=== PATIENT | male | born 1940 | race Caucasian/White ===

== ENCOUNTER 2021-05-10 05:11 | Emergency (ER) | payer OTHER ==
--- OUTSIDE RECORDS SUMMARY | 2021-05-10 05:14 | XMS REPORT | Continuity of Care Document ---
:1940 Author Organization [facility] t Address [address] [place] [address] Care Team Providers Name Role Phone Ervin Payne MD Primary Care Physician Johan Hernández MD Attending Clinician Johan HERNÁNDEZ Attending Clinician Unavailable ERVIN PAYNE Attending Clinician Unavailable ETTA Attending Clinician Unavailable Payers Payer Name Policy Type Policy Number Effective Date Expiration Date S ource Problems Condition Condition Condition Status Onset Resolution Last Treating Co mments Source Name Details Category Date Date Treatment Clinician Date Body mass Body mass Problem Active [facility] (BMI) of (BMI) of Memori a 26.0 to 26.0 to l 26.9 [facility] 26.9 [facility] Cardiac Cardiac Problem Active [facility] arrhythmia arrhythmia Josy kes - , , Memoria unspecifie unspecifie l d cardiac d cardiac Outp ati arrhythmia arrhythmia en t type type Clinics Overweight Overweight Problem [facility] High blood High blood Problem Active [facility] pressure pressure [facility] Elevated Elevated Problem Active [facility] BP without BP without Josy kes - diagnosis diagnosis Yuan wanda of of l hypertensi hypertensi Ou tpati on on ent Clinics Abnormal Abnormal Problem Active [facility] CBC CBC [facility] No known No known Disease Unive rs active active ity of problems problems [facility] Allergies, Adverse Reactions, Alerts Allergy Allergy Status Severity Reaction(s) Onset Inactive Treating Comm ents Source Name Type Date Date Clinician NO KNOWN Drug Active Univers ALLERGIE Class ity of S [facility] Social History Social Habit Start Date Stop Date Quantity Comments Source History SDMT University o f Alcohol Comment [place] [facility] History SDMT University o f Alcohol Std [place] [facility] History SDMT University o f Alcohol Binge [place] [facility] Exposure to Not sure University of SARS-CoV-2 [facility] (event) Branch Alcohol intake 2021-03-25 2021-03-25 Lifetime University of 00:00:00 00:00:00 non-drinker [facility] (finding) Branch Tobacco use and 2020-08-10 2020-08-10 Never used Universit y of exposure 00:00:00 00:00:00 [place] [facility] History SDOH 2020-08-10 2020-08-10 1 University o f Alcohol Frequency 00:00:00 00:00:00 [facility] edical Central Sex Assigned At [birth year] Universit y of 00:00:00 00:00:00 [facility] Smoking Status Start Date Stop Date Source Never smoker [facility] Medications Ordered Filled Start Stop Current Ordering Indication Dosage Frequency Signature Comments Components Source Medication Medication Date Date Medication? Clinician (SIG) Name Name methylPREDN 2020-06 Yes Take by Un neo ISolone 0-14 mouth ity of (MEDROL, 00:00: SEE-INSTRU Sathish as KIMI,) 4 mg 00 CTIONS. Medica l tablets follow Branch package directions methylPREDN 2020-06 Yes Take by Un neo ISolone 0-14 mouth ity of (MEDROL, 00:00: SEE-INSTRU Sathish as KIMI,) 4 mg 00 CTIONS. Medica l tablets follow Branch package directions methylPREDN 2020-06 Yes Take by Un neo ISolone 0-14 mouth ity of (MEDROL, 00:00: SEE-INSTRU Sathish as KIMI,) 4 mg 00 CTIONS. Medica l tablets follow Branch package directions meloxicam Yes [id number] 7.5mg Take 1 U nivers 7.5 mg 3-30 tablet by ity of tablet 00:00: mouth [place] 00 daily. Medical Branch meloxicam Yes [id number] 7.5mg Take 1 U nivers 7.5 mg 3-30 tablet by ity of tablet 00:00: mouth 00 daily. Medical Branch meloxicam Yes [id number] 7.5mg Take 1 U nivers 7.5 mg 3-30 tablet by ity of tablet 00:00: mouth [place] [id number] daily. Medical Branch Vitamin D Vitamin D Yes Marcella not [facility] Magnesium Magnesium Yes Marcella not [facility] Zinc Zinc Yes Marcella not [facility] Immunizations Ordered Filled Immunization Date Status Comments [facility] e Immunization Name Name SARS-COV-2 COVID-19 2020-08-29 Completed Unive rsity of PFIZER VACCINE 00:00:00 [facility] SARS-COV-2 COVID-19 2020-08-29 Completed Unive rsity of PFIZER VACCINE 00:00:00 [facility] SARS-COV-2 COVID-19 2020-08-29 Completed Unive rsity of PFIZER VACCINE 00:00:00 [facility] SARS-COV-2 COVID-19 2020-08-08 Completed Unive rsity of PFIZER VACCINE 00:00:00 [facility] SARS-COV-2 COVID-19 2020-08-08 Completed Unive rsity of PFIZER VACCINE 00:00:00 [facility] SARS-COV-2 COVID-19 2020-08-08 Completed Unive rsity of PFIZER VACCINE 00:00:00 [facility] Vital Signs Vital Name Observation Time Observation Value Comments Source Systolic blood 2021-03-25 13:28:00 165 mm[Hg] Univer sity of [facility] Diastolic blood 2021-03-25 13:28:00 95 mm[Hg] Unive rsity of [facility] Heart rate 2021-03-25 13:28:00 59 /min [facility] Body height 2021-03-25 13:28:00 172.7 cm [facility] Body weight 2021-03-25 13:28:00 78.019 kg [facility] BMI 2021-03-25 13:28:00 26.15 kg/m2 [facility] Procedures This patient has no known procedures. Encounters Start End Encounter Admission Attending Care Care Encounter Source Date/Time Date/Time Type Type Clinicians Facility Department ID 2021-03-25 2021-03-25 [facility] [id number] Univers 08:25:00 23:59:00 Encounter [place] [id number] ity of [place] [id number] Sathish as Akbar?Blea [id number] [place] h[place] sanchez [facility] [address] 2021-03-25 2021-03-25 [facility] [id number] Univers 08:22:43 08:47:38 Visit [place] [id number] it y of [place] [id number] Sathish as Akbar?Blea [id number] [place] dicclaudio sanchez 198 [facility] Office [facility] [address] 2021-03-25 2021-03-25 [facility] [id number] Univers 08:30:00 08:30:00 VENTURA [id number] [facility] 2021-03-25 2021-03-25 [facility] [id number] Univers 08:30:00 08:30:00 VENTURA [facility] 2021-03-24 2021-03-24 [facility] [id number] Univers 14:45:00 14:45:00 VENTURA [id number] [facility] 2021-03-24 2021-03-24 [facility] [id number] Univers 14:45:00 14:45:00 VENTURA [facility] 2021-03-22 2021-03-22 Outpatient Tahira DAYLALITOISAIAH [facility] [id number] Univers 10:30:00 10:30:00 TIMA [id number] [facility] 2021-03-22 2021-03-22 [facility] [id number] Univers 10:30:00 10:30:00 TIMA [facility] 2021-02-08 2021-02-08 [facility] [id number] Univers 08:15:00 08:15:00 TIMA [id number] [facility] 2021-02-08 2021-02-08 Outpatient Tahira PAYNE [facility] [id number] Univers 08:15:00 08:15:00 TIMA [facility] 2020-09-08 2020-09-08 Outpatient Tahira PAYNE [facility] [id number] Univers 10:30:00 10:30:00 [facility] [id number] [facility] 2020-09-08 Outpatient Tahira PAYNE [facility] [id number] Univers 10:30:00 10:30:00 TIMA [facility] 2020-08-29 2020-08-29 Outpatient [facility] [id number] Univers 08:40:00 [facility]:40:[facility] 2020-08-10 2020-08-10 Outpatient Tahira PAYNE [facility] [id number] Univers 09:30:00 09:30:00 TIMA [id number] ity [facility] 2020-08-10 2020-08-10 Outpatient Tahira PAYNE [facility] [id number] Univers 09:30:00 09:30:00 TIMA [facility] 2020-08-08 2020-08-08 Outpatient [facility] [id number] Univers 08:35:00 [facility]:35:[facility] 2020-06-17 2020-06-17 Outpatient Tahira ETTA [facility] [id number] Univers 17:40:00 17:40:00 FARSHAD [facility] 2020-01-21 2020-01-21 [facility] [id number] 13:00:00 13:00:00 [facility] 2019-09-05 2019-09-05 [facility] [id number] 08:08:00 08:08:00 [facility] 2019-07-25 2019-07-25 [facility] [id number] 13:45:00 13:45:00 [facility] Results This patient has no known results.
[2021-05-10 05:43] LABS: Basophils % 0.7 % (0-1.3); Hematocrit 37.7 % (39.6-49.0); MPV 7.5 fL (7.6-11.3); RBC Red Blood Cell Count 3.76 M/uL (4.33-5.43)
[2021-05-10 05:47] LABS: Protime INR 0.97
[2021-05-10 05:56] LABS: Urine Blood Trace-intact (Negative); Urine Glucose Negative (Negative); Urine Protein Negative (Negative); Urine Specific Gravity 1.025 (1.005-1.030)
[2021-05-10 05:56] LABS: BUN Blood Urea Nitrogen 17 mg/dL (7-18); Bicarbonate 27 mmol/L (21-32); Glucose Level 100 mg/dL (74-106); Sodium Level 143 mmol/L (136-145); Troponin (Emerg Dept Use Only) < 0.02 ng/mL (0.0-0.045)
--- NOTE | 2021-05-10 07:20 | RAD REPORT ---
EXAM DESCRIPTION: CT - Head angio - 05/10/2021 6:29 am CLINICAL HISTORY: WEAKNESS, stroke-like symptoms TECHNIQUE: During dynamic enhancement using nonionic IV contrast, axial 1 millimeter thick images of the head were obtained. Sagittal and axial reconstruction images were generated using MIP technique and reviewed. All CT scans are performed using dose optimization technique as appropriate and may include automated exposure control or mA/KV adjustment according to patient size. COMPARISON: CT head same date FINDINGS: No aneurysm or vascular malformation identified. Major venous sinuses are patent. Anterior communicating artery is present. The anterior cerebral and middle cerebral artery distributi on show no stenosis, vasculitis or named branch occlusion. The internal carotid arteries show atheros clerotic calcification but no significant luminal narrowing. Basilar artery and distal vertebral art zechariah also without significant finding. Left posterior cerebral artery distribution is unremarkable. There is an acute truncation of the right posterior cerebral artery at the P1 segment origin. No post erior communicating artery or alternative supply to the right BLOCK OPERATOR distribution is seen. CT head exam of the same day does not clearly show evidence for right BLOCK OPERATOR infarction. 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 N o posterior communicating artery or other anatomic variants supply to the right BLOCK OPERATOR distribution. Correlation is needed with any visual field defects or other stroke-like symptoms referable to the me dial right occipital lobe or medial right temporal lobe.
--- NOTE | 2021-05-10 07:24 | RAD REPORT ---
EXAM DESCRIPTION: CT - Neck Angio - 05/10/2021 6:29 am CLINICAL HISTORY: weakness, left-sided facial droop, stroke-like symptoms TECHNIQUE: During dynamic enhancement using nonionic IV contrast, axial 2 mm thick images of the nec k were obtained. Sagittal and axial reconstruction images were generated using MIP technique and revi ewed. All CT scans are performed using dose optimization technique as appropriate and may include automated exposure control or mA/KV adjustment according to patient size. COMPARISON: CT head same date, CT head same date FINDINGS: No aneurysm or vascular malformation identified. No carotid or vertebral dissection. Aortic arch is somewhat limited in evaluation due to bone artifact and dense contrast in the left sub clavian and brachiocephalic veins. Aortic arch is bovine configuration with no origins stenosis. No v ertebral artery origin abnormality identified. Left common carotid artery is tortuous proximally. Min imal atherosclerotic calcifications near the right carotid bulb present without luminal narrowing. No vertebral artery or carotid stenosis, vasculitis or significant finding. Patient has cervical spine degenerative change without acute or pathologic process. Multilevel forami nal stenosis present due to uncovertebral joint hypertrophy and facet joint hypertrophy. IMPRESSION: Negative CT angio neck examination for acute or significant finding.
[2021-05-10] MEDS ORDERED: ALTEPLASE 100 ML IV ONE (07:33)
[2021-05-10] MEDS ORDERED: NA CHLORIDE 0.9% 100 ML ONE (08:20)
--- NOTE | 2021-05-10 08:27 | ER ---
Nurse's Notes [facility] Name: Shahbaz Harper Age: 81 yrs Sex: Male : 1940 Arrival Date: 05/10/2021 Time: 05:15 Bed 3 Private MD: Diagnosis: Cerebral infarction, unspecified Presentation: 05/10 05:10 Chief complaint: EMS states: Called for patient with sudden onset of left-sided lp1 weakness, left facial droop after walking out of bathroom, denies fall; EMS reports tone time at 0420 from patient's . 05:10 Coronavirus screen: At this time, the client does not indicate any symptoms associated lp1 with coronavirus-19. Ebola Screen: No symptoms or risks identified at this time. An acute neurological deficit is present. The patients blood glucose was checked before arriving to the hospital and was found to be normal. Initial Sepsis Screen: Does the patient meet any 2 criteria? No. Patient's initial sepsis screen is negative. Does the patient have a suspected source of infection? No. Patient's initial sepsis screen is negative. Risk Assessment: Do you want to hurt yourself or someone else? Patient reports no desire to harm self or others. Onset of symptoms was May 10, 2021 at 04:20. 05:10 Method Of Arrival: EMS: [facility] lp1 05:10 Acuity: OLE 1 lp1 05:15 Care prior to arrival: IV initiated. 18 GA, in the left antecubital area, Glucose lp1 check: 118. Triage Assessment: 06:02 The onset of the patients symptoms was May 10, 2021 at 04:00. General: Appears in tw5 no apparent distress. Behavior is calm, cooperative. Neuro: Speech is slurred, Facial droop on left. 07:30 Neuro: Reports weakness in left arm and left leg. jd3 Stroke Activation: Symptom onset < 3 hours Physician: Stroke Attending; Name: Erin; Notified At: 05:09; Arrived At: 05:09 Physician: Chief Stroke Resident; Name: ; Notified At: 05:09; Arrived At: Physician: Stroke Resident; Name: ; Notified At: 05:09; Arrived At: Physician: ED Attending; Name: Erin; Notified At: 05:09; Arrived At: 05:09 Physician: ED Resident; Name: ; Notified At: 05:09; Arrived At: Historical: - Allergies: 05:38 No Known Allergies; lp1 - Home Meds: 05:38 None [Active]; lp1 - PMHx: 05:38 None; lp1 - PSHx: 05:38 Tumor removal; lp1 - Immunization history:: Adult Immunizations up to date. - Social history:: Smoking status: Patient denies any tobacco usage or history of. Screenin:20 Fall Risk Fall in past 12 months (25 points). Secondary diagnosis (15 points) IV access tw5 (20 points). Ambulatory Aid- None/Bed Rest/Nurse Assist (0 pts). Gait- Impaired (20 pts.). Mental Status- Overestimates/Forgets Limitations (15 pts.). 05:38 Abuse screen: Denies threats or abuse. Denies injuries from another. Nutritional lp1 screening: No deficits noted. Tuberculosis screening: No symptoms or risk factors identified. Assessment: 05:10 General: Patient arrival; Transported to CT on EMS stretcher. lp1 05:20 VAN Scoring: Arm Drift: Severe drift Patient has been NPO before screening. The patient tw5 is alert, and able to follow commands. The patient exhibits slurred or garbled speech. Provider notified of the indication for Speech Therapy consult. The patient is exhibiting difficulty speaking. The patient is exhibiting difficulty understanding words. The patient is able to swallow own secretions with no drooling or need for suction. The patient failed the bedside swallow screening. The patient will be kept NPO until cleared by Speech Therapy or Physician. Provider notified of bedside swallow screening results: Clement Khan MD. Nursing staff did not feel comfortable giving patient water at this time. Nursing staff did not feel comfortable giving patient water at this time. Mild accumulation of saliva noted. T-PA (Activase) Screening: Indications: Definite evidence of stroke, ischemic, embolic, or hypertensive: Yes. Treatment will start within 4.5 hours onset of symptoms: Yes. Consent for thrombolytic therapy: Yes. Pain: Denies pain. Neuro: Level of Consciousness is awake, alert, obeys commands, Resume Specialist are weak on left Nursing staff advocated for immediate TPA infusion. Doctor stated he wanted to wait until the blood work from the lab had returned. . 06:05 General: Nursing staff still awaiting on further orders from provider. tw5 06:07 General: Patient being transported back to [place] for the second time. . tw5 06:11 General: Spoke to provider about the patient's inability to be able to sign anything. tw5 Patient will hold pen in right hand and state that he is going to sign, but will quickly forget about the pen and simply hold it in the air. . 06:54 General: arrived at the bedside. She stated " I woke around 330 and must have tw5 woken him up. He got to the bathroom and on his way back he fell on his side of the bed. I went over to him and he couldn't get up. I noticed that his face was dropping so I had him lift his arms up and he was having trouble with his left. I would have just drove him to the hospital myself, but I couldn't get him up off the floor. He is a perfectly healthy individual otherwise. I am hoping we can get him back to tip top shape". 07:35 General: Appears comfortable, Behavior is calm, cooperative. Pain: Denies pain. Neuro: jd3 Level of Consciousness is awake, alert, obeys commands, Oriented to person, place, time, situation, Resume Specialist are weak on left. Cardiovascular: Capillary refill < 3 seconds Patient's skin is warm and dry. Rhythm is regular. Respiratory: Airway is patent Respiratory effort is even, unlabored, Respiratory pattern is regular, symmetrical. GI: No signs and/or symptoms were reported involving the gastrointestinal system. : No signs and/or symptoms were reported regarding the genitourinary system. EENT: No signs and/or symptoms were reported regarding the EENT system. Derm: Skin is intact, Skin is dry, Skin is normal, Skin temperature is warm. Musculoskeletal: Circulation, motion, and sensation intact. Range of motion: limited in left arm and left leg, pt reporting weakness. 07:40 Reassessment: provider notified of increase in NIH score. pt prepped for TPA. conformed jd3 consent signed. 07:54 Reassessment: 1 on 1 care started with TPA administration started. jd3 08:30 Reassessment: Patient and/or family updated on plan of care and expected duration. Pain jd3 level reassessed. Patient is alert, oriented x 3, equal unlabored respirations, skin warm/dry/pink. nurse at bedside administering TPA. with 1 on 1 care. Patient states symptoms have improved. 09:14 Reassessment: No changes from previously documented assessment. Patient and/or family jd3 updated on plan of care and expected duration. Pain level reassessed. Patient is alert, oriented x 3, equal unlabored respirations, skin warm/dry/pink. pt resting in bed with at bedside. call beltran in reach. transfer form signed. awaiting life flight for transfer. Patient states symptoms have improved. 09:21 Reassessment: Patient and/or family updated on plan of care and expected duration. Pain jd3 level reassessed. Patient is alert, oriented x 3, equal unlabored respirations, skin warm/dry/pink. report given to life flight. Patient states symptoms have improved. Vital Signs: 05:10 BP 155 / 73; Pulse 67; Resp 18; Temp 97.5(O); Pulse Ox 100% on R/A; Weight 77.11 kg lp1 (R); Height 5 ft. 8 in. (172.72 cm); Pain 0/10; 07:50 BP 170 / 85; Pulse 68; Resp 17 S; Pulse Ox 100% on R/A; jd3 08:30 BP 162 / 101; Pulse 61; Resp 18 S; Pulse Ox 100% on R/A; jd3 09:14 BP 166 / 99; Pulse 63; Resp 18 S; Pulse Ox 99% on R/A; jd3 05:10 Body Mass Index 25.85 (77.11 kg, 172.72 cm) lp1 NIH Stroke Scale Scores: 05:20 NIHSS Score: 7 tw5 05:41 NIHSS Score: 7 mh7 07:35 NIHSS Score: 11 jd3 09:00 NIHSS Score: 2 jd3 ED Course: 05:15 Patient arrived in ED. tw5 05:[address] tw5 05:16 Cindy Bradley is Primary Nurse. tw5 05:20 Patient has correct armband on for positive identification. Placed in gown. Bed in low tw5 position. Call light in reach. Side rails up X2. overhead cleaner on. Pulse ox on. NIBP on. Door closed. Noise minimized. Lights dimmed. Moved to private room. Warm blanket given. Verbal reassurance given. 05:20 Initial lab(s) drawn, by ED staff, sent to lab. Ralph cath inserted, using sterile tw5 technique, 18 Fr., by ED staff, balloon inflated, to gravity drainage, urine specimen collected. Maintain EMS IV. Dressing intact. Good blood return noted. Site clean \\T\\ dry. Gauge \\T\\ site: 18 LAC. 05:21 Ct Stroke Brain Wo Cont In Process Unspecified. EDMS 05:25 EKG completed in triage. Results shown to MD. tw5 05:27 Clement Khan MD is Attending Physician. mh7 05:38 Triage completed. lp1 05:38 Arm band placed on. lp1 05:56 Stroke CXR 1 View In Process Unspecified. EDMS 06:05 COVID-19 SARS RT PCR (Document "Date of Onset" if Symptomatic) Sent. tw5 06:29 CT Head Angio In Process Unspecified. EDMS 06:29 CT Neck Angio In Process Unspecified. EDMS 06:54 TPA consent was signed by at the bedside. tw5 07:54 Inserted saline lock: 22 gauge in right antecubital area, using aseptic technique. jd3 08:16 Attending Physician role handed off by Clement Khan MD juan 08:16 Theo Rubio MD is Attending Physician. juan 09:21 Assist provider with bone marrow aspiration. Patient transferred, IV remains in place. jd3 Administered Medications: 07:54 Drug: Alteplase (Bolus for Stroke) - Activase 0.09 mg/kg {Co-Signature: ss (Estefanía Bush RN).} Route: IV Thrombolytics; Infused Over: 1 mins; 08:54 Follow up: Response: No adverse reaction jd3 09:23 Not Given (pt transferedd): foLIC Acid 1 mg IVPB once jd3 09:23 Not Given (pt transferedd): NS 0.9% 1000 ml IV at 1 bolus Per protocol; 1000 mL bolus jd3 Point of Care Testing: Blood Glucose: 06:02 Blood Glucose: 118 mg/dL; tw5 Ranges: Output: 09:21 Urine: 1200ml (Ralph); Total: 1200ml. jd3 Outcome: 08:26 ER care complete, transfer ordered by MD. martinez 09:22 Transferred by helicopter to [facility] [place], Transfer form completed. jd3 X-rays sent w/ patient. 09:22 Condition: stable 09:22 Instructed on the need for transfer, Demonstrated understanding of instructions. 09:29 Patient left the ED. jd3 NIH Stroke Scale - NIH Stroke Score Date: 05/10/2021 Time: 05:20 Total Score = 7 1a. Level of Consciousness (LOC) - 0(Alert) 1b. Level of Consciousness (LOC) (Month \\T\\ Age) - 0(Both) 1c. LOC Commands (Open \\T\\ Closes Eyes/Electrician Yard) - 0(Both) 2. Best Gaze (Lateral Gaze Paresis) - 0(Normal) 3. Visual Field Loss - 0(No visual loss) 4. Facial Palsy - 2(Partial paralysis) 5a. Left Arm: Motor (10-second hold) - 0(No drift) 5b. Right Arm: Motor (10-second hold) - 2(Drift, some effort against gravity) 6a. Left Leg: Motor (5-second hold - always test supine) - 0(No drift) 6b. Right Leg: Motor (5-second hold - always test supine) - 0(No drift) 7. Limb Ataxia (finger/nose \\T\\ heel/vivas - test with eyes open) - 1(Present in one limb) 8. Sensory Loss (pinprick arms/legs/face) - 0(Normal) 9. Best Language: Aphasia (description/naming/reading) - 1(Mild to moderate aphasia) 10. Dysarthria (speech clarity - read or repeat words) - 1(Mild to Moderate) 11. Extinction and Inattention (visual/tactile/auditory/spatial/personal) - 0(No abnormality) Initials: tw5 NIH Stroke Scale - NIH Stroke Score Date: 05/10/2021 Time: 05:41 Total Score = 7 1a. Level of Consciousness (LOC) - 0(Alert) 1b. Level of Consciousness (LOC) (Month \\T\\ Age) - 0(Both) 1c. LOC Commands (Open \\T\\ Closes Eyes/Electrician Yard) - 0(Both) 2. Best Gaze (Lateral Gaze Paresis) - 0(Normal) 3. Visual Field Loss - 0(No visual loss) 4. Facial Palsy - 2(Partial paralysis) 5a. Left Arm: Motor (10-second hold) - 2(Drift, some effort against gravity) 5b. Right Arm: Motor (10-second hold) - 0(No drift) 6a. Left Leg: Motor (5-second hold - always test supine) - 0(No drift) 6b. Right Leg: Motor (5-second hold - always test supine) - 0(No drift) 7. Limb Ataxia (finger/nose \\T\\ heel/vivas - test with eyes open) - 1(Present in one limb) 8. Sensory Loss (pinprick arms/legs/face) - 0(Normal) 9. Best Language: Aphasia (description/naming/reading) - 1(Mild to moderate aphasia) 10. Dysarthria (speech clarity - read or repeat words) - 1(Mild to Moderate) 11. Extinction and Inattention (visual/tactile/auditory/spatial/personal) - 0(No abnormality) Initials: [facility] NIH Stroke Scale - NIH Stroke Score Date: 05/10/2021 Time: 07:35 Total Score = 11 1a. Level of Consciousness (LOC) - 0(Alert) 1b. Level of Consciousness (LOC) (Month \\T\\ Age) - 0(Both) 1c. LOC Commands (Open \\T\\ Closes Eyes/Electrician Yard) - 0(Both) 2. Best Gaze (Lateral Gaze Paresis) - 1(Partial gaze palsy) 3. Visual Field Loss - 1(Partial hemianopia) 4. Facial Palsy - 2(Partial paralysis) 5a. Left Arm: Motor (10-second hold) - 1(Drift) 5b. Right Arm: Motor (10-second hold) - 0(No drift) 6a. Left Leg: Motor (5-second hold - always test supine) - 1(Drift) 6b. Right Leg: Motor (5-second hold - always test supine) - 0(No drift) 7. Limb Ataxia (finger/nose \\T\\ heel/vivas - test with eyes open) - 2(Present in two limbs) 8. Sensory Loss (pinprick arms/legs/face) - 0(Normal) 9. Best Language: Aphasia (description/naming/reading) - 1(Mild to moderate aphasia) 10. Dysarthria (speech clarity - read or repeat words) - 1(Mild to Moderate) 11. Extinction and Inattention (visual/tactile/auditory/spatial/personal) - 1(Present) Initials: rashad NIH Stroke Scale - NIH Stroke Score Date: 05/10/2021 Time: 09:00 Total Score = 2 1a. Level of Consciousness (LOC) - 0(Alert) 1b. Level of Consciousness (LOC) (Month \\T\\ Age) - 0(Both) 1c. LOC Commands (Open \\T\\ Closes Eyes/Electrician Yard) - 0(Both) 2. Best Gaze (Lateral Gaze Paresis) - 0(Normal) 3. Visual Field Loss - 0(No visual loss) 4. Facial Palsy - 1(Minor Paralysis) 5a. Left Arm: Motor (10-second hold) - 0(No drift) 5b. Right Arm: Motor (10-second hold) - 0(No drift) 6a. Left Leg: Motor (5-second hold - always test supine) - 0(No drift) 6b. Right Leg: Motor (5-second hold - always test supine) - 0(No drift) 7. Limb Ataxia (finger/nose \\T\\ heel/vivas - test with eyes open) - 0(Absent) 8. Sensory Loss (pinprick arms/legs/face) - 0(Normal) 9. Best Language: Aphasia (description/naming/reading) - 1(Mild to moderate aphasia) 10. Dysarthria (speech clarity - read or repeat words) - 0(Normal) 11. Extinction and Inattention (visual/tactile/auditory/spatial/personal) - 0(No abnormality) Initials: [email or web address] Signatures: Dispatcher [employer] Theo Wesley MD MD cha Pena, Laura, RN RN 1 Elvin Smith RN RN jd3 Holmes, Maurice, MD MD 7 Cindy Bradley 5 Estefanía Bush RN Corrections: (The following items were deleted from the chart) 06:31 05:10 BP 155 / 73; Pulse 67bpm; Resp 18bpm; Pulse Ox 100% RA; 77.11 kg lp1 Reported; Height 5 ft. 8 in.; BMI: 25.8; Pain 0/10; lp1 19:32 07:40 Reassessment: provider notified of increase in NIH score. pt prepped for jd3 TPA jd3 19:32 08:30 Reassessment: Patient and/or family updated on plan of care and expected jd3 duration. Pain level reassessed. Patient is alert, oriented x 3, equal unlabored respirations, skin warm/dry/pink. Patient states symptoms have improved. jd3 :32 09:14 Reassessment: No changes from previously documented assessment. Patient jd3 and/or family updated on plan of care and expected duration. Pain level reassessed. Patient is alert, oriented x 3, equal unlabored respirations, skin warm/dry/pink. jd3 :32 09:21 Reassessment: Patient and/or family updated on plan of care and expected jd3 duration. Pain level reassessed. Patient is alert, oriented x 3, equal unlabored respirations, skin warm/dry/pink. report given to life flight. Patient states symptoms have improved. jd3
--- NOTE | 2021-05-10 08:27 | EDPHYS ---
Physician Documentation [facility] Name: Shahbaz Harper Age: 81 yrs Sex: Male : 1940 Arrival Date: 05/10/2021 Time: 05:15 Bed 3 Private MD: ED Physician Theo Rubio HPI: 05/10 05:27 This 81 yrs old Male presents to ER via Unassigned with complaints of S/S of Possible mh7 Stroke. 05:27 The patient's problem is reported as a facial droop, on left, weakness, in the left mh7 upper extremity, in the left side of face. Onset: The symptoms/episode began/occurred today, at 04:00. 05:27 Duration: The episode is continuous. Context: the episode(s) was witnessed, by no one, mh7 symptoms became apparent on May 10, 2021, occurred at home, occurred while the patient was walking, Possible contributing factors include: none. The symptoms are alleviated by nothing. The symptoms are aggravated by nothing. 05:27 Associated signs and symptoms: Pertinent positives: dizziness, gait abnormality, mh7 lightheadedness, weakness, Pertinent negatives: abdominal pain, agitation, blurred vision, chest pain, combativeness, confusion, diaphoresis, diarrhea. Severity of symptoms: At their worst the symptoms were severe today, in the emergency department the symptoms are unchanged. Patient's baseline: Neuro: alert and fully oriented, Motor: no deficits, Ambulation: walks without assistance, Speech: normal. 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 - Social history:: Smoking status: Patient denies any tobacco usage or history of. ROS: 05:27 Constitutional: Negative for fever, chills, and weight loss, Eyes: Negative for injury, mh7 pain, redness, and discharge, ENT: Negative for injury, pain, and discharge, Neck: Negative for injury, pain, and swelling, Cardiovascular: Negative for chest pain, palpitations, and edema, Respiratory: Negative for shortness of breath, cough, wheezing, and pleuritic chest pain, Abdomen/GI: Negative for abdominal pain, nausea, vomiting, diarrhea, and constipation, Back: Negative for injury and pain, : Negative for injury, bleeding, discharge, and swelling, Skin: Negative for injury, rash, and discoloration, Psych: Negative for depression, anxiety, suicide ideation, homicidal ideation, and hallucinations, Allergy/Immunology: Negative for hives, rash, and allergies, Endocrine: Negative for neck swelling, polydipsia, polyuria, polyphagia, and marked weight changes, Hematologic/Lymphatic: Negative for swollen nodes, abnormal bleeding, and unusual bruising. Exam: 05:27 Constitutional: This is a well developed, well nourished patient who is awake, alert, mh7 and in no acute distress. 05:27 Head/Face: Normocephalic, atraumatic. Eyes: Pupils equal round and reactive to light, extra-ocular motions intact. Lids and lashes normal. Conjunctiva and sclera are non-icteric and not injected. Cornea within normal limits. Periorbital areas with no swelling, redness, or edema. Neck: Trachea midline, no thyromegaly or masses palpated, and no cervical lymphadenopathy. Supple, full range of motion without nuchal rigidity, or vertebral point tenderness. No Meningismus. Chest/axilla: Normal chest wall appearance and motion. Nontender with no deformity. No lesions are appreciated. Cardiovascular: Regular rate and rhythm with a normal S1 and S2. No gallops, murmurs, or rubs. Normal PMI, no JVD. No pulse deficits. Respiratory: Lungs have equal breath sounds bilaterally, clear to auscultation and percussion. No rales, rhonchi or wheezes noted. No increased work of breathing, no retractions or nasal flaring. Abdomen/GI: Soft, non-tender, with normal bowel sounds. No distension or tympany. No guarding or rebound. No evidence of tenderness throughout. Back: No spinal tenderness. No costovertebral tenderness. Full range of motion. Skin: Warm, dry with normal turgor. Normal color with no rashes, no lesions, and no evidence of cellulitis. Psych: Awake, alert, with orientation to person, place and time. Behavior, mood, and affect are within normal limits. 05:27 Head/face: 05:27 Musculoskeletal/extremity: Extremities: noted in the left arm: Weakness. mh7 05:27 Neuro: Orientation: is normal, Mentation: is normal, Memory: is normal, Cranial nerves: facial droop noted on left, with forehead involved. Ptosis of left eyebrow, Cerebellar function: dysmetria is noted on the left, Motor: strength is 5/5 in the right arm, Strength is 2/5 in the left arm, Sensation: no obvious gross deficits, Gait: not tested. seizure activity, is not displayed by the patient, Abnormal movements: there are no abnormal movements. 05:43 Radiologist reports: Low density area right frontal lobe of indeterminate age. No mh7 intracranial hemorrhage. 08:27 ECG was reviewed by the Attending Physician. [facility] Vital Signs: 05:10 BP 155 / 73; Pulse 67; Resp 18; Temp 97.5(O); Pulse Ox 100% on R/A; Weight 77.11 kg lp1 (R); Height 5 ft. 8 in. (172.72 cm); Pain 0/10; 07:50 BP 170 / 85; Pulse 68; Resp 17 S; Pulse Ox 100% on R/A; jd3 08:30 BP 162 / 101; Pulse 61; Resp 18 S; Pulse Ox 100% on R/A; jd3 09:14 BP 166 / 99; Pulse 63; Resp 18 S; Pulse Ox 99% on R/A; jd3 05:10 Body Mass Index 25.85 (77.11 kg, 172.72 cm) lp1 NIH Stroke Scale Scores: 05:20 NIHSS Score: 7 tw5 05:41 NIHSS Score: 7 mh7 07:35 NIHSS Score: 11 jd3 09:00 NIHSS Score: 2 jd3 MDM: 05:46 Physician consultation: Canelo Tsang MD was contacted at 05:46, regarding patient's mh7 condition, Discussed with Dr. Tsang who recommended CT angio head neck prior to considering TPA due to CT reading as discussed with radiologist read low-density area right frontal lobe of indeterminate age which will need further clarification as it may pose risk of bleeding to area if given TPA.. 08:10 ED course: Upon receipt of CT angio brain and neck discussed with Dr. Tsang and his 7 recommendation was TPA given here in transfer patient to [facility] for four-vessel angiogram and possible intra-arterial intervention.. 08:14 Transition of care: After a detail discussion of the patient's case, care is 7 transferred to Theo Rubio MD. 08:16 Patient medically screened. [facility] 08:23 Data reviewed: vital signs, nurses notes, EMS record, lab test result(s), EKG, juan radiologic studies, CT scan, plain films. 08:28 Differential diagnosis: CVA, TIA, paralysis. Data interpreted: teletypesetter monitor: rate is juan 67 beats/min, rhythm is regular, Pulse oximetry: on room air is 100 %. Test interpretation: by ED physician or midlevel provider: ECG, plain radiologic studies. Counseling: I had a detailed discussion with the patient and/or guardian regarding: the historical points, exam findings, and any diagnostic results supporting the discharge/admit diagnosis, lab results, radiology results, the need to transfer to another facility, for higher level of care, [facility] does not immediately have the required specialist. 05/10 05:35 Order name: Basic Metabolic Panel; Complete Time: 06:01 [facility] 05/10 05:35 Order name: CBC with Diff; Complete Time: 06:01 [facility] 05/10 05:35 Order name: Protime (+inr); Complete Time: 06:01 [facility] 05/10 05:35 Order name: Ptt, Activated; Complete Time: 06:01 [facility] 05/10 05:35 Order name: Troponin (emerg Dept Use Only); Complete Time: 06:01 [facility] 05/10 05:46 Order name: COVID-19 SARS RT PCR (Document "Date of Onset" if Symptomatic); Complete lp1 Time: 06:59 05/10 05:18 Order name: Ct Stroke Brain Wo Cont [facility] 05/10 05:35 Order name: Stroke CXR 1 View [facility] 05/10 05:52 Order name: CT Head Angio; Complete Time: 07:22 [facility] 05/10 05:52 Order name: CT Neck Angio; Complete Time: 07:24 [facility] 05/10 05:56 Order name: Urine Dipstick-Ancillary; Complete Time: 06:01 [facility] 05/10 05:35 Order name: EKG; Complete Time: 05:35 [facility] 05/10 05:35 Order name: Cardiac monitoring; Complete Time: 05:38 [facility] 05/10 05:35 Order name: EKG - Nurse/Tech; Complete Time: 05:38 [facility] 11/29 05:35 Order name: IV Saline Lock; Complete Time: 05:05/10 05:35 Order name: Labs collected and sent; Complete Time: :05/10 05:35 Order name: NPO; Complete Time: 06:04 05/10 05:35 Order name: O2 Per Protocol; Complete Time: :05/10 05:35 Order name: O2 Sat Monitoring; Complete Time: :05/10 05:35 Order name: Stroke Swallow Screen; Complete Time: 06:05 EC:27 Rate is 60 beats/min. QRS Conner is Normal. [place] interval is normal. QRS interval is juan normal. QT interval is normal. No Q waves. T waves are Normal. No ST changes noted. Clinical impression: NSR w/ Non-specific ST/T Changes and No evidence of ischemia. Interpreted by me. Reviewed by me. Administered Medications: 07:54 Drug: Alteplase (Bolus for Stroke) - Activase 0.09 mg/kg {Co-Signature: ss (Estefanía Bush RN).} Route: IV Thrombolytics; Infused Over: 1 mins; 08:54 Follow up: Response: No adverse reaction jd3 09:23 Not Given (pt transferedd): foLIC Acid 1 mg IVPB once jd3 09:23 Not Given (pt transferedd): NS 0.9% 1000 ml IV at 1 bolus Per protocol; 1000 mL bolus jd3 Point of Care Testing: Blood Glucose: 06:02 Blood Glucose: 118 mg/dL; tw5 Ranges: Critical Glucose Levels:Adult <50 mg/dl or >400 mg/dl <40 mg/dl or >180 mg/dl Disposition Summary: 05/10/21 08:26 Transfer Ordered Transfer Location: [facility] juan Reason: Higher level of care juan Condition: Serious juan Problem: new juan Symptoms: have improved juan Accepting Physician: to dr thurston(05/10/21 09:29) jd3 Diagnosis - Cerebral infarction, unspecified juan Forms: - Medication Reconciliation Form juan - SBAR form juan NIH Stroke Scale - NIH Stroke Score Date: 05/10/2021 Time: 05:20 Total Score = 7 1a. Level of Consciousness (LOC) - 0(Alert) 1b. Level of Consciousness (LOC) (Month \\T\\ Age) - 0(Both) 1c. LOC Commands (Open \\T\\ Closes Eyes/Sailmaker) - 0(Both) 2. Best Gaze (Lateral Gaze Paresis) - 0(Normal) 3. Visual Field Loss - 0(No visual loss) 4. Facial Palsy - 2(Partial paralysis) 5a. Left Arm: Motor (10-second hold) - 0(No drift) 5b. Right Arm: Motor (10-second hold) - 2(Drift, some effort against gravity) 6a. Left Leg: Motor (5-second hold - always test supine) - 0(No drift) 6b. Right Leg: Motor (5-second hold - always test supine) - 0(No drift) 7. Limb Ataxia (finger/nose \\T\\ heel/vivas - test with eyes open) - 1(Present in one limb) 8. Sensory Loss (pinprick arms/legs/face) - 0(Normal) 9. Best Language: Aphasia (description/naming/reading) - 1(Mild to moderate aphasia) 10. Dysarthria (speech clarity - read or repeat words) - 1(Mild to Moderate) 11. Extinction and Inattention (visual/tactile/auditory/spatial/personal) - 0(No abnormality) Initials: tw5 NIH Stroke Scale - NIH Stroke Score Date: 05/10/2021 Time: 05:41 Total Score = 7 1a. Level of Consciousness (LOC) - 0(Alert) 1b. Level of Consciousness (LOC) (Month \\T\\ Age) - 0(Both) 1c. LOC Commands (Open \\T\\ Closes Eyes/Sailmaker) - 0(Both) 2. Best Gaze (Lateral Gaze Paresis) - 0(Normal) 3. Visual Field Loss - 0(No visual loss) 4. Facial Palsy - 2(Partial paralysis) 5a. Left Arm: Motor (10-second hold) - 2(Drift, some effort against gravity) 5b. Right Arm: Motor (10-second hold) - 0(No drift) 6a. Left Leg: Motor (5-second hold - always test supine) - 0(No drift) 6b. Right Leg: Motor (5-second hold - always test supine) - 0(No drift) 7. Limb Ataxia (finger/nose \\T\\ heel/vivas - test with eyes open) - 1(Present in one limb) 8. Sensory Loss (pinprick arms/legs/face) - 0(Normal) 9. Best Language: Aphasia (description/naming/reading) - 1(Mild to moderate aphasia) 10. Dysarthria (speech clarity - read or repeat words) - 1(Mild to Moderate) 11. Extinction and Inattention (visual/tactile/auditory/spatial/personal) - 0(No abnormality) Initials: mh7 NIH Stroke Scale - NIH Stroke Score Date: 05/10/2021 Time: 07:35 Total Score = 11 1a. Level of Consciousness (LOC) - 0(Alert) 1b. Level of Consciousness (LOC) (Month \\T\\ Age) - 0(Both) 1c. LOC Commands (Open \\T\\ Closes Eyes/Sailmaker) - 0(Both) 2. Best Gaze (Lateral Gaze Paresis) - 1(Partial gaze palsy) 3. Visual Field Loss - 1(Partial hemianopia) 4. Facial Palsy - 2(Partial paralysis) 5a. Left Arm: Motor (10-second hold) - 1(Drift) 5b. Right Arm: Motor (10-second hold) - 0(No drift) 6a. Left Leg: Motor (5-second hold - always test supine) - 1(Drift) 6b. Right Leg: Motor (5-second hold - always test supine) - 0(No drift) 7. Limb Ataxia (finger/nose \\T\\ heel/vivas - test with eyes open) - 2(Present in two limbs) 8. Sensory Loss (pinprick arms/legs/face) - 0(Normal) 9. Best Language: Aphasia (description/naming/reading) - 1(Mild to moderate aphasia) 10. Dysarthria (speech clarity - read or repeat words) - 1(Mild to Moderate) 11. Extinction and Inattention (visual/tactile/auditory/spatial/personal) - 1(Present) Initials: jd3 NIH Stroke Scale - NIH Stroke Score Date: 05/10/2021 Time: 09:00 Total Score = 2 1a. Level of Consciousness (LOC) - 0(Alert) 1b. Level of Consciousness (LOC) (Month \\T\\ Age) - 0(Both) 1c. LOC Commands (Open \\T\\ Closes Eyes/Sailmaker) - 0(Both) 2. Best Gaze (Lateral Gaze Paresis) - 0(Normal) 3. Visual Field Loss - 0(No visual loss) 4. Facial Palsy - 1(Minor Paralysis) 5a. Left Arm: Motor (10-second hold) - 0(No drift) 5b. Right Arm: Motor (10-second hold) - 0(No drift) 6a. Left Leg: Motor (5-second hold - always test supine) - 0(No drift) 6b. Right Leg: Motor (5-second hold - always test supine) - 0(No drift) 7. Limb Ataxia (finger/nose \\T\\ heel/vivas - test with eyes open) - 0(Absent) 8. Sensory Loss (pinprick arms/legs/face) - 0(Normal) 9. Best Language: Aphasia (description/naming/reading) - 1(Mild to moderate aphasia) 10. Dysarthria (speech clarity - read or repeat words) - 0(Normal) 11. Extinction and Inattention (visual/tactile/auditory/spatial/personal) - 0(No abnormality) Initials: jd3 Signatures: Dispatcher [employer] EDTheo Montiel MD MD cha Pena, Laura RN RN lp1 Elvin Smith RN RN jd3 Clement Khan MD MD mh7 Estefanía Bush RN ss Corrections: (The following items were deleted from the chart) 09:29 08:[address] karena solorzano
[2021-05-10 09:39] VITALS: BP 166/99; O2SAT 99
--- NOTE | 2021-05-10 10:14 | RAD REPORT ---
EXAM DESCRIPTION: RAD - Chest Single View - 05/10/2021 5:56 am CLINICAL HISTORY: PALPITATIONS COMPARISON: None TECHNIQUE: AP portable chest image was obtained 05/10/2021 5:56 am . FINDINGS: Lungs are clear. Heart and vasculature are normal. No measurable pleural effusion and no p neumothorax. No acute bony abnormality seen. No acute aortic findings suspected. IMPRESSION: No acute cardiopulmonary process.
--- NOTE | 2021-05-10 14:46 | RAD REPORT ---
EXAM DESCRIPTION: CT - Ct Stroke Brain Wo Cont - 05/10/2021 6:42 am CLINICAL HISTORY: 81 years Male LEFT SIDED FACIAL DROOP/WEAKNESS TECHNIQUE: Multiple axial CT images of the brain were performed followed by sagittal and coronal rec onstructed images. The CT study is performed according to ALARA (as low as reasonably achievable) or ALARA/IMAGE GENTLY, with automatic adjustment of mA and/or kV according to patient size. Performed on: 05/10/2021 at 5:18 AM COMPARISON: None. FINDINGS: Brain: There is no evidence of mass, acute mass effect or midline shift. There are no acut e extra-axial fluid collections. There is no evidence of acute intracranial hemorrhage. The cerebra l sulci and ventricles are prominent consistent with mild cerebral volume loss. There are scattered a reas of decreased attenuation within the subcortical and periventricular white matter most likely due to mild chronic microangiopathy. There is a subtle area of decreased attenuation within the right fr ontal lobe consistent with age indeterminant ischemic changes. There is no evidence of a hyperdense M CA. Paranasal Sinuses and Mastoids: There is trace mucosal thickening of the paranasal sinuses. The masto id air cells are clear. Orbits: The orbital contents are grossly unremarkable. There are punctate densities along the periphe ral left globe which may be related to postsurgical changes. Bones: No acute osseous abnormalities are identified. Soft Tissues: No focal soft tissue abnormalities are identified. IMPRESSION: 1. There is no evidence of acute intracranial pathology. 2. 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 3. Subtle area of decreased attenuation within the right frontal lobe most consistent with age indete rminate ischemic changes. These critical findings were discussed with Dr. Khan on 05/10/2021 at 5:38 AM central time. Electronically signed by: Izabela Miner DO 05/10/2021 5:41 AM CERTIFIED SURGICAL TECHNICIAN Due to temporary technical issues with the PACS/Fluency reporting system, reports are being signed by the in house radiologist without review as a courtesy to ensure prompt reporting. The interpreting r adiologist is fully responsible for the content of the report.
== END 2021-05-10 09:29 | disposition short-term general hospital (02) ==
LOC: ER 05:11
DX: I63.9 Cerebral infarction, unspecified (principal); R29.711 NIHSS score 11; Z20.822 Contact with and (suspected) exposure to COVID-19
CPT/HCPCS: 92977; 93005; 85025; 80048; 36415; 85610; 85730; 81003; 84484; 70496; 70498; 70450; 71045; 51702; 99291; 99292; 96365; U0003; Q9967; J2997

== ENCOUNTER 2021-10-15 15:16 | Emergency (ER) | payer OTHER ==
--- OUTSIDE RECORDS SUMMARY | 2021-10-15 15:20 | XMS REPORT | Continuity of Care Document ---
:1940 Author Organization [facility] t Address [address] [place] [address] [address] [place] [address] Care Team Providers Name Role Phone ABRIL WILLS Primary Care Physician Unavailable [id number] Attending Clinician Unavailable Andre Attending Clinician Unavailable Doctor Unassigned, Marilyn Attending Clinician Unavailable ABRIL WILLS Attending Clinician Unavailable Andria Suggs MD Attending Clinician ANDRIA SUGGS Attending Clinician Unavailable ANDRIA SUGGS Attending Clinician Unavailable BARBRA Attending Clinician Unavailable Leandro Julien Attending Clinician Unavailable CHILO Attending Clinician Unavailable Driss AVENDANO Attending Clinician Unavailable [id number] Admitting Clinician Unavailable Candace Julien Admitting Clinician Unavailable SUSANNAH CEJA Admitting Clinician Unavailable Payers Payer Name Policy Type Policy Number Effective Date Expiration Date S samir [facility] [id number] [employer] [id number] 2020 00:00:00 Problems Condition Condition Condition Status Onset Resolution Last Treating Co mments Source Name Details Category Date Date Treatment Clinician Date No known No known Disease NPI:1 83 active active [id number] problems problems Body mass Body mass Problem Active NPI :174 index index [id number] (BMI) of (BMI) of 26.0 to 26.0 to 26.9 in 26.9 in adult adult Cardiac Cardiac Problem Active NPI:174 arrhythmia arrhythmia , , unspecifie unspecifie d cardiac d cardiac arrhythmia arrhythmia type type Overweight Overweight Problem Active N PI:831 [id number] High blood High blood Problem Active N PI:174 pressure pressure [id number] 9 Elevated Elevated Problem Active NPI:1 74 [place] without [address] diagnosis diagnosis of of hypertensi hypertensi on on Abnormal Abnormal Problem Active NPI:1 74 CBC CBC [id number] Allergies, Adverse Reactions, Alerts Allergy Allergy Status Severity Reaction(s) Onset Inactive Treating Comm ents Source Name Type Date Date Clinician NO KNOWN Drug Active NPI:183 ALLERGIE Class [id number] S NO KNOWN Allergy Active NPI:118 ALLERGIE [id number] S Social History Social Habit Start Date Stop Date Quantity Comments Source History SDOH NPI:[id number] Alcohol Comment History SDOH NPI:[id number] Alcohol Std Drinks History SDOH NPI:[id number] 81 Alcohol Binge Exposure to 2021-08-23 2021-09-22 Not sure NPI:[id number] 1 SARS-CoV-2 (event) 00:00:00 14:29:00 Alcohol intake 2021-09-22 2021-09-22 Lifetime NPI:[id number] 00:00:00 00:00:00 non-drinker (finding) Tobacco use and 2020-08-10 2020-08-10 Never used NPI:[id number] 52388 exposure 00:00:00 00:00:00 History SDOH 2020-08-10 2020-08-10 1 NPI:[id number] 81 Alcohol Frequency 00:00:00 00:00:00 Sex [birth year] At [birth year] NPI:[id number] 00:00:00 00:00:00 Smoking Status Start Date Stop Date Source Never smoker Medications Ordered Filled Start Stop Current Ordering Indication Dosage Frequency Signature Comments Components Source Medication Medication Date Date Medication? Clinician (SIG) Name Name amLODIPine Yes [id number] 5mg Take 1 N PI:183 5 mg tablet 4-29 tablet by [id number] 00:00: mouth 00 daily. atorvastati Yes 40mg Take 1 NPI: 183 n 40 mg 4-12 tablet by [id number] tablet 00:00: mouth at 00 bedtime. atorvastati 0 Yes 40mg Take 1 NPI: 183 n 40 mg 4-07 tablet by [id number] tablet 00:00: mouth 00 every evening. meloxicam 2021- No 7.5mg Take 7.5 [employer]IEF [employer] OFFICER I:183 7.5 mg 4-06 04-06 mg by [id number] tablet 13:35: 00:00 mouth 04 :00 daily. meloxicam 2021- No 7.5mg Take 7.5 [employer] OFFICER I:183 7.5 mg 09-15- mg by [id number] tablet 13:35: 00:00 mouth 04 :00 daily. ketotifen 2021-2021- No 1[drp] 1 Drop as NPI:183 0.025 % 09-15 needed. [id number] (0.035 %) 13:34: 00:00 ophthalmic 36 :00 solution ketotifen 2021-2021- No 1[drp] 1 Drop as NPI:183 0.025 % 09-15 needed. [id number] (0.035 %) 13:34: 00:00 ophthalmic 36 :00 solution amLODIPine 2021- No [id number] 5mg Take 1 NPI:183 5 mg tablet 09-15 tablet by [id number] 00:00: 00:00 mouth 00 :00 daily. atorvastati 2021-0 2021- No 40mg Take 1 NPI :183 n 40 mg 09-15 tablet by [id number] 1 tablet 00:00: 00:00 mouth at 00 :00 bedtime. atorvastati 2021-0 2021- No 40mg Take 1 NPI :183 n 40 mg 09-15 tablet by [id number] 1 tablet 00:00: 00:00 mouth at 00 :00 bedtime. ATORVASTATI 2021-0 2- No TAKE 1 NPI :183 N 40 mg 08-18- TABLET BY [id number] 1 tablet 00:00: 00:00 MOUTH 00 :00 EVERY DAY IN THE EVENING ATORVASTATI 2-0 2- No TAKE 1 NPI :183 N 40 mg 08-18- TABLET BY [id number] 1 tablet 00:00: 00:00 MOUTH 00 :00 EVERY DAY IN THE EVENING clopidogreL 2022-0 Yes 75mg Take 1 NPI: 183 75 mg 1-19 tablet by [id number] tablet 00:00: mouth 00 daily. clopidogreL 2022-0 Yes 75mg Take 1 NPI: 183 75 mg 1-19 tablet by [id number] tablet 00:00: mouth 00 daily. clopidogreL 2022-0 Yes 75mg Take 1 NPI: 183 75 mg 1-19 tablet by [id number] tablet 00:00: mouth 00 daily. CITALOPRAM 2021- No TAKE 1 NPI: 183 10 mg -18 -06 TABLET BY [id number] tablet 00:00: 00:00 MOUTH 00 :00 EVERY DAY CITALOPRAM 2021- No TAKE 1 NPI: 183 10 mg -18 - TABLET BY [id number] tablet 00:00: 00:00 MOUTH 00 :00 EVERY DAY aspirin 81 0 Yes 81mg Take 1 NPI:1 83 mg EC 1-12 tablet by [id number] tablet 00:00: mouth 00 daily. aspirin 81 0 Yes 81mg Take 1 NPI:1 83 mg EC 1-12 tablet by [id number] tablet 00:00: mouth 00 daily. aspirin 81 0 Yes 81mg Take 1 NPI:1 83 mg EC 1-12 tablet by [id number] tablet 00:00: mouth 00 daily. cyanocobala Yes Take by CHIEF [employer] OFFICER I:183 min, 1-03 mouth [id number] vitamin 14:47: daily. B-12, 48 (VITAMIN B-12 ORAL) cyanocobala Yes Take by CH[employer]F CONTRACT OFFICER I:183 min, 1-03 mouth [id number] vitamin 14:47: daily. B-12, 48 (VITAMIN B-12 ORAL) cyanocobala Yes Take by CHIEF CONTRACT OFFICER I:183 min, 1-03 mouth [id number] vitamin 14:47: daily. B-12, 48 (VITAMIN B-12 ORAL) amLODIPine 2020-06- No [id number] 5mg Take 1 NPI:183 5 mg tablet - tablet by 13 [id number] 00:00: 00:00 mouth 00 :00 daily. amLODIPine 2020-06- No [id number] 5mg Take 1 NPI:183 5 mg tablet - tablet by 13 [id number] 00:00: 00:00 mouth 00 :00 daily. methylpheni 2020-06- No NPI:1 83 date HCl 5 2-05 10-06 [id number] mg tablet 00:00: 00:00 00 :00 methylpheni 2020-06- No NPI:1 83 date HCl 5 2-26 04-06 [id number] mg tablet 00:00: 00:00 00 :00 pantoprazol 2020-06- No 40mg 40 mg NPI: 183 e 40 mg EC 08-05 daily. [id number] 1 tablet 00:00: 00:00 00 :00 loratadine 2020-06- No NPI:18 3 10 mg 08-05 [id number] tablet 00:00: 00:00 00 :00 pantoprazol 2020-06- No 40mg 40 mg NPI: 183 e 40 mg EC 08-05 daily. [id number] 1 tablet 00:00: 00:00 00 :00 loratadine 2020-06- No NPI:18 3 10 mg 08-05 [id number] tablet 00:00: 00:00 00 :00 Magnesium Magnesium Yes Marcella not NPI: 174 [place] defined [id number] Zinc Zinc Yes Marcella not NPI:174 [place] defined [id number] Vitamin D Vitamin D Yes Marcella not NPI: 174 [place] defined [id number] Immunizations Ordered Immunization Filled Immunization Date Status Commen ts Source Name Name SARS-COV-2 COVID-19 2020-08-29 Completed NPI:1 [id number] PFIZER VACCINE 00:00:00 SARS-COV-2 COVID-19 2020-08-29 Completed NPI:1 [id number] PFIZER VACCINE 00:00:00 SARS-COV-2 COVID-19 2020-08-29 Completed NPI:1 [id number] PFIZER VACCINE 00:00:00 SARS-COV-2 COVID-19 2020-08-08 Completed NPI:1 [id number] PFIZER VACCINE 00:00:00 SARS-COV-2 COVID-19 2020-08-08 Completed NPI:1 [id number] PFIZER VACCINE 00:00:00 SARS-COV-2 COVID-19 2020-08-08 Completed NPI:1 [id number] PFIZER VACCINE 00:00:00 Vital Signs Vital Name Observation Time Observation Value Comments Source Systolic blood pressure 2021-09-10 19:49:00 118 mm[Hg] Diastolic blood 2021-09-10 19:49:00 78 mm[Hg] NPI:1 [id number] pressure Heart rate 2021-09-10 19:49:00 76 /min NPI:1831 [id number] Body height 2021-09-10 19:49:00 172.7 cm NPI:1831 [id number] Body weight 2021-09-10 19:49:00 81.194 kg NPI:1831 [id number] BMI 2021-09-10 19:49:00 27.22 kg/m2 NPI:1830 [id number] Oxygen saturation in 2021-09-10 19:49:00 96 /min Arterial blood by Pulse oximetry HEIGHT 2021-05-12 11:51:00 172.7 cm WEIGHT 2021-05-10 10:45:00 76.975 kg HEIGHT 2021-05-12 11:51:00 172.7 cm WEIGHT 2021-05-10 10:45:00 76.975 kg Procedures This patient has no known procedures. Encounters Start End Encounter Admission Attending Care Care Encounter Source Date/Time Date/Time Type Type Clinicians Facility Department ID 2021-07-08 Outpatient [id number] [facility] REF [id number] [facility] 13:25:40 1203 2021-07-07 Outpatient Andre, [facility] NPI:174 11:36:50 Marcella [id number] 2021-07-07 Outpatient Andre, [facility] NPI:174 11:07:42 Marcella [id number] 2021-07-07 Outpatient Andre, ST[facility] NPI:174 11:07:22 Marcella [id number] 2021-10-08 2021-10-08 Patient Doctor [facility] [id number] NPI:183 00:00:00 00:00:00 Secure Msg Unassigned, BECK [id number] [place] ERICK [id number] GARRET [id number] NAL 059 [facility] 2021-09-17 2021-09-17 Outpatient [facility] [id number] [place] 00:00:00 00:00:[address] 2021-09-15 2021-09-15 Outpatient Tahria WILLS [facility] [id number] NPI:183 14:00:00 23:59:00 TIMA [id number] 1 2021-09-10 2021-09-10 Office Ifeanyi [facility] [id number] NPI:183 14:40:00 15:32:11 Visit Eliseo [facility] [id number] [place] 4.2.7.2.686 JON?BLEA [id number] [place] [id number] [facility] 2021-09-10 2021-09-10 Outpatient ELISEO KRUEGER [facility] [id number] NPI:183 14:40:00 15:32:11 ELISEO SUGGS [id number] 6436-01-21 2021-07-02 Outpatient [facility] [id number] [place] 00:00:00 00:00:[address] 2021-06-10 2021-06-10 Outpatient ELENA BELLE [facility] [id number] [place] 00:00:00 00:00:[address] 2021-05-17 2021-06-04 Inpatient 3 Marc-Sanc [facility] CVA [id number] [facility] 18:50:00 12:25:00 Chi mantilla 2021-05-10 2021-05-17 Inpatient ER CHILO [facility] Neuro ICU 20 [id number] [facility] 10:06:00 18:27:00 YENNI 2020-01-21 2020-01-21 Outpatient [facility] [id number] NPI:174 13:00:00 13:00:[address] Medicine 2019-09-05 2019-09-05 Outpatient [facility] [id number] NPI:174 08:08:00 08:08:[address] Medicine Medicine 2019-07-25 2019-07-25 Outpatient [facility] [id number] NPI:174 13:45:00 13:45:[address] Results Test Description Test Time Test Comments Results Result Comments Source SARS-COV2/RT-PCR ([facility]) 2021-05-17 10:29:20 Test Item Value Reference Range Interpretation Comme nts SARS-COV2/RT-PCR (test code = 8051272) Negative Not Detected, N egative, See external report for linked test SARS-COV-2 PERFORMING LAB (test code = [facility] 6299442) Negative result for this test determines that SARS-CoV-2 RNA was not present in the specimen above the Limit of Detection (LOD). However, Negative results do not preclude SARS-CoV-2 infection and should not be used as the sole basis for treatment or patient management decisions. Negative results mustbe combined with clinical observations, patient history, and epidemiological information. A false negative result may occur if a specimen is improperly collected, transported or handled. A false negative result should be considered if patient's recent exposures or clinical presentation indicate that COVID-19 (SARS-CoV-2) is likely and diagnostic tests for other causes of illness are negative. Re-testing should be considered in cases of suspected false negatives.The limit of detection for this assay is 800 copies/mL.This SARS CoV-2 test is a real-time RT-PCR test intended for the qualitative detection of nucleic acid from SARS-CoV-2 in a nasopharyngeal swab specimen collected from individuals suspected of COVID-19 by their healthcare provider.This test has not been Food and Drug Administration (FDA) cleared or approved. This is a modified version of an approved Emergency Use Authorization (EUA) and is in the process of review by the FDA. Once authorized by the FDA, the issued EUA will be effective until the declaration that circumstances exist justifying the authorization of the emergency use of in vitro diagnostic tests for detection and/or diagnosis of COVID-19 is terminated under Section 564(b)(2) of the Act or the EUA is revoked under Section 564(g) of the Act.Fact Sheet for Healthcare Providers:https://www.Clinverseidel.com/sites/default/files/product/documents/Fact_Shee u_IU_Dgdhbowxx_Tmzn_PBCO-KmD-1.pdfFact Sheet for Healthcare Patients:https://www.[employer]Gooroo.com/sites/default/files/product/ documents/Hvtg_Jnodu_Yafnzpqx_Idrg_GUOJ-DkW-2.pdfPerforming Laboratory:[place] [id number], [place] [address]JBDES METABOLIC PANEL 2021-05-17 05:11:42 Test Item Value Reference Range Interpretation Comments SODIUM (BEAKER) 140 meq/L 136-145 (test code = 381) POTASSIUM (BEAKER) 3.9 meq/L 3.5-5.1 (test code = 379) CHLORIDE (BEAKER) 106 meq/L 98-107 (test code = 382) CO2 (BEAKER) (test 25 meq/L 22-29 code = 355) BLOOD UREA NITROGEN 15 mg/dL 7-21 (BEAKER) (test code = 354) CREATININE (BEAKER) 0.96 mg/dL 0.57-1.25 (test code = 358) GLUCOSE RANDOM 104 mg/dL 70-105 (BEAKER) (test code = 652) CALCIUM (BEAKER) 8.4 mg/dL 8.4-10.2 (test code = 697) EGFR (BEAKER) (test 76 mL/min/1.73 ESTIMA LU GFR IS code = 1092) sq m NOT ACCURATE CREATININE CLEARANCE IN PREDICTING GLOMERULAR FILTRATION RATE . ESTIMATED GFR I S NOT APPLICABLE FOR DIALYSIS PATIEN TS. Skin Carver ID - EDDIE MPROTHROMBIN [id number] 05:11:07 Test Item Value Reference Range Interpretation Comments PROTIME (BEAKER) 13.4 seconds 11.9-14.2 (test code = 759) INR (BEAKER) (test 1.04 See_Comment [Automat ed message] code = 370) The system [employer] generated this result transmitted ref erence range: <=5.90. The reference range was not used to int erpret this result as normal/abnormal . RECOMMENDED COUMADIN/WARFARIN INR THERAPY RANGESSTANDARD DOSE: 2.0 - 3.0 Includes: PROPHYLAXIS forvenous thrombosis, systemic embolization; TREATMENT for venous thrombosis and/or pulmonary embolus.HIGH RISK: Target INR is 2.5-3.5 for patients with mechanical heart valves.CBC (HEMOGRAM ONLY)2021-05-17 04:50:52 Test Item Value Reference Range Interpretation Comments WHITE BLOOD CELL COUNT (BEAKER) 7.7 K/ L 3.5-10.5 (test code = 775) RED BLOOD CELL COUNT (BEAKER) 3.67 M/ L 4.63-6.08 L (test code = 761) HEMOGLOBIN (BEAKER) (test code = 12.5 GM/DL 13.7-17.5 L 410) HEMATOCRIT (BEAKER) (test code = 36.7 % 40.1-51.0 L 411) MEAN CORPUSCULAR VOLUME (BEAKER) 100.0 fL 79.0-92.2 H (test code = 753) MEAN CORPUSCULAR HEMOGLOBIN 34.1 pg 25.7-32.2 H (BEAKER) (test code = 751) MEAN CORPUSCULAR HEMOGLOBIN CONC 34.1 GM/DL 32.3-36.5 (BEAKER) (test code = 752) RED CELL DISTRIBUTION WIDTH 12.4 % 11.6-14.4 (BEAKER) (test code = 412) PLATELET COUNT (BEAKER) (test 280 K/CU MM 150-450 code = 756) MEAN PLATELET VOLUME (BEAKER) 9.9 fL 9.4-12.4 (test code = 754) NUCLEATED RED BLOOD CELLS 0 /100 WBC 0-0 (BEAKER) (test code = 413) POCT-GLUCOSE [id number] 18:06:34 Test Item Value Reference Range Interpretation Comments POC-GLUCOSE METER 101 mg/dL 70-110 : TESTED A T [facility] 6720 (BEAKER) (test code = [facility], 153) 487[address]: Skin Carver/Techni elizabeth ID = [id number] for Bl kiersten, Rufino POCT-GLUCOSE [id number] 12:14:02 Test Item Value Reference Range Interpretation Comments POC-GLUCOSE METER 99 mg/dL 70-110 : TESTED A T [facility] 6720 (BEAKER) (test code = [facility], 153) 04144: Skin Carver/Techni elizabeth ID = [id number] for Won brant, Rufino POCT-GLUCOSE [id number] 18:02:29 Test Item Value Reference Range Interpretation Comments POC-GLUCOSE METER 130 mg/dL 70-110 H : TESTED A T [facility] 6720 (BEAKER) (test code = [facility], 153) 89090: Skin Carver/Techni elizabeth ID = [id number] for AK DAVIDU, EMILEE POCT-GLUCOSE [id number] 12:53:38 Test Item Value Reference Range Interpretation Comments POC-GLUCOSE METER 100 mg/dL 70-110 : TESTED A T [facility] 6720 (BEAKER) (test code = [facility] Tahira [facility], 1538) 35604: Skin Carver/Techni elizabeth ID = [id number] for MARY HERNANDEZUEMILEE POCT-GLUCOSE [id number] 08:26:31 Test Item Value Reference Range Interpretation Comments POC-GLUCOSE METER 91 mg/dL 70-110 : TESTED A T [facility] 6720 (BEAKER) (test [facility], 1538) 03514: Skin Carver/Techni elizabeth ID = [id number] for EMILEE VICENTE [id number] 05:47:02 Test Item Value Reference Range Interpretation Comments MAGNESIUM (BEAKER) (test code = 1.9 mg/dL 1.6-2.6 627) Skin Carver ID - [id number] 05:47:02 Test Item Value Reference Range Interpretation Comments PHOSPHORUS (BEAKER) (test code = 3.3 mg/dL 2.3-4.7 604) Skin Carver ID - ADMINBASIC METABOLIC [id number] 05:47:01 Test Item Value Reference Range Interpretation Comments SODIUM (BEAKER) 139 meq/L 136-145 (test code = 381) POTASSIUM (BEAKER) 4.0 meq/L 3.5-5.1 (test code = 379) CHLORIDE (BEAKER) 108 meq/L 98-107 H (test code = 382) CO2 (BEAKER) (test 24 meq/L 22-29 code = 355) BLOOD UREA NITROGEN 13 mg/dL 7-21 (BEAKER) (test code = 354) CREATININE (BEAKER) 0.97 mg/dL 0.57-1.25 (test code = 358) GLUCOSE RANDOM 98 mg/dL 70-105 (BEAKER) (test code = 652) CALCIUM (BEAKER) 8.2 mg/dL 8.4-10.2 L (test code = 697) EGFR (BEAKER) (test 75 mL/min/1.73 ESTIMA LU GFR IS code = 1092) sq m NOT ACCURATE CREATININE CLEARANCE IN PREDICTING GLOMERULAR FILTRATION RATE . ESTIMATED GFR I S NOT APPLICABLE FOR DIALYSIS PATIEN TS. Skin Carver ID - ADMINCBC W/PLT COUNT & AUTO [id number] 05:34:49 Test Item Value Reference Range Interpretation Comments WHITE BLOOD CELL COUNT (BEAKER) 7.3 K/ L 3.5-10.5 (test code = 775) RED BLOOD CELL COUNT (BEAKER) 3.46 M/ L 4.63-6.08 L (test code = 761) HEMOGLOBIN (BEAKER) (test code = 11.8 GM/DL 13.7-17.5 L 410) HEMATOCRIT (BEAKER) (test code = 35.2 % 40.1-51.0 L 411) MEAN CORPUSCULAR VOLUME (BEAKER) 101.7 fL 79.0-92.2 H (test code = 753) MEAN CORPUSCULAR HEMOGLOBIN 34.1 pg 25.7-32.2 H (BEAKER) (test code = 751) MEAN CORPUSCULAR HEMOGLOBIN CONC 33.5 GM/DL 32.3-36.5 (BEAKER) (test code = 752) RED CELL DISTRIBUTION WIDTH 12.6 % 11.6-14.4 (BEAKER) (test code = 412) PLATELET COUNT (BEAKER) (test 269 K/CU MM 150-450 code = 756) MEAN PLATELET VOLUME (BEAKER) 9.9 fL 9.4-12.4 (test code = 754) NUCLEATED RED BLOOD CELLS 0 /100 WBC 0-0 (BEAKER) (test code = 413) NEUTROPHILS RELATIVE PERCENT 56 % (BEAKER) (test code = 429) LYMPHOCYTES RELATIVE PERCENT 29 % (BEAKER) (test code = 430) MONOCYTES RELATIVE PERCENT 9 % (BEAKER) (test code = 431) EOSINOPHILS RELATIVE PERCENT 6 % (BEAKER) (test code = 432) BASOPHILS RELATIVE PERCENT 1 % (BEAKER) (test code = 437) NEUTROPHILS ABSOLUTE COUNT 4.03 K/ L 1.78-5.38 (BEAKER) (test code = 670) LYMPHOCYTES ABSOLUTE COUNT 2.07 K/ L 1.32-3.57 (BEAKER) (test code = 414) MONOCYTES ABSOLUTE COUNT (BEAKER) 0.63 K/ L 0.30-0.82 (test code = 415) EOSINOPHILS ABSOLUTE COUNT 0.45 K/ L 0.04-0.54 (BEAKER) (test code = 416) BASOPHILS ABSOLUTE COUNT (BEAKER) 0.05 K/ L 0.01-0.08 (test code = 417) IMMATURE GRANULOCYTES-RELATIVE 0 % 0-1 PERCENT (BEAKER) (test code = 2801) POCT-GLUCOSE [id number] 22:58:58 Test Item Value Reference Range Interpretation Comments POC-GLUCOSE METER 102 mg/dL 70-110 : TESTED A T [facility] 6720 (JE) (test code = [place], 1538) [address]: Skin Carver/Techni elizabeth ID = [id number] for AMIRA PULIDO CTA, CHEST, ABDOMEN - PELVIS, FOR [id number] 18:05:00Unlisted Reason for Exam - Click Yes and Enter Reason Below->Yesdilated aortic root and ascendingaorta on echoUnlisted Reason for Exam->dilated aortic root and ascending aorta on echo [facility] 1940 Sex: MAddendum BeginsREPORT STATUS:A I have reviewed the CT images for this study and I concur with the nonvascular imaging findings as dictated. In addition, there is a 1 cm densely sclerotic lesion in the posterior lateral left T6 vertebral body, of uncertain clinical significance. Bone scan may be useful for further evaluation. There is also nonspecific perinephric fat stranding present, right and left. There is no definite obstruction. Multiple pelvic phleboliths are noted. No visible renal or ureteral calculi Signed: Torrie Patrick Verified Date/Time: 05/14/2021 18:05:25 Reading Location: [facility] Diagnostic [facility] Reading Room - [facility] 1.588.12Addendum EndsFINAL REPORT CTA Aorta - Chest, Abdomen, and Pelvis: 05/12/2021 2:21 AM. Comparison:None available. 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 Evaluated for further treatment options. Indication: There is clinical need to define thoracic and abdominal aortic anatomy, as well as to assess vascular access for possible peripheral cannulation. There ok clinical concern of aortic aneurysm. This study is performed in an attempt to avoid an invasive procedure. TECHNIQUE: Spiral acquisition before and during intravenous contrast administration using a ( Siemens SOMATOM Force scanner). Images were obtained before and during the dynamic passage of intravenous contrast material. Multi-planar 3-D volume- rendering reconstruction was performed using an independent workstation interactively by the interpreting physician as well as the 3-D specialist for optimal visualization of the thoracoabdominal aorta, the pelvic arteries as well as its proximal branches. Please refer to the contrast sheet scanned in the EPIC system for the amount and route of contrast given. This exam was performed according to our departmental dose-optimisation programme, which includes automated exposure control, adjustment of the mA and/or kV according to patient size and/or useof iterative reconstruction technique. Dose modulation, iterative reconstruction, and/or weight based adjustment of the mA/kV was utilized to reduce the radiation dose to as low as reasonably achievable. RESULT: Potential study limitations: None. CHEST: The visualized thyroid gland appears unremarkable. The chest wall is unremarkable. The mediastinum is unremarkable. There are small mediastinal lymph nodes, however there is no significant adenopathy noted in the axillae, mediastinum, and sandro. The pericardium appears normal. The pulmonary arteries are normal. The lung windows: Reveal bibasal at electasis and a 1.9 cm parenchymal cyst noted in the right lower lobe (image 126). The central airways are patent. There is no abnormal pulmonary parenchymal mass, infiltrate, or pleural effusion. Thecardiac chambers have normal atrioventricular and ventriculoarterial concordance, and systemic and pu lmonary venous return. The cardiac chamber sizes are normal. The coronary arteries have normal origins and courses. There are mild coronary calcifications identified, though this study was not optimized for coronary artery evaluation. VASCULAR WITH ADVANCED 3-D OFFLINE POST-PROCESSING:The aortic valveis trileaflet and is free from calcifications. The aortic root is normal in dimension. The sinotubular junction is partially effaced, measuring 3.6 cm. Mild ectasia of the midascending thoracic aortameasuring 4.3 x 4.3 cm, otherwise the remaining thoracic aorta is normal in course, caliber and contour. The arch vessel branching pattern demonstrates a common trunk of the innominate and left common carotid artery. The imaged arch branch vessels are patent proximally. Of note: there is no calcification of the anterior ascending aorta. The descending thoracic aorta: Normal in course, caliber and contour. The abdominal aorta: Normal in course, caliber and contour. The celiac artery, SMA, and ALPESH are patent. The bilateral single renal arteries are patent. The pelvic arteries are tortuous, butotherwise normal in caliber and contour. The common femoral and superficial femoral arteries are normal in course, caliber and contour. There is no acute aortic pathology, such as dissection, intramural hematoma, or contained rupture. Ice Cream Maker dimensions of the thoracic aorta are as follows:*3.6 cm at the sinuses of Valsalva (measured [id number]-[id number])*4.3 x 4.3 cm in the mid-ascending aorta*3.7 cm at the distal ascending aorta*3.2 cm at the mid-transverse arch*2.8 cm at the proximal descending thoracic aorta*2.7 cm at the diaphragmatic hiatus Ice Cream Maker dimensions of the abdominal aorta are as follows: *2.7 cm at the supra-mesenteric segment*2.5 cm at the mesenteric segment*2.0 cmat the renal segment*1.9 cm at the infrarenal segment*1.8 cm at the aortic bifurcation ABDOMEN-PELVIS:In the abdomen, the liver and spleen appears unremarkable. No abnormal enhancing structure is identified. The gallbladder and pancreas appears grossly normal. The adrenal glands are not enlarged. The kidneys are normal in size and shape. No hydronephrosis or perirenal fluid collection is identified. Bowel is not well assessed by CT angiography as enteric contrast is not given. No obvious bowel dilation is seen. There is no significant retroperitoneal adenopathy. No free fluid or free air is identified. The visualized pelvic organs appear unremarkable. BONES:Degenerative changes involving the thoracic and lumbar spine. CONCLUSIONS: 1. Mild ectasia of the midascending thoracic aorta measuring 4.3 x 4.3 cm, otherwise thoraco-abdominal aorta is normal in course, contour, and calibre. Thereis no evidence of acute aortic pathology, specifically, there is no dissection, intramural hematoma,or contained rupture. Quantitative dimension of the aorta are as described above. 2. There are tworight and two left renal arteries, that are widely patent. Patent mesenteric arteries. An addendumwill be dictated regarding the non-vascular findings by the Aluminizer Radiologist. Signed: Jerome Joneseport Verified Date/Time: 05/12/2021 18:32:07 POCT- GLUCOSE [id number] 16:50:24 Test Item Value Reference Range Interpretation Comments POC-GLUCOSE METER 106 mg/dL 70-110 : TESTED A T [facility] 6720 (BEAKER) (test code = [facility], 1538) 69051: Skin Carver/Techni elizabeth ID = [id number] for Ar mstrong, Latesa POCT-GLUCOSE [id number] 11:23:11 Test Item Value Reference Range Interpretation Comments POC-GLUCOSE METER 119 mg/dL 70-110 H : TESTED A T [facility] 6720 (BEAKER) (test code = [facility], 1538) 25956: Skin Carver/Techni elizabeth ID = [id number] for Ar mstrong, Latesa POCT-GLUCOSE [id number] 07:32:41 Test Item Value Reference Range Interpretation Comments POC-GLUCOSE METER 96 mg/dL 70-110 : TESTED A T [facility] 6720 (BEAKER) (test code = [facility], 1538) 97630: Skin Carver/Techni elizabeth ID = [id number] for Nabor shepherd, Latesa [id number] 04:07:27 Test Item Value Reference Range Interpretation Comments MAGNESIUM (BEAKER) (test code = 1.8 mg/dL 1.6-2.6 627) Skin Carver ID - QUIQUE [id number] 04:07:27 Test Item Value Reference Range Interpretation Comments PHOSPHORUS (BEAKER) (test code = 2.8 mg/dL 2.3-4.7 604) Skin Carver ID - QUIQUE GBASIC METABOLIC [id number] 04:07:26 Test Item Value Reference Range Interpretation Comments SODIUM (BEAKER) 140 meq/L 136-145 (test code = 381) POTASSIUM (BEAKER) 4.2 meq/L 3.5-5.1 (test code = 379) CHLORIDE (BEAKER) 109 meq/L 98-107 H (test code = 382) CO2 (BEAKER) (test 22 meq/L 22-29 code = 355) BLOOD UREA NITROGEN 17 mg/dL 7-21 (BEAKER) (test code = 354) CREATININE (BEAKER) 1.02 mg/dL 0.57-1.25 (test code = 358) GLUCOSE RANDOM 116 mg/dL 70-105 H (BEAKER) (test code = 652) CALCIUM (BEAKER) 8.5 mg/dL 8.4-10.2 (test code = 697) EGFR (BEAKER) (test 70 mL/min/1.73 ESTIMA LU GFR IS code = 1092) sq m NOT ACCURATE CREATININE CLEARANCE IN PREDICTING GLOMERULAR FILTRATION RATE . ESTIMATED GFR I S NOT APPLICABLE FOR DIALYSIS PATIEN TS. Skin Carver ID - QUIQUE GCBC W/PLT COUNT & AUTO [id number] 03:42:03 Test Item Value Reference Range Interpretation Comments WHITE BLOOD CELL COUNT (BEAKER) 9.0 K/ L 3.5-10.5 (test code = 775) RED BLOOD CELL COUNT (BEAKER) 3.59 M/ L 4.63-6.08 L (test code = 761) HEMOGLOBIN (BEAKER) (test code = 12.2 GM/DL 13.7-17.5 L 410) HEMATOCRIT (BEAKER) (test code = 36.5 % 40.1-51.0 L 411) MEAN CORPUSCULAR VOLUME (BEAKER) 101.7 fL 79.0-92.2 H (test code = 753) MEAN CORPUSCULAR HEMOGLOBIN 34.0 pg 25.7-32.2 H (BEAKER) (test code = 751) MEAN CORPUSCULAR HEMOGLOBIN CONC 33.4 GM/DL 32.3-36.5 (BEAKER) (test code = 752) RED CELL DISTRIBUTION WIDTH 12.5 % 11.6-14.4 (BEAKER) (test code = 412) PLATELET COUNT (BEAKER) (test 262 K/CU MM 150-450 code = 756) MEAN PLATELET VOLUME (BEAKER) 9.5 fL 9.4-12.4 (test code = 754) NUCLEATED RED BLOOD CELLS 0 /100 WBC 0-0 (BEAKER) (test code = 413) NEUTROPHILS RELATIVE PERCENT 55 % (BEAKER) (test code = 429) LYMPHOCYTES RELATIVE PERCENT 29 % (BEAKER) (test code = 430) MONOCYTES RELATIVE PERCENT 10 % (BEAKER) (test code = 431) EOSINOPHILS RELATIVE PERCENT 6 % (BEAKER) (test code = 432) BASOPHILS RELATIVE PERCENT 0 % (BEAKER) (test code = 437) NEUTROPHILS ABSOLUTE COUNT 4.95 K/ L 1.78-5.38 (BEAKER) (test code = 670) LYMPHOCYTES ABSOLUTE COUNT 2.64 K/ L 1.32-3.57 (BEAKER) (test code = 414) MONOCYTES ABSOLUTE COUNT (BEAKER) 0.86 K/ L 0.30-0.82 H (test code = 415) EOSINOPHILS ABSOLUTE COUNT 0.52 K/ L 0.04-0.54 (BEAKER) (test code = 416) BASOPHILS ABSOLUTE COUNT (BEAKER) 0.03 K/ L 0.01-0.08 (test code = 417) IMMATURE GRANULOCYTES-RELATIVE 0 % 0-1 PERCENT (BEAKER) (test code = 2801) POCT-GLUCOSE [id number] 02:54:40 Test Item Value Reference Range Interpretation Comments POC-GLUCOSE METER 77 mg/dL 70-110 : TESTED A T [facility] 6720 (BEAKER) (test code = [facility], 1538) 30492: Skin Carver/Techni elizabeth ID = [id number] for AMIRA OBRIEN POCT-GLUCOSE [id number] 11:08:38 Test Item Value Reference Range Interpretation Comments POC-GLUCOSE METER 99 mg/dL 70-110 : TESTED A T [facility] 6720 (BEAKER) (test code = [facility], 1538) 15342: Skin Carver/Techni elizabeth ID = [id number] for Shireen Tracey POCT-GLUCOSE [id number] 06:23:59 Test Item Value Reference Range Interpretation Comments POC-GLUCOSE METER 119 mg/dL 70-110 H : TESTED A T [facility] 6720 (BEAKER) (test code = [facility], 1538) 19963: Skin Carver/Techni elizabeth ID = [id number] for ANASTASIYA COLE [id number] 03:48:58 Test Item Value Reference Range Interpretation Comments MAGNESIUM (BEAKER) (test code = 2.0 mg/dL 1.6-2.6 627) Skin Carver ID - EDDIE [id number] 03:48:58 Test Item Value Reference Range Interpretation Comments PHOSPHORUS (BEAKER) (test code = 3.0 mg/dL 2.3-4.7 604) Skin Carver ID - EDDIE MBASIC METABOLIC [id number] 03:48:57 Test Item Value Reference Range Interpretation Comments SODIUM (BEAKER) 139 meq/L 136-145 (test code = 381) POTASSIUM (BEAKER) 3.8 meq/L 3.5-5.1 (test code = 379) CHLORIDE (BEAKER) 108 meq/L 98-107 H (test code = 382) CO2 (BEAKER) (test 22 meq/L 22-29 code = 355) BLOOD UREA NITROGEN 13 mg/dL 7-21 (BEAKER) (test code = 354) CREATININE (BEAKER) 0.84 mg/dL 0.57-1.25 (test code = 358) GLUCOSE RANDOM 107 mg/dL 70-105 H (BEAKER) (test code = 652) CALCIUM (BEAKER) 8.4 mg/dL 8.4-10.2 (test code = 697) EGFR (BEAKER) (test 88 mL/min/1.73 ESTIMA LU GFR IS code = 1092) sq m NOT ACCURATE CREATININE CLEARANCE IN PREDICTING GLOMERULAR FILTRATION RATE . ESTIMATED GFR I S NOT APPLICABLE FOR DIALYSIS PATIEN TS. Skin Carver ID - EDDIE MCBC W/PLT COUNT & AUTO [id number] 03:16:28 Test Item Value Reference Range Interpretation Comments WHITE BLOOD CELL COUNT (BEAKER) 7.9 K/ L 3.5-10.5 (test code = 775) RED BLOOD CELL COUNT (BEAKER) 3.71 M/ L 4.63-6.08 L (test code = 761) HEMOGLOBIN (BEAKER) (test code = 12.6 GM/DL 13.7-17.5 L 410) HEMATOCRIT (BEAKER) (test code = 36.7 % 40.1-51.0 L 411) MEAN CORPUSCULAR VOLUME (BEAKER) 98.9 fL 79.0-92.2 H (test code = 753) MEAN CORPUSCULAR HEMOGLOBIN 34.0 pg 25.7-32.2 H (BEAKER) (test code = 751) MEAN CORPUSCULAR HEMOGLOBIN CONC 34.3 GM/DL 32.3-36.5 (BEAKER) (test code = 752) RED CELL DISTRIBUTION WIDTH 12.5 % 11.6-14.4 (BEAKER) (test code = 412) PLATELET COUNT (BEAKER) (test 283 K/CU MM 150-450 code = 756) MEAN PLATELET VOLUME (BEAKER) 9.4 fL 9.4-12.4 (test code = 754) NUCLEATED RED BLOOD CELLS 0 /100 WBC 0-0 (BEAKER) (test code = 413) NEUTROPHILS RELATIVE PERCENT 53 % (BEAKER) (test code = 429) LYMPHOCYTES RELATIVE PERCENT 31 % (BEAKER) (test code = 430) MONOCYTES RELATIVE PERCENT 10 % (BEAKER) (test code = 431) EOSINOPHILS RELATIVE PERCENT 6 % (BEAKER) (test code = 432) BASOPHILS RELATIVE PERCENT 1 % (BEAKER) (test code = 437) NEUTROPHILS ABSOLUTE COUNT 4.16 K/ L 1.78-5.38 (BEAKER) (test code = 670) LYMPHOCYTES ABSOLUTE COUNT 2.43 K/ L 1.32-3.57 (BEAKER) (test code = 414) MONOCYTES ABSOLUTE COUNT (BEAKER) 0.77 K/ L 0.30-0.82 (test code = 415) EOSINOPHILS ABSOLUTE COUNT 0.48 K/ L 0.04-0.54 (BEAKER) (test code = 416) BASOPHILS ABSOLUTE COUNT (BEAKER) 0.05 K/ L 0.01-0.08 (test code = 417) IMMATURE GRANULOCYTES-RELATIVE 0 % 0-1 PERCENT (BEAKER) (test code = 2801) POCT-GLUCOSE [id number] 21:35:10 Test Item Value Reference Range Interpretation Comments POC-GLUCOSE METER 132 mg/dL 70-110 H : TESTED A T [facility] 6720 (BEAKER) (test code = [facility], 1538) 75022: Skin Carver/Techni elizabeth ID = [id number] for ANASTASIYA COLE POCT-GLUCOSE [id number] 19:11:39 Test Item Value Reference Range Interpretation Comments POC-GLUCOSE METER 82 mg/dL 70-110 : TESTED A T [facility] 6720 (BEAKER) (test code = [facility] Tahira [facility], 1538) 93231: Skin Carver/Techni elizabeth ID = [id number] for TEMO DOSS POCT-GLUCOSE [id number] 15:18:33 Test Item Value Reference Range Interpretation Comments POC-GLUCOSE METER 151 mg/dL 70-110 H : TESTED A T [facility] 6720 (BEAKER) (test code = [facility], 1538) 83648: Skin Carver/Techni elizabeth ID = [id number] for TEMO DUNBAR POCT-GLUCOSE [id number] 06:22:07 Test Item Value Reference Range Interpretation Comments POC-GLUCOSE METER 92 mg/dL 70-110 : TESTED A T [facility] 6720 (BEAKER) (test code = [facility], 1538) 95634: Skin Carver/Techni elizabeth ID = [id number] for ANASTASIYA [place]GROVE BASIC METABOLIC [id number] 03:46:38 Test Item Value Reference Range Interpretation Comments SODIUM (BEAKER) 137 meq/L 136-145 (test code = 381) POTASSIUM (BEAKER) 4.0 meq/L 3.5-5.1 (test code = 379) CHLORIDE (BEAKER) 105 meq/L 98-107 (test code = 382) CO2 (BEAKER) (test 22 meq/L 22-29 code = 355) BLOOD UREA NITROGEN 12 mg/dL 7-21 (BEAKER) (test code = 354) CREATININE (BEAKER) 0.88 mg/dL 0.57-1.25 (test code = 358) GLUCOSE RANDOM 109 mg/dL 70-105 H (BEAKER) (test code = 652) CALCIUM (BEAKER) 8.4 mg/dL 8.4-10.2 (test code = 697) EGFR (BEAKER) (test 84 mL/min/1.73 ESTIMA LU GFR IS code = 1092) sq m NOT ACCURATE CREATININE CLEARANCE IN PREDICTING GLOMERULAR FILTRATION RATE . ESTIMATED GFR I S NOT APPLICABLE FOR DIALYSIS PATIEN TS. Skin Carver ID - EDDIE [id number] 03:46:38 Test Item Value Reference Range Interpretation Comments MAGNESIUM (BEAKER) (test code = 2.1 mg/dL 1.6-2.6 627) Skin Carver ID - EDDIE [id number] 03:46:38 Test Item Value Reference Range Interpretation Comments PHOSPHORUS (BEAKER) (test code = 3.3 mg/dL 2.3-4.7 604) Skin Carver SANDIE MORGAN MCBC W/PLT COUNT & AUTO [id number] 03:24:38 Test Item Value Reference Range Interpretation Comments WHITE BLOOD CELL COUNT (BEAKER) 10.5 K/ L 3.5-10.5 (test code = 775) RED BLOOD CELL COUNT (BEAKER) 3.74 M/ L 4.63-6.08 L (test code = 761) HEMOGLOBIN (BEAKER) (test code = 12.9 GM/DL 13.7-17.5 L 410) HEMATOCRIT (BEAKER) (test code = 36.5 % 40.1-51.0 L 411) MEAN CORPUSCULAR VOLUME (BEAKER) 97.6 fL 79.0-92.2 H (test code = 753) MEAN CORPUSCULAR HEMOGLOBIN 34.5 pg 25.7-32.2 H (BEAKER) (test code = 751) MEAN CORPUSCULAR HEMOGLOBIN CONC 35.3 GM/DL 32.3-36.5 (BEAKER) (test code = 752) RED CELL DISTRIBUTION WIDTH 12.2 % 11.6-14.4 (BEAKER) (test code = 412) PLATELET COUNT (BEAKER) (test 298 K/CU MM 150-450 code = 756) MEAN PLATELET VOLUME (BEAKER) 9.5 fL 9.4-12.4 (test code = 754) NUCLEATED RED BLOOD CELLS 0 /100 WBC 0-0 (BEAKER) (test code = 413) NEUTROPHILS RELATIVE PERCENT 66 % (BEAKER) (test code = 429) LYMPHOCYTES RELATIVE PERCENT 23 % (BEAKER) (test code = 430) MONOCYTES RELATIVE PERCENT 9 % (BEAKER) (test code = 431) EOSINOPHILS RELATIVE PERCENT 2 % (BEAKER) (test code = 432) BASOPHILS RELATIVE PERCENT 0 % (BEAKER) (test code = 437) NEUTROPHILS ABSOLUTE COUNT 6.92 K/ L 1.78-5.38 H (BEAKER) (test code = 670) LYMPHOCYTES ABSOLUTE COUNT 2.39 K/ L 1.32-3.57 (BEAKER) (test code = 414) MONOCYTES ABSOLUTE COUNT (BEAKER) 0.97 K/ L 0.30-0.82 H (test code = 415) EOSINOPHILS ABSOLUTE COUNT 0.16 K/ L 0.04-0.54 (BEAKER) (test code = 416) BASOPHILS ABSOLUTE COUNT (BEAKER) 0.02 K/ L 0.01-0.08 (test code = 417) IMMATURE GRANULOCYTES-RELATIVE 0 % 0-1 PERCENT (BEAKER) (test code = 2801) POCT-GLUCOSE [id number] 21:41:20 Test Item Value Reference Range Interpretation Comments POC-GLUCOSE METER 111 mg/dL 70-110 H : TESTED A T [facility] 6720 (BEAKER) (test code = [facility], 1538) 30463: Skin Carver/Techni elizabeth ID = [id number] for ANASTASIYA COLE [id number] 19:21:39 Test Item Value Reference Range Interpretation Comments MAGNESIUM (BEAKER) (test code = 2.4 mg/dL 1.6-2.6 627) Skin Carver ID - BSPOCT-GLUCOSE [id number] 16:56:41 Test Item Value Reference Range Interpretation Comments POC-GLUCOSE METER 89 mg/dL 70-110 : TESTED A T [facility] 6720 (BEAKER) (test code = [facility], 1538) 52313: Skin Carver/Techni elizabeth ID = [id number] for GALI HAINES MR, BRAIN, WITHOUT [id number] 14:43:00Reason for exam:->StrokeWhat is the patient's sedation requirement?->No Sedation [facility] : 1940 Sex: MFINAL REPORT MR, BRAIN, WITHOUT CONTRAST INDICATION: Stroke, follow upStroke TECHNIQUE: Multiplanar, multisequence MR imaging of the brain without intravenous contrast. COMPARISON: CT 05/11/2021 and 05/10/2021 FINDINGS: Intracranial: Multifocal restricted diffusion and FLAIR hyperintensity within the right thalamus and midbrain and right mesial occipital lobe, consistent with acute infarcts. No acute intracranial hemorrhage. No mass effect. No hydrocephalus. Visualized intracranial flow voids are of normal course and caliber. Mild generalized cerebral volume loss for age. Scattered foci of T2 prolongation within the periventricular and subcortical white matter are a nons pecific finding commonly attributed to chronic small vessel ischemic disease. Sinuses: No evidence of sinusitis. Mastoids are clear. Orbits: Globes are intact. Calvarium \T\ scalp: Unremarkable. 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 Signed: Bridgette Pierson Verified Date/Time: 05/11/2021 14:43:04 POCT-GLUCOSE [id number] 12:46:52 Test Item Value Reference Range Interpretation Comments POC-GLUCOSE METER 100 mg/dL 70-110 : TESTED A T [facility] 6720 ([employer]) (test code = SHEILA Hoffmann [facility], 1538) 50416: Skin Carver/Techni elizabeth ID = [id number] for GALI POWELL [id number] 11:38:33 Test Item Value Reference Range Interpretation Comments RPR SCREEN ([employer]) (test code = Nonreactive Nonreactive 420) POCT-GLUCOSE [id number] 09:50:10 Test Item Value Reference Range Interpretation Comments POC-GLUCOSE METER 134 mg/dL 70-110 H : TESTED A T [facility]20 ([employer]) (test code CRAIG [facility], = 1538) 41822: Skin Carver/Techni elizabeth ID = [id number] for Татьяна Jameson POCT-GLUCOSE [id number] 06:37:43 Test Item Value Reference Range Interpretation Comments POC-GLUCOSE METER 99 mg/dL 70-110 : TESTED A T [facility] 6720 ([employer]) (test code = SHEILA Hoffmann [facility], 1538) 22602: Skin Carver/Techni elizabeth ID = [id number] for Samantha Perrin [id number] 06:30:32 Test Item Value Reference Range Interpretation Comments PARTIAL THROMBOPLASTIN TIME 28.6 seconds 22.5-36.0 (BEAKER) (test code = 760) [id number] 06:30:11 Test Item Value Reference Range Interpretation Comments FIBRINOGEN LEVEL (BEAKER) (test 272 mg/dl 225-434 code = 658) PROTHROMBIN TIME/[id number] 06:29:34 Test Item Value Reference Range Interpretation Comments PROTIME (BEAKER) 13.7 seconds 11.9-14.2 (test code = 759) INR (BEAKER) (test 1.07 See_Comment [Automat ed message] code = 370) The system [employer] generated this result transmitted ref erence range: <=5.90. The reference range was not used to int erpret this result as normal/abnormal . RECOMMENDED COUMADIN/WARFARIN INR THERAPY RANGESSTANDARD DOSE: 2.0 - 3.0 Includes: PROPHYLAXIS forvenous thrombosis, systemic embolization; TREATMENT for venous thrombosis and/or pulmonary embolus.HIGH RISK: Target INR is 2.5-3.5 for patients with mechanical heart valves.CT, BRAIN, WITHOUT [id number] 05:56:00Unlisted Reason for Exam - Click Yes and Enter Reason Below- >YesUnlisted Reason for Exam->New left side drift \T\ decreased sensation [facility] : 1940 Sex: MFINAL REPORT CT, BRAIN, WITHOUT CONTRAST CLINICAL INDICATION: Stroke, follow upNew left side drift \T\ decreased sensation COMPARISON: None TECHNIQUE: Noncontrast axial CT imaging of the brain and skull. Coronal and sagittal reformats obtained. DOSE REDUCTION: Dose modulation, iterative reconstruction, and/or weight-based adjustment of the mA/kV was utilized to reduce theradiation dose to as low as reasonably achievable. FINDINGS:Motion limited examination.Cerebral parenchyma: Right occipital lobe small region of hypodensity noted. Patchy white matter hypoattenuation redemonstrated. No hyperdense MCA sign. There is brain parenchymal volume loss. No mass, acute intracranial hemorrhage.Cerebellum and brainstem: No acute findings.Ventricles: No acute hydrocephalus.Extra-axial spaces: Unremarkable. Calvarium and skull base: Intact.Paranasal sinuses and mastoid air cells: Imaged chambers are without acute abnormality.Orbital contents: Included portions unremarkable. IMPR ESSION:Right occipital lobe cortical hyperdensity compatible with age indeterminate ischemia. MRI brain recommended for further characterization. Additional chronic microvascular ischemic changes are present. Signed: Jack Hyatt MDReport Verified Date/Time: 05/11/2021 05:56:14 [id number] 05:18:45 Test Item Value Reference Range Interpretation Comments PHOSPHORUS (BEAKER) 3.2 mg/dL 2.3-4.7 Specimen slightly (test code = 604) hemolyzed Skin Carver ID - JUDY WBASIC METABOLIC [id number] 05:18:45 Test Item Value Reference Range Interpretation Comments SODIUM (BEAKER) 140 meq/L 136-145 (test code = 381) POTASSIUM (BEAKER) 3.7 meq/L 3.5-5.1 Specimen slightly (test code = 379) hemolyzed CHLORIDE (BEAKER) 106 meq/L 98-107 (test code = 382) CO2 (BEAKER) (test 24 meq/L 22-29 code = 355) BLOOD UREA NITROGEN 16 mg/dL 7-21 (BEAKER) (test code = 354) CREATININE (BEAKER) 0.91 mg/dL 0.57-1.25 Specimen slightly (test code = 358) hemolyzed GLUCOSE RANDOM 103 mg/dL 70-105 (BEAKER) (test code = 652) CALCIUM (BEAKER) 8.2 mg/dL 8.4-10.2 L (test code = 697) EGFR (BEAKER) (test 80 mL/min/1.73 ESTIMA LU GFR IS code = 1092) sq m NOT ACCURATE CREATININE CLEARANCE IN PREDICTING GLOMERULAR FILTRATION RATE . ESTIMATED GFR I S NOT APPLICABLE FOR DIALYSIS PATIEN TSRigoberto Skin Carver ID Mic KIM [id number] 05:18:44 Test Item Value Reference Range Interpretation Comments MAGNESIUM (BEAKER) 1.7 mg/dL 1.6-2.6 Specimen slightly (test code = 627) hemolyzed Skin Carver ID - JUDY WCBC W/PLT COUNT & AUTO [id number] 05:02:34 Test Item Value Reference Range Interpretation Comments WHITE BLOOD CELL COUNT (BEAKER) 9.5 K/ L 3.5-10.5 (test code = 775) RED BLOOD CELL COUNT (BEAKER) 3.60 M/ L 4.63-6.08 L (test code = 761) HEMOGLOBIN (BEAKER) (test code = 12.4 GM/DL 13.7-17.5 L 410) HEMATOCRIT (BEAKER) (test code = 35.8 % 40.1-51.0 L 411) MEAN CORPUSCULAR VOLUME (BEAKER) 99.4 fL 79.0-92.2 H (test code = 753) MEAN CORPUSCULAR HEMOGLOBIN 34.4 pg 25.7-32.2 H (BEAKER) (test code = 751) MEAN CORPUSCULAR HEMOGLOBIN CONC 34.6 GM/DL 32.3-36.5 (BEAKER) (test code = 752) RED CELL DISTRIBUTION WIDTH 12.4 % 11.6-14.4 (BEAKER) (test code = 412) PLATELET COUNT (BEAKER) (test 263 K/CU MM 150-450 code = 756) MEAN PLATELET VOLUME (BEAKER) 9.7 fL 9.4-12.4 (test code = 754) NUCLEATED RED BLOOD CELLS 0 /100 WBC 0-0 (BEAKER) (test code = 413) NEUTROPHILS RELATIVE PERCENT 66 % (BEAKER) (test code = 429) LYMPHOCYTES RELATIVE PERCENT 21 % (BEAKER) (test code = 430) MONOCYTES RELATIVE PERCENT 10 % (BEAKER) (test code = 431) EOSINOPHILS RELATIVE PERCENT 2 % (BEAKER) (test code = 432) BASOPHILS RELATIVE PERCENT 0 % (BEAKER) (test code = 437) NEUTROPHILS ABSOLUTE COUNT 6.29 K/ L 1.78-5.38 H (BEAKER) (test code = 670) LYMPHOCYTES ABSOLUTE COUNT 1.97 K/ L 1.32-3.57 (BEAKER) (test code = 414) MONOCYTES ABSOLUTE COUNT (BEAKER) 0.92 K/ L 0.30-0.82 H (test code = 415) EOSINOPHILS ABSOLUTE COUNT 0.23 K/ L 0.04-0.54 (BEAKER) (test code = 416) BASOPHILS ABSOLUTE COUNT (BEAKER) 0.04 K/ L 0.01-0.08 (test code = 417) IMMATURE GRANULOCYTES-RELATIVE 0 % 0-1 PERCENT (BEAKER) (test code = 2801) POCT-GLUCOSE [id number] 21:31:30 Test Item Value Reference Range Interpretation Comments POC-GLUCOSE METER 107 mg/dL 70-110 : TESTED A T [facility] (BEAKER) (test code = [facility], 153) 69059: Skin Carver/Techni elizabeth ID = [id number] for Yokasta Chao POCT-GLUCOSE [id number] 18:45:17 Test Item Value Reference Range Interpretation Comments POC-GLUCOSE METER 148 mg/dL 70-110 H : TESTED A T [facility]20 (BEAKER) (test code = [facility], 153) [id number]: Skin Carver/Techni elizabeth ID = [id number] for Babs De La Torre RAPID DRUG SCREEN, [id number] 16:48:13 Test Item Value Reference Range Interpretation Comments BARBITURATE URINE (BEAKER) (test Negative Negative code = 725) BENZODIAZEPINE SCREEN URINE (BEAKER) Negative Negative (test code = 726) COCAINE (METAB.) SCREEN (BEAKER) Negative Negative (test code = 1164) METHADONE SCREEN (BEAKER) (test code Negative Negative = 1436) OPIATE SCREEN URINE (BEAKER) (test Negative Negative code = 734) CANNABINOID SCREEN URINE (BEAKER) Negative Negative (test code = 727) AMPH/METHAMPH SCREEN (BEAKER) (test Negative Negative code = 1438) PHENCYCLIDINE SCREEN URINE (BEAKER) Negative Negative (test code = 608) PH UA (BEAKER) (test code = 467) 6.0 5.0-8.0 DRUG CUTOFF CONC.Cocaine 300 ng/mL Cannabinoid 50 ng/mLBenzodiazepine 200 ng/mLBarbiturate 200 ng/mLPhencyclidine 25 ng/mLOpiate 300 ng/mLMethadone 300 ng/mLAmphetamine/ 1000 ng/mL MethamphetamineThis assay provides an unconfirmed qualitative test result for the clinical management of patients in emergency situations. Chain of custody not maintained. Some [id number] medications, as well as adulterants, may cause inaccurate results. Clinical correlation should be applied. A more comprehensivedrug screen or confirmation of a detected drug may be performed upon request.Skin Carver ID - DBURINALYSIS WITH MICROSCOPIC IF [id number] 15:10:45 Test Item Value Reference Range Interpretation Comments COLOR (BEAKER) (test code = 470) Light Yellow CLARITY (BEAKER) (test code = Clear 469) SPECIFIC GRAVITY UA (BEAKER) > 1.001-1.035 H (test code = 468) PH UA (BEAKER) (test code = 467) 7.0 5.0-8.0 PROTEIN UA (BEAKER) (test code = Negative Negative 464) GLUCOSE UA (BEAKER) (test code = Negative Negative 365) KETONES UA (BEAKER) (test code = Negative Negative 371) BILIRUBIN UA (BEAKER) (test code Negative Negative = 462) BLOOD UA (BEAKER) (test code = Moderate Negative A 461) NITRITE UA (BEAKER) (test code = Negative Negative 465) LEUKOCYTE ESTERASE UA (BEAKER) Large Negative A (test code = 466) UROBILINOGEN UA (BEAKER) (test 0.2 mg/dL 0.2-1.0 code = 463) SOURCE(BEAKER) (test code = 2795) Skin Carver ID - [auto]Skin Carver ID - techURINALYSIS [id number] 15:10:39 Test Item Value Reference Range Interpretation Comments RBC UA (BEAKER) (test code = 519) 49 /HPF WBC UA (BEAKER) (test code = 520) 14 /HPF BACTERIA (BEAKER) (test code = 517) Rare CRYSTALS, URINE (BEAKER) (test code None Seen = 1521) Skin Carver ID - techHEMOGLOBIN [id number] 14:58:17 Test Item Value Reference Range Interpretation Comments HEMOGLOBIN A1C (BEAKER) (test code = 5.4 % 4.3-6.1 368) VITAMIN B12 AND [id number] 14:29:23 Test Item Value Reference Range Interpretation Comments VITAMIN B12 235 pg/mL 213-816 (BEAKER) (test code = 774) FOLATE (BEAKER) 16.00 ng/mL See_Comment [Automated message] (test code = 362) The system which generated this result transmitted ref erence range: >=7.00. The reference range was not used to interpr et this result as normal/abnormal . Skin Carver ID - RMTSH/FREE T4 IF [id number] 13:12:41 Test Item Value Reference Range Interpretation Comments THYROID STIMULATING HORMONE 1.649 uIU/mL 0.350-4.940 (BEAKER) (test code = 772) Skin Carver ID - DBHIGH SENSITIVITY TROPONIN [id number] 12:58:22 Test Item Value Reference Range Interpretation Comments HIGH SENSITIVITY 6 pg/ml See_Comment [Automated message] TROPONIN I (test code = The system which [id number]) generated this result transmitted ref erence range: <=35. Th e reference range was not used to interpr et this result as normal/abnormal . Skin Carver ID - DBThe NEEDLE POLISHER STAT High Sensitivity Troponin-I results should be used in conjunctionwith other diagnostic information such as ECG, clinical observations and information, and patient symptoms to aid in the diagnosis of [facility].HEPATIC FUNCTION [id number] 12:52:44 Test Item Value Reference Range Interpretation Comments TOTAL PROTEIN (BEAKER) 7.4 gm/dL 6.0-8.3 Speci men moderately (test code = 770) hemolyzed ALBUMIN (BEAKER) (test 4.0 g/dL 3.5-5.0 Speci men moderately code = 1145) hemolyzed BILIRUBIN TOTAL 1.0 mg/dL 0.2-1.2 Specimen mod erately (BEAKER) (test code = hemoly zed 377) BILIRUBIN DIRECT 0.3 mg/dL 0.1-0.5 Specimen mo derately (BEAKER) (test code = hemoly zed 706) ALKALINE PHOSPHATASE 50 U/L 40-150 (BEAKER) (test code = 346) AST (SGOT) (BEAKER) 26 U/L 5-34 Specimen moderately (test code = 353) hemolyzed ALT (SGPT) (BEAKER) 8 U/L 6-55 Specimen moderately (test code = 347) hemolyzed Skin Carver ID - DBLIPID [id number] 12:52:43 Test Item Value Reference Range Interpretation Comments TRIGLYCERIDES (BEAKER) 122 mg/dL Speci men moderately (test code = 540) hemolyzed CHOLESTEROL (BEAKER) 176 mg/dL Specime n moderately (test code = 631) hemolyzed HDL CHOLESTEROL (BEAKER) 50 mg/dL (test code = 976) LDL CHOLESTEROL 102 mg/dL CALCULATED (BEAKER) (test code = 633) Triglyceride Reference Range: Low Risk <150 Borderline 150-199 High Risk 200-499 Very High Risk >=500Cholesterol Reference Range: Low Risk <200 Borderline 200-239 High Risk >240HDL Cholesterol Reference Range: Low Risk >=60 High Risk <40LDL Cholesterol Reference Range: Optimal <100 Near Optimal 100-129 Borderline 130-159 High 160-189 Very High >=190 Skin Carver ID - [id number] 12:52:42 Test Item Value Reference Range Interpretation Comments PHOSPHORUS (BEAKER) 3.2 mg/dL 2.3-4.7 Specimen moderately (test code = 604) hemolyzed Skin Carver ID - DBBASIC METABOLIC [id number] 12:52:42 Test Item Value Reference Range Interpretation Comments SODIUM (BEAKER) 137 meq/L 136-145 (test code = 381) POTASSIUM (BEAKER) 4.6 meq/L 3.5-5.1 Specimen moderately (test code = 379) hemolyzed CHLORIDE (BEAKER) 103 meq/L 98-107 (test code = 382) CO2 (BEAKER) (test 26 meq/L 22-29 code = 355) BLOOD UREA NITROGEN 15 mg/dL 7-21 (BEAKER) (test code = 354) CREATININE (BEAKER) 0.95 mg/dL 0.57-1.25 Specimen moderately (test code = 358) hemolyzed GLUCOSE RANDOM 98 mg/dL 70-105 (BEAKER) (test code = 652) CALCIUM (BEAKER) 8.7 mg/dL 8.4-10.2 (test code = 697) EGFR (BEAKER) (test 76 mL/min/1.73 ESTIMA LU GFR IS code = 1092) sq m NOT ACCURATE CREATININE CLEARANCE IN PREDICTING GLOMERULAR FILTRATION RATE . ESTIMATED GFR I S NOT APPLICABLE FOR DIALYSIS PATIEN TS. Skin Carver ID - [id number] 12:52:41 Test Item Value Reference Range Interpretation Comments MAGNESIUM (BEAKER) 2.0 mg/dL 1.6-2.6 Specimen moderately (test code = 627) hemolyzed Skin Carver ID - [id number] 12:42:38 Test Item Value Reference Range Interpretation Comments PARTIAL THROMBOPLASTIN TIME 29.1 seconds 22.5-36.0 (BEAKER) (test code = 760) PROTHROMBIN TIME/[id number] 12:41:56 Test Item Value Reference Range Interpretation Comments PROTIME (BEAKER) 13.8 seconds 11.9-14.2 (test code = 759) INR (BEAKER) (test 1.08 See_Comment [Automat ed message] code = 370) The system [employer] generated this result transmitted ref erence range: <=5.90. The reference range was not used to int erpret this result as normal/abnormal . RECOMMENDED COUMADIN/WARFARIN INR THERAPY RANGESSTANDARD DOSE: 2.0 - 3.0 Includes: PROPHYLAXIS forvenous thrombosis, systemic embolization; TREATMENT for venous thrombosis and/or pulmonary embolus.HIGH RISK: Target INR is 2.5-3.5 for patients with mechanical heart valves.CBC W/PLT COUNT & AUTO DIFFERENTIAL 2021-05-10 12:35:19 Test Item Value Reference Range Interpretation Comments WHITE BLOOD CELL COUNT (BEAKER) 11.6 K/ L 3.5-10.5 H (test code = 775) RED BLOOD CELL COUNT (BEAKER) 3.87 M/ L 4.63-6.08 L (test code = 761) HEMOGLOBIN (BEAKER) (test code = 13.3 GM/DL 13.7-17.5 L 410) HEMATOCRIT (BEAKER) (test code = 38.4 % 40.1-51.0 L 411) MEAN CORPUSCULAR VOLUME (BEAKER) 99.2 fL 79.0-92.2 H (test code = 753) MEAN CORPUSCULAR HEMOGLOBIN 34.4 pg 25.7-32.2 H (BEAKER) (test code = 751) MEAN CORPUSCULAR HEMOGLOBIN CONC 34.6 GM/DL 32.3-36.5 (BEAKER) (test code = 752) RED CELL DISTRIBUTION WIDTH 12.6 % 11.6-14.4 (BEAKER) (test code = 412) PLATELET COUNT (BEAKER) (test 295 K/CU MM 150-450 code = 756) MEAN PLATELET VOLUME (BEAKER) 9.6 fL 9.4-12.4 (test code = 754) NUCLEATED RED BLOOD CELLS 0 /100 WBC 0-0 (BEAKER) (test code = 413) NEUTROPHILS RELATIVE PERCENT 75 % (BEAKER) (test code = 429) LYMPHOCYTES RELATIVE PERCENT 15 % (BEAKER) (test code = 430) MONOCYTES RELATIVE PERCENT 8 % (BEAKER) (test code = 431) EOSINOPHILS RELATIVE PERCENT 1 % (BEAKER) (test code = 432) BASOPHILS RELATIVE PERCENT 0 % (BEAKER) (test code = 437) NEUTROPHILS ABSOLUTE COUNT 8.76 K/ L 1.78-5.38 H (BEAKER) (test code = 670) LYMPHOCYTES ABSOLUTE COUNT 1.74 K/ L 1.32-3.57 (BEAKER) (test code = 414) MONOCYTES ABSOLUTE COUNT (BEAKER) 0.91 K/ L 0.30-0.82 H (test code = 415) EOSINOPHILS ABSOLUTE COUNT 0.14 K/ L 0.04-0.54 (BEAKER) (test code = 416) BASOPHILS ABSOLUTE COUNT (BEAKER) 0.04 K/ L 0.01-0.08 (test code = 417) IMMATURE GRANULOCYTES-RELATIVE 0 % 0-1 PERCENT (BEAKER) (test code = 2801) CT, CTANGIO [id number] 11:08:00Reason for exam:->Symptoms onset less than 6 hours and NIHSS 6 or greater [facility] 1940 Sex: MFINAL REPORT CT, CAROTID, ANGIO, CT, CEREBRAL PERFUSION ANALYSIS, CT, CTANGIO BRAINBRAIN CT WITHOUT CONTRAST INDICATION: Neuro deficit, acute, stroke suspectedSymptoms onsetless than 6 hours and NIHSS 6 or greater COMPARISON: None TECHNIQUE:Rapid acquisition spiral images were obtained between the aortic arch and the cranial vertex during intravenous contrast infusion to reconstruct axial images and angiographic 3D maximum intensity projections (MIP). 3-D volumetric reformatted images were created at a dedicated workstation. Precontrast images of the brain were also obtained. Stenosis evaluation reported in compliance with NASCET criteria. DOSE REDUCTION: Dose modulation, iterative reconstruction, and/or weight-based adjustment of the mA/kV was utilized to reduce theradiation dose to as low as reasonably achievable. FINDINGS:CT BRAIN:NECT BRAIN:Small ossified meningioma along the left anterior temporal pole within the middle cranial fossa. No significant mass effect on the subjacent parenchyma. No intracranial hemorrhage, midline shift or mass effect. Midline structures are normally developed. Mild chronic microvascular ischemic changes of the periventricular and subcortical white matter are present. No hydrocephalus. Orbits are within normal limits. No obstructive paranasal sinus disease. CTA BRAIN:Internal carotid arteries: Petrous, cavernous and supraclinoid portions patent. Middle cerebral arteries: Bilateral MCA M1-M2 branches demonstrate normal contrastenhancement.Anterior cerebral arteries: Bilateral TED A1-A2 branches demonstrate normal contrast enhancement.Basilar system: Normal contrast opacification of the vertebrobasilar system.Posterior cerebral arteries: Occlusion of the right INDUSTRIAL AUTOMATION ENGINEER, presumably chronic as there is no corresponding perfusion deficit. Contralateral left posterior cerebral artery demonstrates normal contrast opacification. Venous opacification: Major dural sinuses unremarkable for bolus timing.Additional findings: None. CT PERFU NEAL:Technique:Arterial input function: ACAVenous outflow function: TorcularSite of normal perfusion: right anterior territoryParametric Maps: Region of mismatch within the left temporal lobe with mismatch volume of 8 cc.No proximal branch occlusion. CTA NECK:Common carotid arteries: There is normal contrast opacification of the bilateral common carotid arteries.Cervical internal carotid arteries: Normal contrast opacification of the bilateral cervical internal carotid arteries without significant stenosis by NASCET criteria.Vertebral arteries: Normal contrast opacification of the bilateral cervical vertebral arteries.Arch anatomy: Conventional. Nonvascular findings:No acute findings within the neck soft tissues. IMPRESSION: Small ossified meningioma along the left anterior temporal pole within the middle cranial fossa. No significant mass effect on the subjacent parenchyma. No acute intracranial hemorrhage. Region of mismatch within the left temporal lobe with mismatch volume of 8 cc.No proximal branch occlusion. Occlusion of the right INDUST[employer] AUTOMATION ENGINEER, presumably chronic as there is no corresponding perfusion deficit. Unremarkable CTA of the neck. Signed: Doreen Pitts MDReport Verified Date/Time: 05/10/2021 11:08:14 Reading Location: [address] Neuro Reading Room CT, CAROTID, [id number] 11:08:00Reason for exam:- >Symptoms onset less than 6 hours and NIHSS 6 or greater [facility] 1940 Sex: MFINAL REPORT CT, CAROTID, ANGIO, CT, CEREBRAL PERFUSION ANALYSIS, CT, CTANGIO BRAINBRAIN CT WITHOUT CONTRAST INDICATION: Neuro deficit, acute, stroke suspectedSymptoms onsetless than 6 hours and NIHSS 6 or greater COMPARISON: None TECHNIQUE:Rapid acquisition spiral images were obtained between the aortic arch and the cranial vertex during intravenous contrast infusion to reconstruct axial images and angiographic 3D maximum intensity projections (MIP). 3-D volumetric reformatted images were created at a dedicated workstation. Precontrast images of the brain were also obtained. Stenosis evaluation reported in compliance with NASCET criteria. DOSE REDUCTION: Dose modulation, iterative reconstruction, and/or weight-based adjustment of the mA/kV was utilized to reduce theradiation dose to as low as reasonably achievable. FINDINGS:CT BRAIN:NECT BRAIN:Small ossified meningioma along the left anterior temporal pole within the middle cranial fossa. No significant mass effect on the subjacent parenchyma. No intracranial hemorrhage, midline shift or mass effect. Midline structures are normally developed. Mild chronic microvascular ischemic changes of the periventricular and subcortical white matter are present. No hydrocephalus. Orbits are within normal limits. No obstructive paranasal sinus disease. CTA BRAIN:Internal carotid arteries: Petrous, cavernous and supraclinoid portions patent. Middle cerebral arteries: Bilateral MCA M1-M2 branches demonstrate normal contrastenhancement.Anterior cerebral arteries: Bilateral TED A1-A2 branches demonstrate normal contrast enhancement.Basilar system: Normal contrast opacification of the vertebrobasilar system.Posterior cerebral arteries: Occlusion of the right INDUST[employer] AUTOMATION ENGINEER, presumably chronic as there is no corresponding perfusion deficit. Contralateral left posterior cerebral artery demonstrates normal contrast opacification. Venous opacification: Major dural sinuses unremarkable for bolus timing.Additional findings: None. CT PERFU NEAL:Technique:Arterial input function: ACAVenous outflow function: TorcularSite of normal perfusion: right anterior territoryParametric Maps: Region of mismatch within the left temporal lobe with mismatch volume of 8 cc.No proximal branch occlusion. CTA NECK:Common carotid arteries: There is normal contrast opacification of the bilateral common carotid arteries.Cervical internal carotid arteries: Normal contrast opacification of the bilateral cervical internal carotid arteries without significant stenosis by NASCET criteria.Vertebral arteries: Normal contrast opacification of the bilateral cervical vertebral arteries.Arch anatomy: Conventional. Nonvascular findings:No acute findings within the neck soft tissues. IMPRESSION: Small ossified meningioma along the left anterior temporal pole within the middle cranial fossa. No significant mass effect on the subjacent parenchyma. No acute intracranial hemorrhage. Region of mismatch within the left temporal lobe with mismatch volume of 8 cc.No proximal branch occlusion. Occlusion of the right IND[employer] AUT[employer] ENG[employer]ER, presumably chronic as there is no corresponding perfusion deficit. Unremarkable CTA of the neck. Signed: Doreen Pitts MDRjazminort Verified Date/Time: 05/10/2021 11:08:14 Reading Location: [address] Neuro Reading Room CT, CEREBRAL PERFUSION [id number] 11:08:00Reason for exam:->Symptom onset less than 6 hours and NIHSS 6 or greater [facility] : 1940 Sex: MFINAL REPORT CT, CAROTID, ANGIO, CT, CEREBRAL PERFUSION ANALYSIS, CT, CTANGIO BRAINBRAIN CT WITHOUT CONTRAST INDICATION: Neuro deficit, acute, stroke suspectedSymptoms onsetless than 6 hours and NIHSS 6 or greater COMPARISON: None TECHNIQUE:Rapid acquisition spiral images were obtained between the aortic arch and the cranial vertex during intravenous contrast infusion to reconstruct axial images and angiographic 3D maximum intensity projections (MIP). 3-D volumetric reformatted images were created at a dedicated workstation. Precontrast images of the brain were also obtained. Stenosis evaluation reported in compliance with NASCET criteria. DOSE REDUCTION: Dose modulation, iterative reconstruction, and/or weight-based adjustment of the mA/kV was utilized to reduce theradiation dose to as low as reasonably achievable. FINDINGS:CT BRAIN:NECT BRAIN:Small ossified meningioma along the left anterior temporal pole within the middle cranial fossa. No significant mass effect on the subjacent parenchyma. No intracranial hemorrhage, midline shift or mass effect. Midline structures are normally developed. Mild chronic microvascular ischemic changes of the periventricular and subcortical white matter are present. No hydrocephalus. Orbits are within normal limits. No obstructive paranasal sinus disease. CTA BRAIN:Internal carotid arteries: Petrous, cavernous and supraclinoid portions patent. Middle cerebral arteries: Bilateral MCA M1-M2 branches demonstrate normal contrastenhancement.Anterior cerebral arteries: Bilateral TED A1-A2 branches demonstrate normal contrast enhancement.Basilar system: Normal contrast opacification of the vertebrobasilar system.Posterior cerebral arteries: Occlusion of the right IND[employer] AUTOMATION ENGINEER, presumably chronic as there is no corresponding perfusion deficit. Contralateral left posterior cerebral artery demonstrates normal contrast opacification. Venous opacification: Major dural sinuses unremarkable for bolus timing.Additional findings: None. CT PERFU NEAL:Technique:Arterial input function: ACAVenous outflow function: TorcularSite of normal perfusion: right anterior territoryParametric Maps: Region of mismatch within the left temporal lobe with mismatch volume of 8 cc.No proximal branch occlusion. CTA NECK:Common carotid arteries: There is normal contrast opacification of the bilateral common carotid arteries.Cervical internal carotid arteries: Normal contrast opacification of the bilateral cervical internal carotid arteries without significant stenosis by NASCET criteria.Vertebral arteries: Normal contrast opacification of the bilateral cervical vertebral arteries.Arch anatomy: Conventional. Nonvascular findings:No acute findings within the neck soft tissues. IMPRESSION: Small ossified meningioma along the left anterior temporal pole within the middle cranial fossa. No significant mass effect on the subjacent parenchyma. No acute intracranial hemorrhage. Region of mismatch within the left temporal lobe with mismatch volume of 8 cc.No proximal branch occlusion. Occlusion of the right [employer] AUTOMATION ENGINEER, presumably chronic as there is no corresponding perfusion deficit. Unremarkable CTA of the neck. Signed: Doreen Pitts MDReport Verified Date/Time: 05/10/2021 11:08:14 Reading Location: [facility] Neuro Reading Room
[2021-10-15] MEDS ORDERED: TETANUS & DIPHTHERIA TOX,ADULT 0.5 ML VIAL ONE (16:23)
[2021-10-15] MEDS ORDERED: LIDOCAINE 1% MPF 5 ML VIAL ONE (16:23)
--- NOTE | 2021-10-15 16:57 | RAD REPORT ---
EXAM DESCRIPTION: CT - Head Brain Wo Cont - 10/15/2021 4:46 pm CLINICAL HISTORY: Head injury status post fall COMPARISON: 2020 TECHNIQUE: Computed axial tomography of the head was obtained. IV contrast was not requested. All CT scans are performed using dose optimization technique as appropriate and may include automated exposure control or mA/KV adjustment according to patient size. FINDINGS: An intracranial bleed is not seen . The ventricles are normal in caliber. No extra-axial fluid collection is noted. Mild low-density areas within periventricular, deep and subcortical white matter likely represent isc hemic changes secondary to small vessel disease. Fluid within the sinuses/ mastoids is not seen. IMPRESSION: No acute intracranial abnormality is seen. If patient's symptoms persist MRI of the bra in would be recommended.
--- NOTE | 2021-10-15 17:38 | EDPHYS ---
Physician Documentation [facility] Name: Shahbaz Harper Age: 81 yrs Sex: Male : 1940 Arrival Date: 10/15/2021 Time: 15:18 Bed 13 Private MD: ED Physician Osvaldo Cerrato HPI: 10/15 15:52 This 81 yrs old Male presents to ER via Ambulatory with complaints of Fall Injury. pm1 15:52 Details of fall: The patient fell from an upright position, while walking, and struck pm1 asphalt. Onset: The symptoms/episode began/occurred just prior to arrival. Associated injuries: The patient sustained upper lip, laceration, upper left central incisor and upper left lateral incisor, chipped teeth, philtrum, abrasion. Severity of symptoms:. Severity of symptoms: in the emergency department the symptoms are unchanged. The patient has not experienced similar symptoms in the past. The patient has not recently seen a physician. Historical: - Allergies: 15:42 No Known Allergies; iw - Immunization history:: Adult Immunizations up to date, Last tetanus immunization: unknown. - Immunization history: Last tetanus immunization: unknown. - Social history:: Smoking status: Patient denies any tobacco usage or history of. ROS: 15:52 Constitutional: Negative for fever, chills, and weight loss, Cardiovascular: Negative pm1 for chest pain, palpitations, and edema, Respiratory: Negative for shortness of breath, cough, wheezing, and pleuritic chest pain. 15:52 Skin: Negative for injury, rash, and discoloration, Neuro: Negative for headache, weakness, numbness, tingling, and seizure. 15:52 ENT: Positive for injury or acute deformity, Abrasion to upper outer lip. Laceration to upper lip without breaking vermilion border. 15:52 MS/extremity: Positive for abrasion, of the heel of right hand, Negative for decreased range of motion, deformity. 15:52 All other systems are negative. Exam: 15:52 Constitutional: This is a well developed, well nourished patient who is awake, alert, pm1 and in no acute distress. Head/Face: Normocephalic, atraumatic. 15:52 Back: No spinal tenderness. No costovertebral tenderness. Full range of motion. 15:52 Skin: Warm, dry with normal turgor. Normal color with no rashes, no lesions, and no evidence of cellulitis. 15:52 Eyes: Exam is negative for acute changes, Periorbital structures: Pupils: no acute changes, Extraocular movements: no acute changes. 15:52 ENT: Mouth: 2 cm laceration to upper lip not crossing the vermilion border, midline. No injury to upper frenulum, Dental exam: Chipped teeth #9 and #10. 15:52 Neck: Exam negative for acute changes, External neck: is normal, C-spine: no acute changes, vertebral tenderness, is not appreciated. 15:52 Cardiovascular: Exam negative for acute changes, Rate: normal, Rhythm: regular, Pulses: no pulse deficits are appreciated. 15:52 Respiratory: Exam negative for acute changes, respiratory distress, shortness of breath. 15:52 Musculoskeletal/extremity: Extremities: grossly normal except: noted in the heel of right hand: abrasion, There is no evidence of decreased ROM, deformity, ROM: full active range of motion, in the right arm and left arm, full passive range of motion, in the right arm and left arm. 15:52 Neuro: Exam negative for acute changes, Orientation: is normal, Mentation: is normal, Motor: is normal, moves all fours. Vital Signs: 15:41 BP 137 / 81; Pulse 84; Resp 16; Temp 98.7; Pulse Ox 97% on R/A; Weight 77.11 kg; Height iw 5 ft. 8 in. (172.72 cm); 15:41 Body Mass Index 25.85 (77.11 kg, 172.72 cm) iw Katia Coma Score: 16:00 Eye Response: spontaneous(4). Verbal Response: oriented(5). Motor Response: obeys ojeda commands(6). Total: 15. Trauma Score (Adult): 16:00 Eye Response: spontaneous(1); Verbal Response: oriented(1); Motor Response: obeys ojeda commands(2); Systolic BP: > 89 mm Hg(4); Respiratory Rate: 10 to 29 per min(4); Katia Score: 15; Trauma Score: 12 Laceration: 17:35 Wound Repair of 2cm ( 0.8in ) subcutaneous laceration to upper lip. Irregularly pm1 shaped.. Distal neuro/vascular/tendon intact. Anesthesia: Local anesthetic administered with 3 mls of 1% lidocaine. Wound prep: Extensive cleansing by me, Wound irrigation with saline by me, Wound explored extensively, Copious irrigation. Skin closed with 7 5-0 Vicryl using simple sutures and sterile technique. Patient tolerated well. MDM: 15:49 Patient medically screened. pm1 17:36 Data reviewed: vital signs. Data interpreted: Pulse oximetry: on room air is 97 %. pm1 Interpretation: normal. Counseling: I had a detailed discussion with the patient and/or guardian regarding: the historical points, exam findings, and any diagnostic results supporting the discharge/admit diagnosis, the need for outpatient follow up, to return to the emergency department if symptoms worsen or persist or if there are any questions or concerns that arise at home. 10/15 15:52 Order name: CT Head Brain wo Cont pm1 10/15 15:56 Order name: Head Brain Wo Cont; Complete Time: 16:58 EDMS 10/15 15:52 Order name: Dressing - Wound pm1 10/15 15:52 Order name: Gloves, Sterile pm1 10/15 15:52 Order name: Setup Suture Tray pm1 10/15 15:52 Order name: Vicryl, Sutures pm1 Administered Medications: 16:27 Drug: Tetanus-Diphtheria Toxoid Adult 0.5 ml {Wire Twister: [employer]. Exp: ojeda 08/21/2023. Lot #: [id number]. } Route: IM; Site: right deltoid; 17:32 Follow up: Response: No adverse reaction ojeda 17:32 Drug: Lidocaine (1 %) 5 ml Volume: 5 ml; Route: Infiltration; ojeda 17:40 Drug: traMADol 50 mg Route: PO; ojeda 17:58 Follow up: Response: No adverse reaction Disposition Summary: 10/15/21 17:37 Discharge Ordered Location: Home pm1 Problem: new pm1 Symptoms: have improved pm1 Condition: Stable pm1 Diagnosis - Laceration without foreign body of lip pm1 - Fall on same level, unspecified pm1 Followup: pm1 - With: Emergency Department - When: As needed - Reason: Worsening of condition Followup: pm1 - With: Private Physician - When: 2 - 3 days - Reason: Recheck today's complaints, Continuance of care, Re-evaluation by your physician Discharge Instructions: - Discharge Summary Sheet pm1 - Fall Prevention in the Home, Adult pm1 - Mouth Laceration pm1 Forms: - Medication Reconciliation Form pm1 - Thank You Letter pm1 - Antibiotic Education pm1 - Prescription Opioid Use pm1 Prescriptions: - Augmentin 875-125 mg Oral Tablet - take 1 tablet by ORAL route every 12 hours for 10 days; 20 tablet; Refills: 0, pm1 Product Selection Permitted - Tramadol 50 mg Oral Tablet - take 1 tablet by ORAL route every 12 hours As needed as needed; 6 tablet; pm1 Refills: 0, Product Selection Permitted Signatures: Dispatcher [employer] Gayathri Naqvi RN RN Goyo Han, PATRICE ROOF TRUSS DETAILER pm1 Nohemi-Sweetie Collier RN RN ojeda
--- NOTE | 2021-10-15 17:38 | ER ---
Nurse's Notes [facility] Name: Shahbaz Harper Age: 81 yrs Sex: Male : 1940 Arrival Date: 10/15/2021 Time: 15:18 Bed 13 Private MD: Diagnosis: Laceration without foreign body of lip;Fall on same level, unspecified Presentation: 10/15 15:40 Chief complaint: Patient states: was walking back from mailbox and lost his balance, hx iw of a stroke , fell froward, hit face , split upper lip open and abrasion to palm of right hand, is on clopidogrel. Care prior to arrival:. 15:40 Acuity: OLE 4 iw 15:40 Method Of Arrival: Ambulatory iw 15:41 Coronavirus screen: At this time, the client does not indicate any symptoms associated iw with coronavirus-19. Ebola Screen: Patient negative for fever greater than or equal to 101.5 degrees Fahrenheit, and additional compatible Ebola Virus Disease symptoms Patient denies exposure to infectious person. Patient denies travel to an Ebola-affected area in the 21 days before illness onset. No symptoms or risks identified at this time. Initial Sepsis Screen: Does the patient meet any 2 criteria? No. Patient's initial sepsis screen is negative. Does the patient have a suspected source of infection? No. Patient's initial sepsis screen is negative. Risk Assessment: Do you want to hurt yourself or someone else? Patient reports no desire to harm self or others. Onset of symptoms was October 15, 2021. 15:45 Acuity: OLE 3 ss 16:00 Mechanism of Injury: Fall. Trauma event details: Injury occurred: October 15, 2021. Triage Assessment: 15:58 General: Appears in no apparent distress. Behavior is calm, cooperative. ojeda Trauma Activation: Alert Physician: ED Physician; Name: ; Notified At: ; Arrived At: Physician: General Surgeon; Name: ; Notified At: ; Arrived At: Physician: Radiology; Name: ; Notified At: ; Arrived At: Physician: Respiratory; Name: ; Notified At: ; Arrived At: Physician: Lab; Name: ; Notified At: ; Arrived At: Historical: - Allergies: 15:42 No Known Allergies; iw - Immunization history:: Adult Immunizations up to date, Last tetanus immunization: unknown. - Immunization history: Last tetanus immunization: unknown. - Social history:: Smoking status: Patient denies any tobacco usage or history of. Screenin:57 Abuse screen: Denies threats or abuse. Denies injuries from another. Nutritional ojeda screening: No deficits noted. Tuberculosis screening: No symptoms or risk factors identified. Fall Risk Primary Survey: 16:00 NO uncontrolled hemorrhage observed. A: The client is awake and alert. The airway is ojeda patent. The client is alert. Airway: patent. Breathing/Chest: Spontaneous respiratory effort, equal unlabored respirations, breath sounds clear bilaterally, regular pattern, symmetrical chest rise and fall. Respiratory effort: spontaneous. Circulation: No external hemorrhage present. Regular and strong central pulse, skin warm/dry/normal color. Disability Client is alert. Exposure/Environment: A warming method has been applied: A warm blanket has been provided to the patient. 16:02 Reassessment Alertness and Airway: Awake and alert. The airway is patent. Airway Patent ojeda Breathing: Circulation: No external hemorrhage noted. Regular and strong central pulse, skin warm/dry/normal color. Disability: Alert. Assessment: 15:57 Pain: Complains of pain in face and mouth. Injury Description: Head injury sustained to ojeda mouth. 16:00 General: Appears in no apparent distress. Behavior is calm, cooperative. ojeda 17:33 Injury Description: Laceration sustained to mouth is 2.6 to 7.5 cm long, bleeding ojeda moderately. Vital Signs: 15:41 BP 137 / 81; Pulse 84; Resp 16; Temp 98.7; Pulse Ox 97% on R/A; Weight 77.11 kg; Height iw 5 ft. 8 in. (172.72 cm); 15:41 Body Mass Index 25.85 (77.11 kg, 172.72 cm) iw Katia Coma Score: 16:00 Eye Response: spontaneous(4). Verbal Response: oriented(5). Motor Response: obeys ojeda commands(6). Total: 15. Trauma Score (Adult): 16:00 Eye Response: spontaneous(1); Verbal Response: oriented(1); Motor Response: obeys ojeda commands(2); Systolic BP: > 89 mm Hg(4); Respiratory Rate: 10 to 29 per min(4); Ripley Score: 15; Trauma Score: 12 ED Course: 15:18 Patient arrived in ED. ds1 15:41 Triage completed. iw 15:44 Goyo Roy NP is PHCP. pm1 15:44 Osvaldo Cerrato MD is Attending Physician. pm1 15:45 Arm band placed on. jesica 15:52 Sweetie Luque, RONA is Primary Nurse. ojeda 15:57 Patient has correct armband on for positive identification. Bed in low position. ojeda 15:57 No provider procedures requiring assistance completed. ojeda 16:02 Patient maintains SpO2 saturation greater than 95% on room air. ojeda 16:48 Head Brain Wo Cont In Process Unspecified. EDMS 17:58 Patient did not have IV access during this emergency room visit. 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 Exp: ojeda 08/21/2023. Lot #: [id number]. } Route: IM; Site: right deltoid; 17:32 Follow up: Response: No adverse reaction ojeda 17:32 Drug: Lidocaine (1 %) 5 ml Volume: 5 ml; Route: Infiltration; ojeda 17:40 Drug: traMADol 50 mg Route: PO; ojeda 17:58 Follow up: Response: No adverse reaction ojeda Intake: 16:00 PO: 0ml; Total: 0ml. ojeda Outcome: 17:37 Discharge ordered by MD. pm1 17:58 Condition: good ojeda 17:58 Discharge instructions given to patient, Prescriptions given X 2. 17:58 Discharged to home with family. ojeda 17:59 Patient left the ED. ojeda Signatures: Dispatcher [employer] [facility] Emily Andrea [facility] Gayathri Carlson RN RN Estefanía Bush RN RN Goyo Roy NP DRYING OVEN ATTENDANT pm1 Sweetie Luque RN RN ojeda
[2021-10-15] MEDS ORDERED: TRAMADOL HCL 50 MG TAB ONE (17:52)
[2021-10-15 20:26] VITALS: BP 137/81; TEMP 98.7; O2SAT 97
== END 2021-10-15 17:59 | disposition home or self-care (01) ==
LOC: ER 15:16
PROC: 0CQ0XZZ Repair Upper Lip, External Approach (ICD-10-PCS; principal; 2021-10-15)
DX: S01.511A Laceration without foreign body of lip, initial encounter (principal); W18.30XA Fall on same level, unspecified, initial encounter; Z23 Encounter for immunization
CPT/HCPCS: 70450; 90471; 90714; 99284

== ENCOUNTER 2023-01-29 13:36 | Emergency (ER) | payer OTHER ==
--- OUTSIDE RECORDS SUMMARY | 2023-01-29 14:01 | XMS REPORT | Continuity of Care Document ---
:1940 Author Organization [facility] t Address [address] [place] [address] [address] [place] [address] Care Team Providers Name Role Phone Tima Wills MD Primary Care Physician [phone] Attending Clinician Unavailable Marcella Powell Attending Clinician Unavailable APRYL RIOJAS Attending Clinician Unavailable Tima Wills MD Attending Clinician CELIA_Edwige_Manjit_ Attending Clinician Unavailable Vania Colon MD Attending Clinician [phone] Apryl Riojas MD Attending Clinician Doctor Unassigned, [place] Attending Clinician Unavailable VANIA COLON Attending Clinician Unavailable NICOLAS DANIELLE Attending Clinician Unavailable Nicolas Danielle MD Attending Clinician Lab, Ang - Db Attending Clinician Unavailable TIMA WILLS Attending Clinician Unavailable NOAM SMITH Attending Clinician Unavailable Noam Urbano Attending Clinician NADIYA LEIVA Attending Clinician Unavailable Nadiya Hensley Attending Clinician Ventura Owens MD Attending Clinician VENTURA OWENS Attending Clinician Unavailable ELENA BELLE Attending Clinician Unavailable Eliseo Truong MD Attending Clinician ELISEO TRUONG Attending Clinician Unavailable ELISEO TRUONG Attending Clinician Unavailable Leandro Julien Anavella Attending Clinician UnaYENNI Ruffin Attending Clinician Unavailable MARISELA AVENDANO I. Attending Clinician Unavailable Lab, Adc Fam Pob I Attending Clinician Unavailable Roe DISC PAD PLATE FILLER, Farshad Attending Clinician FARSHAD QUILES Attending Clinician Unavailable [id number] Admitting Clinician Unavailable CELIA_Edwige_Rebecca Admitting Clinician Unavailable VANIA COLON Admitting Clinician Unavailable NICOLAS DANIELLE Admitting Clinician Unavailable Candace Julien Anav Admitting Clinician Unavailable TAZ CEJA Admitting Clinician Unavailable Payers Payer Name Policy Type Policy Number Effective Date Expiration Date S samir DWAINE/VEE HOOPER [id number] 2021 ADV CHOICE PPO 00:00:00 [facility] [id number] (MEDICARE REPLACEMENT/ADVANTA GE - PPO) UHC MEDICARE [id number] 2020 COMPLETE CHOICE 00:00:00 [facility] [id number] ALL SAVERS [id number] 2020 00:00:00 Problems Condition Condition Condition Status Onset Resolution Last Treating Co mments Source Name Details Category Date Date Treatment Clinician Date Status Status Disease Active Univers post post 6-30 [place] implant[place] implantabl Br anch e loop e loop recorder recorder Primary Primary Disease Active Univers hypertensi hypertensi 6-30 it y of on on 00:00: [place] [facility] History of 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 00:00: [place] stroke stroke 00 [facility] Medicare Medicare Disease Active Unive rs annual annual 2-28 ity of wellness wellness 00:00: [place] visit, visit, 00 Medical subsequent subsequent Br anch Other Other Disease Active Univers problems problems 2-28 [place] 00 [facility] Need for Need for Disease Active Unive rs pneumococc pneumococc 2-28 it y of al al 00:00: [place] vaccinatio vaccinatio 00 Me dical n n Branch HTN HTN Disease Recurre 2020-[address] [facility] [address] (hypertens (hypertens nce -30 Josy kes ion) ion) 00:00: Medical 00 [place] Cerebral Cerebral Disease Active 2020[facility]06 [facility] 00 [place] Stroke Stroke Disease Recurre 2020-[address] [facility] 07[facility]10 [facility] 00:[facility]: Medical 00 [place] Body mass Body mass Problem Active Com mon index index Spirit (BMI) of (BMI) of - [facility] 26[facility] 26.9 in 26.9 in [facility] Cardiac Cardiac Problem Active Common arrhythmia arrhythmia Sp karuna , , - [facility] unspecifie unspecif[facility] d cardiac d cardiac [place] s arrhythmia arrhythmia Me dical type type Center Overweight Overweight Problem Active C [facility] High blood High blood Problem Active C [facility] pressure pressure [facility] Elevated Elevated Problem Active Commo n BP without BP without Sp karuna diagnosis diagnosis - [facility] I of of St hypertensi hypertensi Josy kes on on [facility] Abnormal Abnormal Problem Active Commo n CBC CBC [facility] No known No known Disease Unive rs active active ity of problems problems [facility] Allergies, Adverse Reactions, Alerts Allergy Allergy Status Severity Reaction(s) Onset Inactive Treating Comm ents Source Name Type Date Date Clinician NO KNOWN Allergy Active [facility] NO KNOWN Drug Active Univers ALLERGIE Class ity of S [facility] Social History Social Habit Start Date Stop Date Quantity Comments Source History SDOH University o f Alcohol Comment [place] Med ical Branch History [facility] University o f Alcohol Std Drinks [place] [facility] History [facility] University o f Alcohol Binge [place] [facility] Gender identity [facility] Sexual orientation [facility] History of Social 2022-12-09 2022-12-09 Univers ity of function 00:00:00 00:00:00 [facility] Alcohol intake 2022-12-09 2022-12-09 Lifetime University of 00:00:00 00:00:00 non-drinker [facility] (finding) Branch Exposure to 2022-08-02 2022-08-12 Not sure University of SARS-CoV-2 (event) 00:00:00 07:58:00 [facility] Tobacco use and 2022-02-08 2022-02-08 Smokeless Universit y of exposure 00:00:00 00:00:00 tobacco non-user [facility] dical Branch History SDOH 2020-08-10 2020-08-10 1 University o f Alcohol Frequency 00:00:00 00:00:00 [facility] edical Branch Sex Assigned At [address] Josy jones 00:00:00 00:00:00 Medical Center Smoking Status Start Date Stop Date Source Tobacco smoking consumption [facility] unknown Never smoked tobacco [facility] Medications Ordered Filled Start Stop Current Ordering Indication Dosage Frequency Signature Comments Components Source Medication Medication Date Date Medication? Clinician (SIG) Name Name CLOPIDOGREL 3-0 Yes [id number] TAKE 1 Univers 75 mg 7-26 TABLET BY ity of tablet 00:00: MOUTH [place] 00 EVERY DAY Medical Branch CLOPIDOGREL 2023-0 Yes [id number] TAKE 1 Univers 75 mg 4-07 TABLET BY ity of tablet 00:00: MOUTH [place] 00 EVERY DAY Medical Branch CLOPIDOGREL 2023-0 Yes [id number] TAKE 1 Univers 75 mg 4-07 TABLET BY ity of tablet 00:00: MOUTH [place] 00 EVERY DAY Medical Branch CLOPIDOGREL 2023-0 Yes [id number] TAKE 1 Univers 75 mg 4-07 TABLET BY ity of tablet 00:00: MOUTH [place] 00 EVERY DAY Medical Branch CLOPIDOGREL 2023-0 Yes [id number] TAKE 1 Univers 75 mg 4-07 TABLET BY ity of tablet 00:00: MOUTH [place] 00 EVERY DAY Medical Branch CLOPIDOGREL 2023-0 Yes [id number] TAKE 1 Univers 75 mg 4-07 TABLET BY ity of tablet 00:00: MOUTH [place] 00 EVERY DAY Medical Branch CLOPIDOGREL 2023-0 Yes [id number] TAKE 1 Univers 75 mg 4-07 TABLET BY ity of tablet 00:00: MOUTH [place] 00 EVERY DAY Medical Branch CLOPIDOGREL 2023-0 Yes [id number] TAKE 1 Univers 75 mg 4-07 TABLET BY ity of tablet 00:00: MOUTH [place] 00 EVERY DAY Medical Branch CLOPIDOGREL 2023-0 2023- No [id number] TAKE 1 Univers 75 mg 4-07 07-26 TABLET BY ity of tablet 00:00: 00:00 MOUTH [place] 00 :00 EVERY DAY Medical Branch amLODIPine 3-0 Yes [id number] 5mg Take 1 U nivers 5 mg tablet 3-31 tablet by ity of 00:00: mouth in [place] the Medical morning. Branch amLODIPine 3-0 Yes [id number] 5mg Take 1 U nivers 5 mg tablet 3-31 tablet by ity of 00:00: mouth in [place] the Medical morning. Branch amLODIPine 2023-0 Yes [id number] 5mg Take 1 U nivers 5 mg tablet 3-31 tablet by ity of 00:00: mouth in [place] the Medical morning. Branch amLODIPine 2023-0 Yes [id number] 5mg Take 1 U nivers 5 mg tablet 3-31 tablet by ity of 00:00: mouth in [place] the Medical morning. Branch amLODIPine 3-0 Yes [id number] 5mg Take 1 U nivers 5 mg tablet 3-31 tablet by ity of 00:00: mouth in [place] the Medical morning. Branch amLODIPine 3-0 Yes [id number] 5mg Take 1 U nivers 5 mg tablet 3-31 tablet by ity of 00:00: mouth in [place] the Medical morning. Branch amLODIPine 3-0 Yes [id number] 5mg Take 1 U nivers 5 mg tablet 3-31 tablet by ity of 00:00: mouth in [place] the Medical morning. Branch amLODIPine 3-0 Yes [id number] 5mg Take 1 U nivers 5 mg tablet 3-31 tablet by ity of 00:00: mouth in [place] the Medical morning. Branch amLODIPine 3-0 Yes [id number] 5mg Take 1 U nivers 5 mg tablet 3-31 tablet by ity of 00:00: mouth in [place] the Medical morning. Branch calcium 0 Yes Vitamin D Unive rs carbonate/v 2-27 ity of itamin D3 16:22: [place] (VITAMIN 52 Medical D-3 ORAL) Branch MAGNESIUM 0 Yes Magnesium Uni vers ORAL 2-27 ity of 16:22: [address] Branch ZINC ORAL 2022-0 Yes Zinc Univers 2-27 ity of 16:22: [address] Branch calcium 2022-0 Yes Vitamin D Unive rs carbonate/v 2-27 ity of itamin D3 16:22: [place] (VITAMIN 52 Medical D-3 ORAL) Branch MAGNESIUM 2022-0 Yes Magnesium Uni vers ORAL 2-27 ity of 16:22: [address] ZINC ORAL Yes Zinc Univers 2-27 ity of 16:22: [address] calcium Yes Vitamin D Unive rs carbonate/v 2-27 ity of itamin D3 16:22: [place] (VITAMIN 52 Medical D-3 ORAL) [place] MAGNESIUM Yes Magnesium Uni vers ORAL 2-27 ity of 16:22: [address] ZINC ORAL Yes Zinc Univers 2-27 ity of 16:22: [address] calcium Yes Vitamin D Unive rs carbonate/v 2-27 ity of itamin D3 16:22: [place] (VITAMIN 52 Medical D-3 ORAL) [place] MAGNESIUM Yes Magnesium Uni vers ORAL 2-27 ity of 16:22: [address] ZINC ORAL Yes Zinc Univers 2-27 ity of 16:22: [address] calcium Yes Vitamin D Unive rs carbonate/v 2-27 ity of itamin D3 16:22: [place] (VITAMIN 52 Medical D-3 ORAL) [place] MAGNESIUM Yes Magnesium Uni vers ORAL 2-27 ity of 16:22: [address] ZINC ORAL Yes Zinc Univers 2-27 ity of 16:22: [address] calcium Yes Vitamin D Unive rs carbonate/v 2-27 ity of itamin D3 16:22: [place] (VITAMIN 52 Medical D-3 ORAL) [place] MAGNESIUM Yes Magnesium Uni vers ORAL 2-27 ity of 16:22: [address] ZINC ORAL Yes Zinc Univers 2-27 ity of 16:22: [address] calcium Yes Vitamin D Unive rs carbonate/v 2-27 ity of itamin D3 16:22: [place] (VITAMIN 52 Medical D-3 ORAL) [place] MAGNESIUM Yes Magnesium Uni vers ORAL 2-27 ity of 16:22: [address] ZINC ORAL 0 Yes Zinc Univers 2-27 ity of 16:22: [address] calcium Yes Vitamin D Unive rs carbonate/v 2-27 ity of itamin D3 16:22: [place] (VITAMIN 52 Medical D-3 ORAL) [place] MAGNESIUM Yes Magnesium Uni vers ORAL 2-27 ity of 16:22: [address] ZINC ORAL Yes Zinc Univers 2-27 ity of 16:22: [address] calcium Yes Vitamin D Unive rs carbonate/v 2-27 ity of itamin D3 16:22: [place] (VITAMIN Medical D-3 ORAL) [place] MAGNESIUM Yes Magnesium Uni vers ORAL 2-27 ity of 16:22: [address] ZINC ORAL Yes Zinc Univers 2-27 ity of 16:22: [address] calcium Yes Vitamin D Unive rs carbonate/v 2-27 ity of itamin D3 16:22: [place] (VITAMIN 52 Medical D-3 ORAL) [place] MAGNESIUM Yes Magnesium Uni vers ORAL 2-27 ity of 16:22: [address] ZINC ORAL Yes Zinc Univers 2-27 ity of 16:22: [address] calcium Yes Vitamin D Unive rs carbonate/v 2-27 ity of itamin D3 16:22: [place] (VITAMIN Medical D-3 ORAL) [place] MAGNESIUM Yes Magnesium Uni vers ORAL 2-27 ity of 16:22: [address] ZINC ORAL Yes Zinc Univers 2-27 ity of 16:22: [address] calcium Yes Vitamin D Unive rs carbonate/v 2-27 ity of itamin D3 16:22: [place] (VITAMIN Medical D-3 ORAL) [place] MAGNESIUM Yes Magnesium Uni vers ORAL 2-27 ity of 16:22: [address] ZINC ORAL Yes Zinc Univers 2-27 ity of 16:22: [address] calcium Yes Vitamin D Unive rs carbonate/v 2-27 ity of itamin D3 16:22: [place] (VITAMIN 52 Medical D-3 ORAL) [place] MAGNESIUM Yes Magnesium Uni vers ORAL 2-27 ity of 16:22: [address] ZINC ORAL Yes Zinc Univers 2-27 ity of 16:22: [address] CLOPIDOGREL Yes TAKE 1 Univ ers 75 mg 1-09 TABLET BY ity of tablet 00:00: MOUTH [place] 00 EVERY DAY [facility] CLOPIDOGREL Yes TAKE 1 Univ ers 75 mg 1-09 TABLET BY ity of tablet 00:00: MOUTH [place] 00 EVERY DAY Medical Branch CLOPIDOGREL 2023-0 Yes TAKE 1 Univ ers 75 mg 1-09 TABLET BY ity of tablet 00:00: MOUTH [place] 00 EVERY DAY Medical Branch CLOPIDOGREL 2023-0 Yes TAKE 1 Univ ers 75 mg 1-09 TABLET BY ity of tablet 00:00: MOUTH [place] 00 EVERY DAY Medical Branch CLOPIDOGREL 2023-0 Yes TAKE 1 Univ ers 75 mg 1-09 TABLET BY ity of tablet 00:00: MOUTH [place] 00 EVERY DAY Medical Branch CLOPIDOGREL 2023-0 Yes TAKE 1 Univ ers 75 mg 1-09 TABLET BY ity of tablet 00:00: MOUTH [place] 00 EVERY DAY Medical Branch CLOPIDOGREL 2023-0 Yes TAKE 1 Univ ers 75 mg 1-09 TABLET BY ity of tablet 00:00: MOUTH [place] 00 EVERY DAY Medical Branch CLOPIDOGREL 2023-0 2023- No TAKE 1 Uni vers 75 mg 1-09 04-07 TABLET BY ity of tablet 00:00: 00:00 MOUTH [place] 00 :00 EVERY DAY Medical Branch CLOPIDOGREL 2022-1 Yes TAKE 1 Univ ers 75 mg 0-12 TABLET BY ity of tablet 00:00: MOUTH [place] 00 EVERY DAY Medical Branch CLOPIDOGREL 2022-1 Yes TAKE 1 Univ ers 75 mg 0-12 TABLET BY ity of tablet 00:00: MOUTH [place] 00 EVERY DAY Medical Branch CLOPIDOGREL 2022-1 Yes TAKE 1 Univ ers 75 mg 0-12 TABLET BY ity of tablet 00:00: MOUTH [place] 00 EVERY DAY Medical Branch hyaluronate 2021-0 2- No [id number] 16mg Univers (SYNVISC) [id number] [id number] ity of injection 20:15: 19:18 [place] 16 mg 00 :00 Medical Branch hyaluronate 2-0 2021- No [id number] 16mg 16 mg, Univers (SYNVISC) [id number] [id number] Intra-morteza ity of injection 20:15: 19:18 cular, [place] 16 mg 00 :00 ONCE, 1 Medical dose, On Branch Tu 02/15/22 at 1515, Routine atorvastati 2021-0 Yes 40mg Take 1 Univ ers n 40 mg 7-19 tablet by ity of tablet 00:00: mouth [place] 00 every Medical evening. Branch atorvastati 2021-0 Yes 40mg Take 1 Univ ers n 40 mg 7-19 tablet by ity of tablet 00:00: mouth [place] 00 every Medical evening. Branch atorvastati 2021-0 Yes 40mg Take 1 Univ ers n 40 mg 7-19 tablet by ity of tablet 00:00: mouth [place] 00 every Medical evening. Branch atorvastati 2021-0 Yes 40mg Take 1 Univ ers n 40 mg 7-19 tablet by ity of tablet 00:00: mouth [place] 00 every Medical evening. Branch atorvastati 2021-0 Yes 40mg Take 1 Univ ers n 40 mg 7-19 tablet by ity of tablet 00:00: mouth [place] 00 every Medical evening. Branch atorvastati 2021-0 Yes 40mg Take 1 Univ ers n 40 mg 7-19 tablet by ity of tablet 00:00: mouth [place] 00 every Medical evening. Branch atorvastati 2021-0 Yes 40mg Take 1 Univ ers n 40 mg 7-19 tablet by ity of tablet 00:00: mouth [place] 00 every Medical evening. Branch atorvastati 2021-0 3- No 40mg Take 1 Uni vers n 40 mg 7-19 -27 tablet by ity of tablet 00:00: 00:00 mouth [place] 00 :00 every Medical evening. Branch atorvastati 2021-0 3- No 40mg Take 1 Uni vers n 40 mg 7-19 -27 tablet by ity of tablet 00:00: 00:00 mouth [place] 00 :00 every Medical evening. Branch amLODIPine 2021-0 Yes [id number] 5mg Take 1 U nivers 5 mg tablet 6-01 tablet by ity of 00:00: mouth [place] 00 daily. Medical Branch amLODIPine 2-0 Yes [id number] 5mg Take 1 U nivers 5 mg tablet 6-01 tablet by ity of 00:00: mouth [place] 00 daily. Medical Branch amLODIPine 2-0 Yes [id number] 5mg Take 1 U nivers 5 mg tablet 6-01 tablet by ity of 00:00: mouth [place] 00 daily. Medical Branch amLODIPine 2-0 Yes [id number] 5mg Take 1 U nivers 5 mg tablet 6-01 tablet by ity of 00:00: mouth [place] 00 daily. Medical Branch amLODIPine 2-0 Yes [id number] 5mg Take 1 U nivers 5 mg tablet 6-01 tablet by ity of 00:00: mouth [place] 00 daily. Medical Branch amLODIPine 2-0 Yes [id number] 5mg Take 1 U nivers 5 mg tablet 6-01 tablet by ity of 00:00: mouth [place] 00 daily. Medical Branch amLODIPine 2-0 Yes [id number] 5mg Take 1 U nivers 5 mg tablet 6-01 tablet by ity of 00:00: mouth [place] 00 daily. Medical Branch amLODIPine 2-0 Yes [id number] 5mg Take 1 U nivers 5 mg tablet 6-01 tablet by ity of 00:00: mouth [place] 00 daily. Medical Branch amLODIPine 2-0 Yes [id number] 5mg Take 1 U nivers 5 mg tablet 6-01 tablet by ity of 00:00: mouth [place] 00 daily. Medical Branch amLODIPine 2021-0 Yes [id number] 5mg Take 1 U nivers 5 mg tablet 6-01 tablet by ity of 00:00: mouth [place] 00 daily. Medical Branch amLODIPine 2021-0 Yes [id number] 5mg Take 1 U nivers 5 mg tablet 6-01 tablet by ity of 00:00: mouth [place] 00 daily. Medical Branch amLODIPine 2021-0 Yes [id number] 5mg Take 1 U nivers 5 mg tablet 6-01 tablet by ity of 00:00: mouth [place] 00 daily. Medical Branch amLODIPine 2021-0 3- No [id number] 5mg Take 1 Univers 5 mg tablet 6-01 -31 tablet by it y of 00:00: 00:00 mouth [place] 00 :00 daily. Medical Branch atorvastati 2-0 Yes 40mg Take 1 Univ ers n 40 mg 4-12 tablet by ity of tablet 00:00: mouth at [place] 00 bedtime. Medical Branch atorvastati 2-0 Yes 40mg Take 1 Univ ers n 40 mg 4-12 tablet by ity of tablet 00:00: mouth at [place] 00 bedtime. Medical Branch atorvastati 2-0 Yes 40mg Take 1 Univ ers n 40 mg 4-12 tablet by ity of tablet 00:00: mouth at [place] 00 bedtime. Medical Branch atorvastati 2-0 Yes 40mg Take 1 Univ ers n 40 mg 4-12 tablet by ity of tablet 00:00: mouth at [place] 00 bedtime. Medical Branch atorvastati 2-0 Yes 40mg Take 1 Univ ers n 40 mg 4-12 tablet by ity of tablet 00:00: mouth at [place] 00 bedtime. Medical Branch atorvastati 2-0 Yes 40mg Take 1 Univ ers n 40 mg 4-12 tablet by ity of tablet 00:00: mouth at [place] 00 bedtime. Medical Branch atorvastati 2-0 Yes 40mg Take 1 Univ ers n 40 mg 4-12 tablet by ity of tablet 00:00: mouth at [place] 00 bedtime. Medical Branch atorvastati 2-0 2023- No 40mg Take 1 Uni vers n 40 mg 4-12 -27 tablet by ity of tablet 00:00: 00:00 mouth at [place] 00 :00 bedtime. Medical Branch atorvastati 2021-0 3- No 40mg Take 1 Uni vers n 40 mg 4-12 -27 tablet by ity of tablet 00:00: 00:00 mouth at [place] 00 :00 bedtime. Medical Branch clopidogreL 2022-0 Yes 75mg Take 1 Univ ers 75 mg 1-19 tablet by ity of tablet 00:00: mouth [place] 00 daily. Medical Branch clopidogreL 2022-0 Yes 75mg Take 1 Univ ers 75 mg 1-19 tablet by ity of tablet 00:00: mouth [place] 00 daily. Medical Branch clopidogreL 2022-0 2022- No 75mg Take 1 Uni vers 75 mg 1-19 10-12 tablet by ity of tablet 00:00: 00:00 mouth [place] 00 :00 daily. Medical Branch aspirin 81 2-0 Yes 81mg Take 1 Unive rs mg EC 1-12 tablet by ity of tablet 00:00: mouth [place] 00 daily. Medical Branch aspirin 81 2022-0 Yes 81mg Take 1 Unive rs mg EC 1-12 tablet by ity of tablet 00:00: mouth [place] 00 daily. Medical Branch aspirin 81 2022-0 Yes 81mg Take 1 Unive rs mg EC 1-12 tablet by ity of tablet 00:00: mouth [place] 00 daily. Medical Branch aspirin 81 2022-0 Yes 81mg Take 1 Unive rs mg EC 1-12 tablet by ity of tablet 00:00: mouth [place] 00 daily. Medical Branch aspirin 81 2022-0 Yes 81mg Take 1 Unive rs mg EC 1-12 tablet by ity of tablet 00:00: mouth [place] 00 daily. Medical Branch aspirin 81 2022-0 Yes 81mg Take 1 Unive rs mg EC 1-12 tablet by ity of tablet 00:00: mouth [place] 00 daily. Medical Branch aspirin 81 2022-0 Yes 81mg Take 1 Unive rs mg EC 1-12 tablet by ity of tablet 00:00: mouth [place] 00 daily. Medical Branch aspirin 81 2022-0 Yes 81mg Take 1 Unive rs mg EC 1-12 tablet by ity of tablet 00:00: mouth [place] 00 daily. Medical Branch aspirin 81 2022-0 Yes 81mg Take 1 Unive rs mg EC 1-12 tablet by ity of tablet 00:00: mouth [place] 00 daily. Medical Branch aspirin 81 2022-0 Yes 81mg Take 1 Unive rs mg EC 1-12 tablet by ity of tablet 00:00: mouth [place] 00 daily. Medical Branch aspirin 81 2022-0 Yes 81mg Take 1 Unive rs mg EC 1-12 tablet by ity of tablet 00:00: mouth [place] 00 daily. Medical Branch aspirin 81 2022-0 Yes 81mg Take 1 Unive rs mg EC 1-12 tablet by ity of tablet 00:00: mouth [place] 00 daily. Medical Branch aspirin 81 2022-0 Yes 81mg Take 1 Unive rs mg EC 1-12 tablet by ity of tablet 00:00: mouth [place] 00 daily. Medical Branch aspirin 81 2022-0 Yes 81mg Take 1 Unive rs mg EC 1-12 tablet by ity of tablet 00:00: mouth [place] 00 daily. Medical Branch aspirin 81 2022-0 Yes 81mg Take 1 Unive rs mg EC 1-12 tablet by ity of tablet 00:00: mouth [place] 00 daily. Medical Branch aspirin 81 2022-0 Yes 81mg Take 1 Unive rs mg EC 1-12 tablet by ity of tablet 00:00: mouth [place] 00 daily. Medical Branch aspirin 81 2022-0 Yes 81mg Take 1 Unive rs mg EC 1-12 tablet by ity of tablet 00:00: mouth [place] 00 daily. Medical Branch aspirin 81 2022-0 Yes 81mg Take 1 Unive rs mg EC 1-12 tablet by ity of tablet 00:00: mouth [place] 00 daily. Medical Branch aspirin 81 2022-0 Yes 81mg Take 1 Unive rs mg EC 1-12 tablet by ity of tablet 00:00: mouth [place] 00 daily. Medical Branch aspirin 81 2021-0 Yes 81mg Take 1 Unive rs mg EC 1-12 tablet by ity of tablet 00:00: mouth [place] 00 daily. Medical Branch aspirin 81 2021-0 Yes 81mg Take 1 Unive rs mg EC 1-12 tablet by ity of tablet 00:00: mouth [place] 00 daily. Medical Branch cyanocobala 0 Yes Take by Uni vers min, 1-03 mouth ity of vitamin 14:47: daily. [place] [id number], 48 Medical (VITAMIN Branch B-12 ORAL) cyanocobala 0 Yes Take by Uni vers min, 1-03 mouth ity of vitamin 14:47: daily. [facility]-, 48 Medical (VITAMIN Branch B-12 ORAL) cyanocobala 0 Yes Take by Uni vers min, 1-03 mouth ity of vitamin 14:47: daily. [facility], 48 Medical (VITAMIN Branch B-12 ORAL) cyanocobala 0 Yes Take by Uni vers min, 1-03 mouth ity of vitamin 14:47: daily. [facility]-, 48 Medical (VITAMIN Branch B-12 ORAL) cyanocobala 0 Yes Take by Uni vers min, 1-03 mouth ity of vitamin 14:47: daily. [facility]-, 48 Medical (VITAMIN Branch B-12 ORAL) cyanocobala 0 Yes Take by Uni vers min, 1-03 mouth ity of vitamin 14:47: daily. [facility]-, 48 Medical (VITAMIN Branch B-12 ORAL) cyanocobala 0 Yes Take by Uni vers min, 1-03 mouth ity of vitamin 14:47: daily. [facility]-, 48 Medical (VITAMIN Branch B-12 ORAL) cyanocobala 0 Yes Take by Uni vers min, 1-03 mouth ity of vitamin 14:47: daily. [facility]-, 48 Medical (VITAMIN Branch B-12 ORAL) cyanocobala 0 Yes Take by Uni vers min, 1-03 mouth ity of vitamin 14:47: daily. [facility], 48 Medical (VITAMIN Branch B-12 ORAL) cyanocobala 2021-0 Yes Take by Uni vers min, 1-03 mouth ity of vitamin 14:47: daily. [place] B-12, 48 Medical (VITAMIN Branch B-12 ORAL) cyanocobala 0 Yes Take by Uni vers min, 1-03 mouth ity of vitamin 14:47: daily. [place] B-12, 48 Medical (VITAMIN Branch B-12 ORAL) cyanocobala 0 Yes Take by Uni vers min, 1-03 mouth ity of vitamin 14:47: daily. [place] B-12, 48 Medical (VITAMIN Branch B-12 ORAL) cyanocobala 0 Yes Take by Uni vers min, 1-03 mouth ity of vitamin 14:47: daily. [place] B-12, 48 Medical (VITAMIN Branch B-12 ORAL) cyanocobala 0 Yes Take by Uni vers min, 1-03 mouth ity of vitamin 14:47: daily. [place] B-12, 48 Medical (VITAMIN Branch B-12 ORAL) cyanocobala Yes Take by Uni vers min, 1-03 mouth ity of vitamin 14:47: daily. [place] B-12, 48 Medical (VITAMIN Branch B-12 ORAL) cyanocobala 0 Yes Take by Uni vers min, 1-03 mouth ity of vitamin 14:47: daily. [place] B-12, 48 Medical (VITAMIN Branch B-12 ORAL) cyanocobala 0 Yes Take by Uni vers min, 1-03 mouth ity of vitamin 14:47: daily. [place] B-12, 48 Medical (VITAMIN Branch B-12 ORAL) cyanocobala 0 Yes Take by Uni vers min, 1-03 mouth ity of vitamin 14:47: daily. [place] B-12, 48 Medical (VITAMIN Branch B-12 ORAL) cyanocobala 0 Yes Take by Uni vers min, 1-03 mouth ity of vitamin 14:47: daily. [place] B-12, 48 Medical (VITAMIN Branch B-12 ORAL) cyanocobala 0 Yes Take by Uni vers min, 1-03 mouth ity of vitamin 14:47: daily. [place] Frost-12, 48 Medical (VITAMIN Branch B-12 ORAL) cyanocobala 0 Yes Take by Uni vers min, 1-03 mouth ity of vitamin 14:47: daily. Gutierrez B-12, 48 Medical (VITAMIN Branch B-12 ORAL) aspirin 81 2020-06 Yes 81mg QD Take 1 [facility] (81 [facility] tablet 00:00: mg total) Medica l 00 by mouth Center daily. cyanocobala 2020-06 Yes 1000ug QD Take [address] [facility], 2-07 tablet [facility] vitamin 00:00: (1,000 mcg Medi pancho B-12, 1000 00 total) by Cent er MCG tablet mouth daily. atorvastati 2020-06 Yes 80mg QD Take [address] [facility] [facility] (LIPITOR) 2-06 tablet (80 Josy kes 80 MG 00:00: mg total) Medical tablet 00 by mouth Center nightly. senna-docus 2020-06 Yes 1{tbl} QD Take [address] ate 2-06 tablet by [facility] (SENOKOT S) 00:00: mouth Medic al 8.6-50 mg 00 nightly. Center per tablet acetaminoph 2020-06 Yes 650mg Take [address] [facility] 2-06 tablets [facility] (TYLENOL) 00:00: (650 mg Medic al 325 MG 00 total) by Center tablet mouth every 6 (six) hours as needed for Pain. Magnesium Magnesium Yes Marcella not Comm on Millender defined [facility] Zinc Zinc Yes Marcella not Common Millender defined [facility] Vitamin D Vitamin D Yes Marcella not Comm on Millender defined [facility] Immunizations Ordered Filled Immunization Date Status Comments [facility] e Immunization Name Name Pneumococcal 2022-08-08 Completed Universit y of Conjugate, PCV20 00:00:00 [facility] dical (Prevnar 20) Branch Pneumococcal 20 2022-08-08 Completed Universit y of Conjugate, PCV20 00:00:00 [facility] dical (Prevnar 20) Branch Pneumococcal 20 2022-08-08 Completed Universit y of Conjugate, PCV20 00:00:00 [facility] dical (Prevnar 20) Branch Pneumococcal 20 2022-08-08 Completed Universit y of Conjugate, PCV20 00:00:00 [facility] dical (Prevnar 20) Branch Pneumococcal 20 2022-08-08 Completed Universit y of Conjugate, PCV20 00:00:00 [facility] dical (Prevnar 20) Branch Pneumococcal 20 2022-08-08 Completed Universit y of Conjugate, PCV20 00:00:00 [place] dical (Prevnar 20) Branch Pneumococcal 20 2022-08-08 Completed Universit y of Conjugate, PCV20 00:00:00 [place] dical (Prevnar 20) Branch Pneumococcal 20 2022-08-08 Completed Universit y of Conjugate, PCV20 00:00:00 [place] [facility] dical (Prevnar 20) Branch Pneumococcal 20 2022-08-08 Completed Universit y of Conjugate, PCV20 00:00:00 [place] [facility] dical (Prevnar 20) Branch Pneumococcal 20 2022-08-08 Completed Universit y of Conjugate, PCV20 00:00:00 [place] [facility]ical (Prevnar 20) Branch Pneumococcal 20 2022-08-08 Completed Universit y of Conjugate, PCV20 00:00:00 [facility] dical (Prevnar 20) Branch Pneumococcal 20 2022-08-08 Completed Universit y of Conjugate, PCV20 00:00:00 [facility] dical (Prevnar 20) Branch Pneumococcal 20 2022-08-08 Completed Universit y of Conjugate, PCV20 00:00:00 [facility] dical (Prevnar 20) Branch SARS-COV-2 COVID-19 2020-08-29 Completed Unive rsity of PFIZER VACCINE 00:00:00 [facility] SARS-COV-2 COVID-19 2020-08-29 Completed Unive rsity of PFIZER VACCINE 00:00:00 [facility] SARS-COV-2 COVID-19 2020-08-29 Completed Unive rsity of PFIZER VACCINE 00:00:00 [facility] SARS-COV-2 COVID-19 2020-08-29 Completed Unive rsity of PFIZER VACCINE 00:00:00 [facility] SARS-COV-2 COVID-19 2020-08-29 Completed Unive rsity of PFIZER VACCINE 00:00:00 [facility] Branch SARS-COV-2 COVID-19 2020-08-29 Completed Unive rsity of PFIZER VACCINE 00:00:00 [facility] SARS-COV-2 COVID-19 2020-08-29 Completed Unive rsity of PFIZER VACCINE 00:00:00 [facility] SARS-COV-2 COVID-19 2020-08-29 Completed Unive rsity of PFIZER VACCINE 00:00:00 [facility] Branch SARS-COV-2 COVID-19 2020-08-29 Completed Unive rsity of PFIZER VACCINE 00:00:00 [facility] Branch SARS-COV-2 COVID-19 2020-08-29 Completed Unive rsity of PFIZER VACCINE 00:00:00 [facility] Branch SARS-COV-2 COVID-19 2020-08-29 Completed Unive rsity of PFIZER VACCINE 00:00:00 [facility] Branch SARS-COV-2 COVID-19 2020-08-29 Completed Unive rsity of PFIZER VACCINE 00:00:00 [facility] Branch SARS-COV-2 COVID-19 2020-08-29 Completed Unive rsity of PFIZER VACCINE 00:00:00 [facility] Branch SARS-COV-2 COVID-19 2020-08-29 Completed Unive rsity of PFIZER VACCINE 00:00:00 [facility] Branch SARS-COV-2 COVID-19 2020-08-29 Completed Unive rsity of PFIZER VACCINE 00:00:00 [facility] Branch SARS-COV-2 COVID-19 2020-08-29 Completed Unive rsity of PFIZER VACCINE 00:00:00 [facility] Branch SARS-COV-2 COVID-19 2020-08-29 Completed Unive rsity of PFIZER VACCINE 00:00:00 [facility] Branch SARS-COV-2 COVID-19 2020-08-29 Completed Unive rsity of PFIZER VACCINE 00:00:00 [facility] SARS-COV-2 COVID-19 2020-08-29 Completed Unive rsity of PFIZER VACCINE 00:00:00 [facility] Branch SARS-COV-2 COVID-19 2020-08-29 Completed Unive rsity of PFIZER VACCINE 00:00:00 [facility] Branch SARS-COV-2 COVID-19 2020-08-29 Completed Unive rsity of PFIZER VACCINE 00:00:00 [facility] Branch SARS-COV-2 COVID-19 2020-08-08 Completed Unive rsity of PFIZER VACCINE 00:00:00 [facility] SARS-COV-2 COVID-19 2020-08-08 Completed Unive rsity of PFIZER VACCINE 00:00:00 [facility] SARS-COV-2 COVID-19 2020-08-08 Completed Unive rsity of PFIZER VACCINE 00:00:00 [facility] Branch SARS-COV-2 COVID-19 2020-08-08 Completed Unive rsity of PFIZER VACCINE 00:00:00 [facility] Branch SARS-COV-2 COVID-19 2020-08-08 Completed Unive rsity of PFIZER VACCINE 00:00:00 [facility] Branch SARS-COV-2 COVID-19 2020-08-08 Completed Unive rsity of PFIZER VACCINE 00:00:00 [facility] Branch SARS-COV-2 COVID-19 2020-08-08 Completed Unive rsity of PFIZER VACCINE 00:00:00 [facility] Branch SARS-COV-2 COVID-19 2020-08-08 Completed Unive rsity of PFIZER VACCINE 00:00:00 [facility] Branch SARS-COV-2 COVID-19 2020-08-08 Completed Unive rsity of PFIZER VACCINE 00:00:00 [facility] Branch SARS-COV-2 COVID-19 2020-08-08 Completed Unive rsity of PFIZER VACCINE 00:00:00 [facility] Branch SARS-COV-2 COVID-19 2020-08-08 Completed Unive rsity of PFIZER VACCINE 00:00:00 [facility] Branch SARS-COV-2 COVID-19 2020-08-08 Completed Unive rsity of PFIZER VACCINE 00:00:00 [facility] Branch SARS-COV-2 COVID-19 2020-08-08 Completed Unive rsity of PFIZER VACCINE 00:00:00 [facility] Branch SARS-COV-2 COVID-19 2020-08-08 Completed Unive rsity of PFIZER VACCINE 00:00:00 [facility] Branch SARS-COV-2 COVID-19 2020-08-08 Completed Unive rsity of PFIZER VACCINE 00:00:00 [facility] Branch SARS-COV-2 COVID-19 2020-08-08 Completed Unive rsity of PFIZER VACCINE 00:00:00 [facility] Branch SARS-COV-2 COVID-19 2020-08-08 Completed Unive rsity of PFIZER VACCINE 00:00:00 [facility] Branch SARS-COV-2 COVID-19 2020-08-08 Completed Unive rsity of PFIZER VACCINE 00:00:00 [facility] SARS-COV-2 COVID-19 2020-08-08 Completed Unive rsity of PFIZER VACCINE 00:00:00 [facility] SARS-COV-2 COVID-19 2020-08-08 Completed Unive rsity of PFIZER VACCINE 00:00:00 [facility] SARS-COV-2 COVID-19 2020-08-08 Completed Unive rsity of PFIZER VACCINE 00:00:00 [facility] TDAP 2019-07-09 Completed University of 00:00:00 [facility] TDAP 2019-07-09 Completed University of 00:00:00 [facility] TDAP 2019-07-09 Completed University of 00:00:00 [facility] TDAP 2019-07-09 Completed University of 00:00:00 [facility] TDAP 2019-07-09 Completed University of 00:00:00 [facility] TDAP 2019-07-09 Completed University of 00:00:00 [facility] TDAP 2019-07-09 Completed University of 00:00:00 [facility] TDAP 2019-07-09 Completed University of 00:00:00 [facility] TDAP 2019-07-09 Completed University of 00:00:00 [facility] TDAP 2019-07-09 Completed University of 00:00:00 [facility] TDAP 2019-07-09 Completed University of 00:00:00 [facility] TDAP 2019-07-09 Completed University of 00:00:00 [facility] TDAP 2019-07-09 Completed University of 00:00:00 [facility] TDAP 2019-07-09 Completed University of 00:00:00 [facility] Vital Signs Vital Name Observation Time Observation Value Comments Source Systolic blood 2022-12-09 15:41:00 134 mm[Hg] Univer sity of pressure [facility] Diastolic blood 2022-12-09 15:41:00 85 mm[Hg] Unive rsity of pressure [facility] Heart rate 2022-12-09 15:41:00 61 /min [facility] Respiratory rate 2022-12-09 15:41:00 18 /min Univ ersity of [facility] Body height 2022-12-09 15:41:00 172.7 cm [facility] Body weight 2022-12-09 15:41:00 80.967 kg [facility] Branch BMI 2022-12-09 15:41:00 27.14 kg/m2 [facility] Oxygen saturation in 2022-12-09 15:41:00 96 /min University of Arterial blood by [facility] Pulse oximetry Branch Systolic blood 2022-08-08 22:17:00 132 mm[Hg] Univer sity of pressure [facility] Diastolic blood 2022-08-08 22:17:00 83 mm[Hg] Unive rsity of pressure [facility] Heart rate 2022-08-08 22:17:00 62 /min [facility] Body temperature 2022-08-08 22:17:00 36.5 Jada Univ [facility] Body height 2022-08-08 22:17:00 172.7 cm [facility] Body weight 2022-08-08 22:17:00 80.74 kg [facility] BMI 2022-08-08 22:17:00 27.06 kg/m2 [facility] Oxygen saturation in 2022-08-08 22:17:00 98 /min University of Arterial blood by [facility] Pulse oximetry Branch Systolic blood 2022-02-15 19:16:00 131 mm[Hg] Univer sity of pressure [facility] Diastolic blood 2022-02-15 19:16:00 81 mm[Hg] Unive rsity of pressure [facility] Heart rate 2022-02-15 19:16:00 56 /min [facility] Respiratory rate 2022-02-15 19:16:00 17 /min Univ [facility] Body height 2022-02-15 19:16:00 172.7 cm [facility] Body weight 2022-02-15 19:16:00 79.833 kg [facility] BMI 2022-02-15 19:16:00 26.76 kg/m2 [facility] HEIGHT 2021-05-12 11:51:00 172.7 cm WEIGHT 2021-05-10 10:45:00 76.975 kg HEIGHT 2021-05-12 11:51:00 172.7 cm WEIGHT 2021-05-10 10:45:00 76.975 kg Procedures Procedure Date / Time Performing Clinician Source Performed ASSIGNMENT OF BENEFITS 2022-12-09 14:57:20 Doctor Unassigned, No [facility] Name Medical Branch PNEUMOCOCCAL 20 2022-08-08 22:50:41 Noam Smith [place] o f [place] CONJUGATE (PREVNAR 20) Medical B ranch VACCINE Plan of Care Planned Activity Planned Date Details Comments Source Future Scheduled 2023-02-10 Influenza Vaccine (#1) [facility] 00:00:00 [code = Influenza Medical Ce nter Vaccine (#1)] Future Scheduled 2023-01-16 SHINGLES VACCINES (1 Met [facility] Test 06:31:32 of 2) [code = SHINGLES VACCINES (1 of 2)] Future Scheduled 2023-01-16 65[facility] 06:31:32 VACCINE (1 - PCV) [code = 65+ PNEUMOCOCCAL VACCINE (1 - PCV)] Future Scheduled 2023-01-16 COVID-19 VACCINE (3 - [facility] 06:31:32 Pfizer series) [code = COVID-19 VACCINE (3 - Pfizer series)] Future Scheduled 2023-01-16 INFLUENZA VACCINE [facility] 06:31:32 [code = INFLUENZA VACCINE] Future Scheduled 2022-06-[address] [facility] Test 00:00:00 (12+) [code = Medical Center DEPRESSION SCREENING (12+)] Future Scheduled 2022-06-12 FALLS RISK SCREENING [facility] Test 00:00:00 [code = FALLS RISK Medical C enter SCREENING] Future Scheduled 2021-06-[address] [facility] Test 00:00:00 WELLNESS (YEAR 2 or Medical Center FIRST YEAR if no IPPE) [code = MEDICARE ANNUAL WELLNESS (YEAR 2 or FIRST YEAR if no IPPE)] Future Scheduled 2007 PNEUMOCOCCAL 65+ YRS [facility] Test 00:00:00 (1 - PCV) [code = Medical Ce nter PNEUMOCOCCAL 65+ YRS (1 - PCV)] Future Scheduled 1992-02-02 SHINGLES VACCINES ([address] [facility] Test 00:00:00 of 2) [code = SHINGLES Medic al Center VACCINES (1 of 2)] Future Scheduled 1961 DTAP/TDAP/TD VACCINES [facility] Test 00:00:00 (1 - Tdap) [code = Medical C enter DTAP/TDAP/TD VACCINES (1 - Tdap)] Future Scheduled [address] [facility] Test 00:00:00 Counseling and Medical Cente r Screening (12+) [code = Tobacco Cessation Counseling and Screening (12+)] Future Scheduled 1942 COVID-19 VACCINE (#1) [facility] Test 00:00:00 [code = COVID-[address] VACCINE (#1)] Encounters Start End Encounter Admission Attending Care Care Encounter Source Date/Time Date/Time Type Type Clinicians Facility Department ID 2021-07-08 Outpatient [id number] [facility] REF [id number] [facility] 13:25:40 [facility] [place] 2021-07-07 Outpatient Lmender, [facility] [id number] Common 11:36:50 Marcella [id number] [facility] 2021-07-07 Outpatient Millender, [facility] [id number] Common 11:07:42 Marcella 48885 [facility] 2021-07-07 Outpatient [facility], [facility] [id number] Common 11:07:22 Marcella 97114 [facility] 2023-12-07 2023-12-07 Outpatient Tahira RIOJAS [facility] [id number] Univers 10:00:00 10:00:00 APRYL lockett o f [facility] 2023-01-04 2023-01-[address] [facility] 1.2.840.114 [id number] Univers 00:00:00 00:00:00 [facility] [id number] it y of [place] [id number] Sathish as AKBAR?BLEA [phone] Ar dical [address] MEDICAL OFFICE BUILDING 2022-12-26 2022-12-26 Outpatient FOG_Stocks_ AOSM AOSM [id number] Margoth 00:00:00 00:00:00 Rebecca [id number] Orth ope dic Sports Medicin e 2022-12-16 2022-12-16 Telephone Casey [facility] 1.2.840.114 [id number] Univers 00:00:00 00:00:00 Jasonkasie BECK [id number] ity of [facility] [id number] [phone] Ar dical NAL 844 [facility] 2022-12-09 2022-12-09 [facility] [id number] Univers 10:40:00 10:54:58 HUGORADHA ity o f [facility] 2022-12-09 2022-12-09 Office [facility] 1.2.840.114 [id number] Univers 10:40:00 10:54:58 Visit Apryl SOLARES [id number] ity [facility] [id number] [id number] [facility] NAL 059 [facility] 2022-12-09 2022-12-09 Orders Doctor BROWNLEE 1.2.840.114 [id number] Univers 00:00:00 00:00:00 Only Unassigned, RICHA [id number] [facility] [id number] Sathish as [phone] [facility] 009 Branch 2022-10-28 2022-10-28 Outpatient R VANIA COLON [facility] [id number] Univers 00:00:00 23:59:00 VANIA COLON ity of [facility] 2022-10-28 2022-10-28 [facility] CHRIS Colon 1.2.840.114 [id number] Univers 00:00:00 23:59:00 Encounter Christina CHAUDHRY [id number] ity of [facility] [id number] Sathish as [phone] [facility] [address] [place] 2022-09-28 2022-09-28 Outpatient R VANIA COLON [facility] [id number] Univers 00:00:00 23:59:00 VANIA COLON ity of [facility] 2022-09-28 2022-09-28 [facility] CHRIS Colon 1.2.840.114 [id number] Univers 00:00:00 23:59:00 Encounter Christina CHAUDHRY [id number] ity of [facility] [id number] Sathish as [phone] [address] 2022-09-15 2022-09-[address] [facility] 1.2.840.114 [id number] Univers 00:00:00 00:00:00 [facility] [id number] it y of [place] [id number] Sathish as AKBAR?BLEA [id number] Ar dical [facility] [address] MEDICAL OFFICE [facility] 2022-09-09 2022-09-09 [facility] [address] [facility] [facility] 1.2.840.114 [id number] Univers 00:00:00 00:00:00 Qiaradha [place] [id number] ity [id number] E[place] [id number] Ar dical NAL 059 [facility] 2022-08-29 2022-08-29 Outpatient R SHASHI [facility] [id number] Univers 00:00:00 23:59:00 NICOLAS ity of [facility] 2022-08-29 2022-08-29 [facility] Shashi CHRIS 1.2.840.114 [id number] Univers 00:00:00 23:59:00 Encounter Nicolas CHAUDHRY [id number] ity of [facility] [id number] Sathish as [id number] [address] 2022-08-12 2022-08-12 Director Of Child Welfare Services Lab, Ang - [facility] 1.2.840.1 [id number] Univers 09:45:00 10:00:00 Visit Tima Wills [facility] 350.1.13 .10 ity of [place] [id number] Sathish as AKBAR?BLEA [phone] Ar dical KNEY 353 [facility] OFFICE [facility] 2022-08-12 2022-08-12 Outpatient R ELMA [facility] [id number] Univers 09:45:00 09:31:50 TIMA lockett [facility] 2022-08-08 2022-08-08 [facility] [id number] Univers 16:30:00 17:15:27 NOAM ity [facility] 2022-08-08 2022-08-[address] [facility] 1.2.840.114 [id number] Univers 16:30:00 17:15:27 Visit Noam MARTÍNEZ 350.1.13.10 it y of [place] [id number] Sathish as AKBAR?BLEA [id number] [address] MEDICAL OFFICE BUILDING 2022-07-28 2022-07-28 [facility] [id number] Univers 00:00:00 23:59:00 NICOLAS ity [facility] 2022-07-28 2022-07-28 [facility] CHRIS Danielle 1.2.840.114 [id number] Univers 00:00:00 23:59:00 Encounter Nicolas RICHA 350.1.13.10 ity [place] [id number] Sathish as [phone] [facility] [address] 2022-06-28 2022-06-28 [facility] [id number] Univers 00:00:00 23:59:00 NICOLAS ity [facility] 2022-06-28 2022-06-28 [facility] CHRIS Danielle 1.2.840.114 [id number] Univers 00:00:00 23:59:00 Encounter Nicolas RICHA 350.1.13.10 ity [place] [id number] Sathish as [id number] [place] 449734 [place] 2022-05-27 2022-05-27 [facility] [id number] Univers 00:00:00 23:59:00 NICOLAS ity [facility] 2022-05-27 2022-05-27 [facility] CHRIS Danielle 1.2.840.114 [id number] Univers 00:00:00 23:59:00 Encounter Nicolas RICHA 350.1.13.10 ity [place] [id number] Sathish as [id number] [address] 2022-04-27 2022-04-27 [facility] [id number] Univers 00:00:00 23:59:00 NICOLAS ity [facility] 2022-04-27 2022-04-27 [facility] CHRIS Danielle 1.2.840.114 [id number] Univers 00:00:00 23:59:00 Encounter Nicolas RICHA 350.1.13.10 ity [facility] [id number] Sathish as [id number] [address] 2022-03-28 2022-03-28 [facility] [id number] Univers 00:00:00 23:59:00 NICOLAS ity [facility] 2022-03-28 2022-03-28 [facility] CHRIS Danielle 1.2.840.114 [id number] Univers 00:00:00 23:59:00 Encounter Nicolas [place] 350.1.13.10 ity [facility] [id number] Sathish as [id number] [address] 2022-03-23 2022-03-[address] [facility] 1.2.840.114 [id number] Univers 00:00:00 00:00:00 [facility] 350.1.13.10 it y [facility] [id number] Sathish as AKBAR?BLEA [id number] Ar loyd[address] MEDICAL OFFICE BUILDING 2022-02-25 2022-02-25 Outpatient R SHASHI [facility] [id number] Univers 07:56:27 23:59:00 NICOLAS ity [facility] 2022-02-25 2022-02-25 Outpatient R SHASHI [facility] [id number] Univers 08:00:00 08:00:00 NICOLAS ity [facility] 2022-02-15 2022-02-15 Outpatient [facility] [id number] Univers 14:00:00 15:00:11 NADIYA ity [facility] 2022-02-15 2022-02-[address] [facility] 1.2.840.114 [id number] Univers 14:00:00 15:00:11 Visit [facility] HEALTH 350.1.13.10 it y of [place] [id number] Sathish as AKBAR?BLEA [id number] Ar huy ESPAÑA [address] [place] [address] 2022-02-11 2022-02-11 Outpatient R KARISSAGISELE [facility] [id number] Univers 11:20:00 23:59:00 [facility]22-[facility]-11 2022-02-11 [facility] [id number] Univers 11:20:00 11:20:00 [facility]22-[facility]-11 2022-02-[address] [facility] 1.2.840.114 [id number] Univers 00:00:00 00:00:00 [facility] [id number] it y of [place] [id number] Sathish as AKBAR?BLEA [id number] Ar huy ESPAÑA [address] [place] [address] 2022-02-10 2022-02-10 [facility] [id number] Univers 10:45:00 10:45:00 VENTURA lockett [facility] 2022-02-08 2022-02-08 Outpatient [facility] [id number] Univers 13:15:00 14:35:56 [facility] 2022-02-08 2022-02-[address] [facility] 1.2.840.114 [id number] Univers 13:15:00 14:35:56 Visit [facility] HEALTH 350.1.13.10 it y of [place] 4.2.7.2.686 Sathish as AKBAR?BLEA [id number] Ar huy ESPAÑA [address] [place] [address] 2022-01-31 2022-01-[address] [facility] 1.2.840.114 [id number] Univers 10:15:00 10:36:30 Visit [facility] HEALTH 350.1.13.10 it y of [place] 4.2.7.2.686 Sathish as AKBAR?BLEA [id number] Ar dical [address] OFFICE [facility] 2022-01-31 2022-01-31 Outpatient [facility] [id number] Univers 10:15:00 10:36:30 NADIYA ity [facility] 2022-01-31 2022-01-31 Outpatient [facility] [id number] Univers 10:15:00 10:36:30 NADIYA ity [facility] 2022-01-24 2022-01-24 Orders Doctor TORRIE 1.2.840.114 [id number] Univers 00:00:00 00:00:00 Only Unassigned, RICHA 350.1.13.10 ity of [place] [facility] 4.2.7.2.686 Sathish as [phone] [address] 2022-01-24 2022-01-24 Telephone [facility] 1.2.703.190 [id number] Univers 00:00:00 00:00:00 Nadiya S HEALTH 350.1.13.10 it y of [place] 4.2.7.2.686 Sathish as AKBAR?BLEA [phone] Ar huy [address] 2022-01-21 2022-01-21 Outpatient [facility] [id number] Univers 00:00:00 23:59:00 NICOLAS ity of [facility] 2022-01-21 2022-01-21 [facility] CHRIS Danielle 1.2.840.114 [id number] Univers 00:00:00 23:59:00 Encounter Nicolas RICHA 350.1.13.10 ity of HOSPITAL 4.2.7.2.686 Sathish as [phone] [facility] [address] 2022-01-07 2022-01-07 Orders Doctor TORRIE 1.2.840.114 [id number] Univers 00:00:00 00:00:00 Only Unassigned, RICHA 350.1.13.10 ity of [place] [facility] 4.2.7.2.686 Sathish as [phone] [facility] [address] 2022-01-07 2022-01-07 Telephone [facility] 1.2.572.326 [id number] Univers 00:00:00 00:00:00 Nadiya S HEALTH 350.1.13.10 it y of [place] 4.2.7.2.686 Sathish as AKBAR?BLEA [phone] Me dicclaudio ESPAÑA 198 [facility] OFFICE [facility] 2021-12-30 2021-12-30 Telephone Cali [facility] 1.2.837.446 [id number] Univers 00:00:00 00:00:00 Nadiya S HEALTH 350.1.13.10 it y of [place] 4.2.7.2.686 Sathish as AKBAR?BLEA [phone] Me huy ESPAÑA 198 [facility] 2021-12-28 2021-12-[address] [facility] 1.2.840.114 [id number] Univers 00:00:00 00:00:00 Tima HEALTH 350.1.13.10 it y of [place] 4.2.7.2.686 Sathish as AKBAR?BLEA [phone] Ar huy ESPAÑA 044 [facility] 2021-12-22 2021-12-22 Outpatient SHASHI [facility] [id number] Univers 00:00:00 23:59:00 NICOLAS ity of [facility] 2021-12-22 2021-12-22 Hospital HCRIS Danielle 1.2.840.114 [id number] Univers 00:00:00 23:59:00 Encounter Nicolas RICHA 350.1.13.10 ity of [facility] 4.2.7.2.686 Satihsh as [phone] [facility] [address] 2021-12-22 2021-12-22 Outpatient R [facility] [id number] Univers 00:00:00 23:59:00 ity of [facility] 2021-12-17 2021-12-[address] [facility] 1.2.840.114 [id number] Univers 00:00:00 00:00:00 [place] L HEALTH 350.1.13.10 it y of [place] 4.2.7.2.686 Sathish as AKBAR?BLEA [phone] Ar huy ESPAÑA 198 [facility] 2021-12-10 2021-12-10 [facility] [id number] Univers 08:15:00 08:34:36 VENTURA lockett [facility] 2021-12-10 2021-12-[address] [facility] 1.2.165.605 [id number] Univers 08:15:00 08:34:36 Visit [place] [facility] 350.1.13.10 it y of [place] 4.2.7.2.686 Sathish as AKBAR?BLEA [phone] Ar dical IRONEY [address] MEDICAL OFFICE [facility] 2021-12-10 2021-12-10 [facility] [id number] Univers 08:15:00 08:15:00 VENTURA lockett [facility] 2021-12-09 2021-12-09 Outpatient Tahira SHINE [facility] [id number] Univers 14:00:00 14:35:06 APRYL lockett o [facility] 2021-12-09 2021-12-[address] [facility] 1.2.840.114 [id number] Univers 14:00:00 14:35:06 Visit Apryl SOLARES 350.1.13.10 ity [facility] 4.2.7.2.[place] [phone] Ar huy MARTÍNEZ 059 [facility] 2021-12-09 2021-12-09 Outpatient Tahira SHINE [facility] [id number] Univers 14:00:00 14:35:06 HUGOGILLESEVANGELINA lockett o [facility] 2021-12-02 2021-12-02 Outpatient ELENA BELLE [facility] [id number] Polo 00:00:00 00:00:[address] 2021-11-22 2021-11-22 Outpatient SHASHI [facility] [id number] Univers 00:00:00 23:59:00 NICOLAS ity [facility] 2021-11-22 2021-11-22 Hospital CHRIS Danielle 1.2.840.114 [id number] Univers 00:00:00 23:59:00 Encounter Nicolaskaycee CHAUDHRY 350.1.13.10 ity of [facility] 4.2.7.2.686 Sathish as [phone] [facility] [address] 2021-11-22 2021-11-22 Outpatient R [facility] [id number] Univers 00:00:00 23:59:00 ity of [facility] 2021-11-09 2021-11-09 Refill Shine [facility] 1.2.840.114 [id number] Univers 00:00:00 00:00:00 Adrianevangelina KIMBALLZOIE 350.1.13.10 ity of [place].2.7.2.686 [place] [phone] Ar dical NAL 9 [facility] 2021-10-27 2021-10-27 Orders Doctor TORRIE 1.2.840.114 [id number] Univers 00:00:00 00:00:00 Only Unassigned, RICHA 350.1.13.10 ity of [place] [facility] 4.2.7.2.686 Sathish as [phone] [facility] [address] 2021-10-22 2021-10-22 Out[facility] [id number] Univers 00:00:00 23:59:00 NICOLAS ity of [facility] 2021-10-22 2021-10-22 [facility] CHRIS Danielle 1.2.840.114 [id number] Univers 00:00:00 23:59:00 Encounter Nicolas RICHA 350.1.13.10 ity of [facility] 4.2.7.2.686 Sathish as [phone] [facility] [address] 2021-10-08 2021-10-08 Patient Doctor ORELSY 1.2.840.114 [id number] Univers 00:00:00 00:00:00 Secure Msg Unassigned, [place] 350.1.13.10 ity [place].2.7.2.[place] [phone] Ar dical NAL 9 [facility] 2021-09-22 2021-09-22 Outpatient [facility] [id number] Univers 00:00:00 23:59:00 NICOLAS ity of [facility] 2021-09-22 2021-09-22 [facility] CHRIS Danielle 1.2.840.114 [id number] Univers 00:00:00 23:59:00 Encounter Nicolaskaycee CHAUDHRY 350.1.13.10 ity of [facility] 4.2.7.2.686 Sathish as [phone] [facility] [address] 2021-09-22 2021-09-22 Outpatient R ROMAN [facility] [id number] Univers 14:30:00 14:58:19 VENTURA eduard [facility] 2021-09-22 2021-09-[address] [facility] 1.2.023.761 [id number] Univers 14:30:00 14:58:19 Visit [facility] 350.1.13.10 it y of [place] 4.2.7.2.686 Sathish as AKBAR?BLEA [phone] Ar huy ESPAÑA [address] MEDICAL OFFICE [facility] 2021-09-21 2021-09-21 [facility] 1.2.840.114 [id number] Univers 00:00:00 00:00:00 [facility] 350.1.13.10 it y of [place] [facility] 4.2.7.2.686 Sathish as AKBAR?BLEA [phone] Ar huy ESPAÑA 044 [facility] OFFICE [facility] 2021-09-17 2021-09-17 Outpatient [facility] [id number] [address] [place] [address] 00:00:00 00:00:[address] 2021-09-16 2021-09-16 [facility] [facility] 1.2.840.114 [id number] Univers 00:00:00 00:00:00 [facility] 350.1.13.10 it y of [place] 4.2.7.2.686 Sathish as AKBAR?BLEA [phone] Ar huy ESPAÑA 044 [facility] OFFICE [facility] 2021-09-15 2021-09-15 Outpatient Tahira WILLS [facility] [id number] Univers 14:00:00 23:59:00 TIMA lockett [facility] 2021-09-15 2021-09-15 Outpatient Tahira WILLS [facility] [id number] Univers 14:00:00 23:59:00 TIMA lockett [facility] 2021-09-15 2021-09-15 [facility] [id number] Univers 14:00:00 23:59:00 TIMA [facility] 2021-09-15 2021-09-[address] [facility] 1.2.840.114 [id number] Univers 13:15:00 13:55:05 Visit [facility] 350.1.13.10 it y of [place] 4.2.7.2.686 Sathish as AKBAR?BLEA [phone] Ar huy ESPAÑA 044 [facility] OFFICE [facility] 2021-09-15 2021-09-15 [facility] [facility] 1.2.840.114 [id number] Univers 00:00:00 00:00:00 Qiaradha [facility] 350.1.13.10 ity of [place].2.7.2.[place] [phone] Ar huy MARTÍNEZ 059 [facility] 2021-09-14 2021-09-14 [facility] 1.2.840.114 [id number] Univers 00:00:00 00:00:00 [facility] 350.1.13.10 it y of [place] 4.2.7.2.686 Sathish as AKBAR?BLEA [phone] Ar loydmt TACO 044 [facility] 2021-09-13 2021-09-13 Outpatient Tahira WILLS [facility] [id number] Univers 14:00:00 14:00:00 TIMA [facility] 2021-09-10 2021-09-[address] [facility] 1.2.840.114 [id number] Univers 14:40:00 15:32:11 Visit [facility] 350.1.13.10 ity of [place] 4.2.7.2.686 Sathish as AKBAR?BLEA [phone] Ar dicclaudio ESPAÑA 092 [facility] OFFICE [facility] 2021-09-10 2021-09-10 Outpatient ELISEO KRUEGER [facility] [id number] Univers 14:40:00 15:32:11 ELISEO TRUONG [facility] 2021-09-10 2021-09-10 Outpatient ELISEO KRUEGER [facility] [id number] Univers 14:40:00 14:40:00 ELISEO TRUONG [facility] 2021-09-10 2021-09-10 Orders Doctor BROWNLEE 1.2.840.114 [id number] Univers 00:00:00 00:00:00 Only Unassigned, RICHA 350.1.13.10 ity of [place] [facility] 4.2.7.2.686 Sathish as [phone] [facility] [address] 2021-09-06 2021-09-06 Outpatient ELISEO KRUEGER [facility] [id number] Univers 14:20:00 14:20:00 ELISEO TRUONG eduard [facility] 2021-09-06 2021-09-06 Outpatient ELISEO KRUEGER [facility] [id number] Univers 14:20:00 14:20:00 ELISEO TRUONG eduard [facility] 2021-09-06 2021-09-06 Outpatient Tahira ELISEO TRUONG [facility] [id number] Univers 14:20:00 14:20:00 ELISEO TRUONG [facility] 2021-08-23 2021-08-23 Outpatient Tahira DANIELLE [facility] [id number] Univers 00:00:00 23:59:00 NICOLAS [facility] 2021-08-23 2021-08-23 [facility] CHRIS Danielle 1.2.840.114 [id number] Univers 00:00:00 23:59:00 Encounter Nicolas RICHA 350.1.13.10 ity of [facility] 4.2.7.2.686 Sathish as [phone] [place] 4[address] [place] 2021-07-24 2021-07-[address] [facility] 1.2.840.114 [id number] Univers 00:00:00 00:00:00 [facility] 350.1.13.10 it y of [place] 4.2.7.2.686 Sathish as AKBAR?BLEA [phone] [address] MEDICAL OFFICE BUILDING 2021-07-23 2021-07-23 Outpatient Tahira [facility] [id number] Univers 00:00:00 23:59:00 NICOLAS ity of [facility] 2021-07-02 2021-07-02 Outpatient [facility] [id number] Polo 00:00:00 00:00:[address] 2021-06-29 2021-06-29 [facility] 1.2.840.114 [id number] Univers 00:00:00 00:00:00 Tima HEALTH 350.1.13.10 it y of [place] 4.2.7.2.686 Sathish as AKBAR?BLEA [phone] [address] OFFICE [facility] 2021-06-29 2021-06-29 [facility] 1.2.840.114 [id number] Univers 00:00:00 00:00:00 Tima HEALTH 350.1.13.10 it y of [place] 4.2.7.2.686 Sathish as AKBAR?BLEA [phone] [address] 2021-06-25 2021-06-25 [facility] 1.2.840.114 [id number] Univers 00:00:00 00:00:00 [facility] HEALTH 350.1.13.10 it y of [place] 4.2.7.2.686 Sathish as AKBAR?BLEA [phone] [address] 2021-06-23 2021-06-23 Outpatient R SHASHI [facility] [id number] Univers 00:00:00 23:59:00 NICOLAS ity of [facility] 2021-06-23 2021-06-23 Hospital CHRIS Danielle 1.2.840.114 [id number] Univers 00:00:00 23:59:00 Encounter Nicolas RICHA 350.1.13.10 ity of [facility] 4.2.7.2.686 Sathish as [phone] [address] 2021-06-23 2021-06-23 [facility] 1.2.840.114 [id number] Univers 00:00:00 00:00:00 Tima HEALTH 350.1.13.10 it y of [place] 4.2.7.2.686 Sathish as AKBAR?BLEA [phone] Ar huy [address] MEDICAL OFFICE BUILDING 2021-06-15 2021-06-15 Orders Doctor TORRIE 1.2.840.114 [id number] Univers 00:00:00 00:00:00 Only Unassigned, RICHA 350.1.13.10 ity of [place] [facility] 4.2.7.2.686 Sathish as [phone] [address] 2021-06-14 2021-06-14 Outpatient [facility] [id number] Univers 14:30:00 15:02:41 [facility] 2021-06-14 2021-06-14 [facility] 1.2.840.114 [id number] Univers 14:30:00 15:00:00 Visit [facility] 350.1.13.10 it y of [place] 4.2.7.2.686 Sathish as AKBAR?BLEA [phone] [address] MEDICAL OFFICE [facility] 2021-06-14 2021-06-14 Outpatient Tahira WILLS [facility] [id number] Univers 14:30:00 14:30:00 TIMA [facility] 2021-06-14 2021-06-14 Outpatient Tahira WILLS [facility] [id number] Univers 14:30:00 14:30:00 TIMA [facility] 2021-06-14 2021-06-14 Outpatient Tahira WILLS [facility] [id number] Univers 14:30:00 14:30:00 TIMA [facility] 2021-06-10 2021-06-10 Outpatient ELENA BELLE [facility] [id number] Polo 00:00:00 00:00:[address] 2021-06-09 2021-06-09 Outpatient Tahira RIOJAS [facility] [id number] Univers 10:20:00 15:29:15 APRYL benoit [facility] 2021-06-09 2021-06-09 Outpatient Tahira RIOJAS [facility] [id number] Univers 10:20:00 15:29:15 APRYL lockett o f [facility] 2021-06-09 2021-06-[address] [facility] 1.2.840.114 [id number] Univers 10:20:00 10:40:00 Visit Apryl SOLARES 350.1.13.10 ity [facility] 4.2.7.2.[place] [phone] Ar dical NAL [address] [facility] 2021-06-09 2021-06-09 Outpatient R SHINE [facility] [id number] Univers 10:20:00 10:20:00 APRYL lockett o kaycee [facility] 2021-06-09 2021-06-09 Telephone CHRIS Riojas 1..066.534 [id number] Univers 00:00:00 00:00:00 Hugoradha VARGASY 350.1.13.10 i ty [facility] 4.2.7.2.686 Sathish as [phone] [facility] [address] 2021-06-08 2021-06-08 Outpatient R ELISEO TRUONG [facility] [id number] Univers 10:00:00 11:03:17 DIONNE ELISEO [facility] 2021-06-08 2021-06-08 Outpatient R DIONNEELISEO [facility] [id number] Univers 10:00:00 11:03:17 DIONNE ELISEO eduard [facility] 2021-06-08 2021-06-[address] [facility] 1.2.840.114 [id number] Univers 10:00:00 11:03:17 Visit [facility] 350.1.13.10 ity [facility] 4.2.7.2.686 Sathish as AKBAR?BLEA [phone] Ar dical KNEY [address] MEDICAL OFFICE BUILDING 2021-05-17 2021-06-04 Inpatient 3 [place] ENCPL CVA 5640 [employer] 18:50:00 12:25:00 hez, 1206 ss [facility] [place] 2021-06-02 2021-06-02 Telephone Dionne ORELSY 1..840.114 [id number] [id number] Univers 00:00:00 00:00:00 Eliseo SOLARES 350.1.13.10 ity of [facility] 4.2.7.2.686 [place] [phone] Ar loydclaudio TANYA 092 [facility] 2021-06-02 2021-06-02 Orders Doctor TORRIE 1.2.840.114 [id number] Univers 00:00:00 00:00:00 Only Unassigned, RICHA 350.1.13.10 ity of [place] [facility] 4.2.7.2.686 Sathish as [phone] [address] 2021-05-20 2021-05-20 Telephone Elma [facility] 1.2.840.114 [id number] Univers 00:00:00 00:00:00 [facility] 350.1.13.10 it y of [place] 4.2.7.2.686 Sathish as AKBAR?BLEA [phone] Ar huy WILDERJAQUELIN [address] MEDICAL OFFICE [facility] 2021-05-10 2021-05-17 Inpatient ER Steffanie-JODIE, [facility] Neuro ICU 20 [id number] [facility] 10:06:00 18:27:00 YENNI 2021-03-25 2021-03-25 Hospital [facility] 1.2.840.114 [id number] Univers 08:25:00 23:59:00 Encounter [place] [facility] 350.1.13.10 ity of [place] 4.2.7.2.686 Sathish as Akbar?Blea [phone] Ar huy españa [address] Medical Office [facility] 2021-03-25 2021-03-25 [facility] [id number] Univers 08:25:00 23:59:00 [facility] 2021-03-25 2021-03-25 Outpatient [facility] [id number] Univers 08:25:00 23:59:00 [facility] 2021-03-25 2021-03-25 Office [facility] 1.2.254.739 [id number] Univers 08:22:43 08:47:38 Visit [place] [facility] 350.1.13.10 it y of [place] 4.2.7.2.686 Sathish as Akbar?Blea [phone] Ar huy españa 198 [facility] Office [facility] 2021-03-25 2021-03-25 Outpatient R OWENS [facility] [id number] Univers 08:30:00 08:30:00 VENTURA lockett [facility] 2021-03-24 2021-03-24 Outpatient R ROMAN [facility] [id number] Univers 14:45:00 14:45:00 VENTURABERHANE lockett [facility] 2021-03-24 2021-03-24 Outpatient R ROMAN [facility] [id number] Univers 14:45:00 14:45:00 VENTURABERHANE lockett [facility] 2021-03-24 2021-03-24 [facility] [id number] Univers 14:45:00 14:45:00 [facility] 2021-03-22 2021-03-[address] [facility] 1.2.840.114 [id number] Univers 10:25:49 10:44:19 Visit [facility] 350.1.13.10 it y of [place] 4.2.7.2.686 Sathish as Akbar?Blea [phone] Ar huy españa 044 [facility] Office [facility] 2021-03-22 2021-03-22 Outpatient R ELMA [facility] [id number] Univers 10:30:00 10:30:00 TIMA lockett [facility] 2021-02-08 2021-02-08 Director Of Child Welfare Services Lab, Ang - [facility] 1.2.840.1 14 [id number] Univers 08:50:29 09:05:29 Visit Tima Wills [facility] 350.1.13 .10 ity of [place] 4.2.7.2.686 Sathish as Akbar?Blea [phone] Ar huy españa 353 [facility] Office [facility] 2021-02-08 2021-02-08 Outpatient R ELMA [facility] [id number] Univers 08:15:00 08:46:26 TIMA lockett [facility] 2021-02-082021-02-08 Office [facility] 1.2.840.114 [id number] Univers 08:14:27 08:44:27 Visit [facility] 350.1.13.10 it y of [place] 4.2.7.2.686 Sathish as Akbar?Blea [phone] Ar huy wilderey 044 [facility] 2021-02-08 2021-02-08 Outpatient R [facility] [id number] Univers 08:15:00 08:15:00 [facility] 2020-09-08 2020-09-08 Office [facility] 1.2.840.114 [id number] Univers 10:16:46 10:31:46 Visit [facility] 350.1.13.10 it y of [place] 4.2.7.2.686 Sathish as Professio [phone] [facility] nal [address] [place] [address] One 2020-09-08 2020-09-08 Outpatient R [facility] [id number] Univers 10:30:00 10:30:00 [facility] 2020-08-29 2020-08-29 Outpatient [facility] [id number] Univers 08:40:00 08:40:00 [facility] 2020-08-10 2020-08-10 Office [facility] 1.2.840.114 [id number] Univers 09:10:02 09:40:02 Visit [facility] 350.1.13.10 it y of [place] 4.2.7.2.686 Sathish as Professio [phone] Ar loydmt nal [address] [place] [address] One 2020-08-10 2020-08-10 Outpatient R [facility] [id number] Univers 09:30:00 09:30:00 [facility] 2020-08-10 2020-08-10 Orders Doctor TORRIE 1.2.840.114 [id number] Univers 00:00:00 00:00:00 Only Unassigned, RICHA 350.1.13.10 ity of [place] [facility] 4.2.7.2.686 Sathish as [phone] [facility] [address] 2020-08-08 2020-08-08 Outpatient [facility] [id number] Univers 08:35:00 08:35:00 ity of [facility] 2020-06-17 2020-06-17 Laboratory Lab, Adc Fam Pob I [facility] 1.2. [id number] Univers 17:44:01 18:04:01 Only RoeFarshad [facility] [id number] [facility] [id number] Sathish as Professio [phone] Ar dical [facility] [address] 2020-06-17 2020-06-17 Outpatient R ROE [facility] [id number] Univers 17:40:00 17:40:00 FARSHAD ity [facility] 2020-06-17 2020-06-17 Letter Doctor TORRIE [id number] Univers 00:00:00 00:00:00 (Out) Unassigned, [place] [id number] [facility] [id number] Sathish as [phone] [facility] [address] 2020-01-21 2020-01-21 [facility] [id number] Common 13:00:00 13:00:00 [facility] 2019-09-05 2019-09-05 [facility] [id number] Common 08:08:00 08:08:00 [facility] 2019-07-25 2019-07-25 [facility] [id number] Common 13:45:00 13:45:00 [facility] Results Test Description Test Time Test Comments Results Result Comments Source SARS-COV2/RT-PCR ([facility]) 2021-05-17 10:29:20 Test Item Value Reference Range Interpretation Comme nts SARS-COV2/RT-PCR (test code = 6886047) Negative Not Detected, N egative, See external report for linked test SARS-COV-2 PERFORMING LAB (test code = [facility] [id number]) Negative result for this test determines that SARS-CoV-2 RNA was not present in the specimen above the Limit of Detection (LOD). However, Negative results do not preclude SARS-CoV-2 infection and should not be used as the sole basis for treatment or patient management decisions. Negative results must be combined with clinical observations, patient history, and [...] 564(g) of the Act.Fact Sheet for Healthcare Pro viders:[email or web address]/sites/default/files/product/documents/Fact_Sheet_H I_Ihpsyndta_Hcou_OICQ-IwY-4.pdfFact Sheet for Healthcare Patients:[email or web address]://[email or web address].com/sites/default/files/product/docum ents/Nncf_Qusvh_Vqbhtphp_Doys_CMIV-AeJ-3.pdfPerforming Laboratory:[facility], [place] [address]EMHZC METABOLIC PANEL 2021-05-17 05:11:42 Test Item Value [...] S NOT APPLICABLE FOR DIALYSIS PATIEN TS. Local Coordinator ID - EDDIE MPROTHROMBIN TIME/[id number] 05:11:07 Test Item Value Reference Range Interpretation Comments PROTIME (BEAKER) 13.4 seconds 11.9-14.2 (test code = 759) INR (BEAKER) (test 1.04 See_Comment [Automat ed message] code = 370) The system Datameer generated this result transmitted ref erence range: <=5.90. The reference range was not used to int erpret this result as normal/abnormal . RECOMMENDED COUMADIN/WARFARIN INR THERAPY RANGESSTANDARD DOSE: 2.0 - 3.0 Includes: PROPHYLAXIS for venous thrombosis, systemic embolization; TREATMENT for venous thrombosis [...] 0-0 (BEAKER) (test code = 413) POCT-GLUCOSE [id number] 18:06:34 Test Item Value Reference Range Interpretation Comments POC-GLUCOSE METER 101 mg/dL 70-110 : TESTED A T [facility] 6720 ([facility]) (test code = [facility], [facility]) 70052: Local Coordinator/Techni elizabeth ID = [id number] for Bl kiersten Rufino POCT-GLUCOSE [id number] 12:14:02 Test Item Value Reference Range Interpretation Comments POC-GLUCOSE METER 99 mg/dL 70-110 : TESTED A T [facility] 6720 (BEAKER) (test code = [facility], [facility]) 22384: Local Coordinator/Techni elizabeth ID = [id number] for Won guo, Rufino POCT-GLUCOSE [id number] 18:02:29 Test Item Value Reference Range Interpretation Comments POC-GLUCOSE METER 130 mg/dL 70-110 H : TESTED A T [facility] 6720 (BEAKER) (test code = [facility], 1538) 88336: Local Coordinator/Techni elizabeth ID = [id number] for AK INSONU, EMILEE POCT-GLUCOSE [id number] 12:53:38 Test Item Value Reference Range Interpretation Comments POC-GLUCOSE METER 100 mg/dL 70-110 : TESTED A T [facility] 6720 (BEAKER) (test code = [facility], 1538) 80812: Local Coordinator/Techni elizabeth ID = [id number] for AK INSONU, EMILEE POCT-GLUCOSE [id number] 08:26:31 Test Item Value Reference Range Interpretation Comments POC-GLUCOSE METER 91 mg/dL 70-110 : TESTED A T [facility] 6720 (BEAKER) (test code = [place], 1538) [address]: Local Coordinator/Techni elizabeth ID = [id number] for EMILEE VICENTE [id number] 05:47:02 Test Item Value Reference Range Interpretation Comments MAGNESIUM (BEAKER) (test code = 1.9 mg/dL 1.6-2.6 627) Local Coordinator ID - [id number] 05:47:02 Test Item Value Reference Range Interpretation Comments PHOSPHORUS (BEAKER) (test code = 3.3 mg/dL 2.3-4.7 604) Local Coordinator ID - ADMINBASIC METABOLIC [id number] 05:47:01 Test Item Value Reference Range Interpretation [...] S NOT APPLICABLE FOR DIALYSIS PATIEN TS. Local Coordinator ID - ADMINCBC W/PLT COUNT & AUTO [id number] 05:34:49 Test Item Value Reference Range Interpretation [...] PERCENT (BEAKER) (test code = 2801) POCT-GLUCOSE [id number] 22:58:58 Test Item Value Reference Range Interpretation Comments POC-GLUCOSE METER 102 mg/dL 70-110 : TESTED A T [facility] 6720 (JE) (test code = [place], 1538) 613[address]: Local Coordinator/Techni elizabeth ID = [id number] for AMIRA PULIDO CTA, CHEST, ABDOMEN - PELVIS, FOR [id number] 18:05:00Unlisted Reason for Exam - Click Yes and Enter Reason Below->Yesdilated aortic root and ascendingaorta on echoUnlisted Reason for Exam->dilated aortic root and ascending aorta on echo [facility] : 1940 Sex: MAddendum Be ginsREPORT STATUS:A I have reviewed the CT images for this study and I concur with the nonvascular imaging findings as dictated. In addition, there is a 1 cm densely sclerotic lesion in the posterior lateral left T6 vertebral body, of uncertain clinical significance. Bone scan maybe useful for further evaluation. There is also nonspecific perinephric fat stranding present, rightand left. There is no definite obstruction. Multiple pelvic phleboliths are noted. No visible renal or ureteral calculi Signed: Torrie Mckeon MDReport Verified Date/Time: 05/14/2021 18:05:25 Reading Location: [facility] Diagnostic Imaging Reading Room - [facility] 1.310.12Addendum EndsFINAL REPORT CTA Aorta - Chest, Abdomen, and Pelvis: 05/12/2021 2:21 AM. Comparison: None available. 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 Evaluated for further treatment options. Indication: There is clinical need to define thoracic and abdominal aortic anatomy, as well as to assess vascular access for possible peripheral cannulation. There is a clinical concern of aortic aneurysm. This study is performed in an attempt to avoid an invasive procedure. TECHNIQUE: Spiral acquisition before and during intravenous contrast administration using a (Siemens SOMATOM Force scanner). Images were obtained before and during the dynamic passage of intravenous contrast material. Multi-planar 3-D volume- rendering reconstruction was performed using an independent workstation intera ctively by the interpreting physician as well as the 3-D specialist for optimal visualization of thethoracoabdominal aorta, the pelvic arteries as well as its proximal branches. Please refer to the contrast sheet scanned in the EPIC system for the amount and route of contrast given. This exam was performed according to our departmental dose-optimisation programme, which includes automated exposure control, adjustment of the mA and/or kV according to patient size and/or use of iterative reconstruction technique. Dose modulation, iterative reconstruction, and/or weight based adjustment of the mA/kV was utilized to reduce the radiation dose to as low as reasonably achievable. RESULT: Potential studylimitations: None. CHEST: The visualized thyroid gland appears unremarkable. The chest wall is unremarkable. The mediastinum is unremarkable. There are small mediastinal lymph nodes, however there is no significant adenopathy noted in the axillae, mediastinum, and sandro. The pericardium appears normal.The pulmonary arteries are normal. The lung windows: Reveal bibasal atelectasis and a 1.9 cm parenchymal cyst noted in the right lower lobe (image 126). The central airways are patent. There is no abnormal pulmonary parenchymal mass, infiltrate, or pleural effusion. The cardiac chambers have normal atrioventricular and ventriculoarterial concordance, and systemic and pulmonary venous return. The cardiac chamber sizes are normal. The coronary arteries have normal origins and courses. There are mild coronary calcifications identified, though this study was not optimized for coronary artery evaluation. VASCULAR WITH ADVANCED 3-D OFFLINE POST-PROCESSING:The aortic valve is trileaflet and is free from c alcifications. The aortic root is normal in dimension. The sinotubular junction is partially effaced, measuring 3.6 cm. Mild ectasia of the midascending thoracic aorta measuring 4.3 x 4.3 cm, otherwisethe remaining thoracic aorta is normal in course, [...] are patent. The pelvic arteries are tortuous, but otherwise normal in caliber and contour.The common femoral and superficial femoral arteries are normal in course, caliber and contour. Thereis no acute aortic pathology, such as dissection, intramural hematoma, or contained rupture. Spearer dimensions of the thoracic aorta are as follows:*3.6 cm at the sinuses of Valsalva (measured wmacp-zx-luiubzdgcz)*4.3 x 4.3 cm in the mid- ascending aorta*3.7 cm at the distal ascending aorta*3.2cm at the mid-transverse arch*2.8 cm at the proximal descending thoracic aorta*2.7 cm at the diaphrag matic hiatus Spearer dimensions of the abdominal aorta are as follows: *2.7 cm at the supra-mesenteric segment*2.5 cm at the mesenteric segment*2.0 cm at the renal segment*1.9 cm at the infrarenal [...] Bowel is not well assessed by CT angiographyas enteric contrast is not given. No obvious bowel dilation is seen. There is no significant retroperitoneal adenopathy. No free fluid or free air is identified. The visualized pelvic organs appear unremarkable. BONES:Degenerative changes involving the thoracic and lumbar spine. CONCLUSIONS: 1. Mild ectasia of the midascending thoracic aorta measuring 4.3 x 4.3 cm, otherwise thoraco-abdominal aorta is normal in course, contour, and calibre. There is no evidence of acute aortic pathology, specifically, there is no dissection, intramural hematoma, or contained rupture. Quantitative dimension of the aorta are as described above. 2. There are two right and two left renal arteries, that are widely patent. Patent mesenteric arteries. An addendum will be dictated regarding the non- vascular findings by the Corporate Services Manager Radiologist. Signed: Jerome Joneseport Verified Date/Time: 05/12/2021 18:32:07 POCT-GLUCOSE [id number] 16:50:24 Test Item Value Reference Range Interpretation Comments POC-GLUCOSE METER 106 mg/dL 70-110 : TESTED A T [facility] 6720 (BEAKER) (test code = [facility], 1538) 02225: Local Coordinator/Techni elizabeth ID = [id number] for Albaro keeng, Latesa POCT-GLUCOSE [id number] 11:23:11 Test Item Value Reference Range Interpretation Comments POC-GLUCOSE METER 119 mg/dL 70-110 H : TESTED A T [facility] 6720 (BEAKER) (test code = [facility], 1538) 67006: Local Coordinator/Techni elizabeth ID = [id number] for Albaro namrong, Latesa POCT-GLUCOSE [id number] 07:32:41 Test Item Value Reference Range Interpretation Comments POC-GLUCOSE METER 96 mg/dL 70-110 : TESTED A T [facility] 6720 (BEAKER) (test code = [facility], 1538) 55678: Local Coordinator/Techni elizabeth ID = [id number] for Nabor shepherd Late [id number] 04:07:27 Test Item Value Reference Range Interpretation Comments MAGNESIUM (BEAKER) (test code = 1.8 mg/dL 1.6-2.6 627) Local Coordinator ID - QUIQUE [id number] 04:07:27 Test Item Value Reference Range Interpretation Comments PHOSPHORUS (BEAKER) (test code = 2.8 mg/dL 2.3-4.7 604) Local Coordinator ID - QUIQUE GBASIC METABOLIC [id number] 04:07:26 Test Item Value Reference Range Interpretation [...] S NOT APPLICABLE FOR DIALYSIS PATIEN TS. Local Coordinator ID - QUIQUE GCBC W/PLT COUNT & AUTO [id number] 03:42:03 Test Item Value Reference Range Interpretation [...] PERCENT (BEAKER) (test code = 2801) POCT-GLUCOSE [id number] 02:54:40 Test Item Value Reference Range Interpretation Comments POC-GLUCOSE METER 77 mg/dL 70-110 : TESTED A T [facility] 6720 (BEAKER) (test code = [facility], 1538) 52475: Local Coordinator/Techni elizabeth ID = [id number] for AMIRA OBRIEN POCT-GLUCOSE [id number] 11:08:38 Test Item Value Reference Range Interpretation Comments POC-GLUCOSE METER 99 mg/dL 70-110 : TESTED A T [facility] 6720 (BEAKER) (test code = [facility], 1538) 88856: Local Coordinator/Techni elizabeth ID = [id number] for Shireen Tracey POCT-GLUCOSE [id number] 06:23:59 Test Item Value Reference Range Interpretation Comments POC-GLUCOSE METER 119 mg/dL 70-110 H : TESTED A T [facility] 6720 (BEAKER) (test code = [facility], 1538) 41036: Local Coordinator/Techni elizabeth ID = [id number] for COLLIN JOSUEBRIDGER ANASTASIYA [id number] 03:48:58 Test Item Value Reference Range Interpretation Comments MAGNESIUM (BEAKER) (test code = 2.0 mg/dL 1.6-2.6 627) Local Coordinator ID - EDDIE [id number] 03:48:58 Test Item Value Reference Range Interpretation Comments PHOSPHORUS (BEAKER) (test code = 3.0 mg/dL 2.3-4.7 604) Local Coordinator ID - EDDIE MBASIC METABOLIC [id number] 03:48:57 Test Item Value Reference Range Interpretation [...] S NOT APPLICABLE FOR DIALYSIS PATIEN TS. Local Coordinator ID - EDDIE MCBC W/PLT COUNT & AUTO [id number] 03:16:28 Test Item Value Reference Range Interpretation [...] PERCENT (BEAKER) (test code = 2801) POCT-GLUCOSE [id number] 21:35:10 Test Item Value Reference Range Interpretation Comments POC-GLUCOSE METER 132 mg/dL 70-110 H : TESTED A T [facility] 6720 (BEAKER) (test code = [facility], 153) 19010: Local Coordinator/Techni elizabeth ID = [id number] for ANASTASIYA COLE POCT-GLUCOSE [id number] 19:11:39 Test Item Value Reference Range Interpretation Comments POC-GLUCOSE METER 82 mg/dL 70-110 : TESTED A T [facility] 6720 (BEAKER) (test code = [facility], 153) 67584: Local Coordinator/Techni elizabeth ID = [id number] for TEMO DOSS POCT-GLUCOSE [id number] 15:18:33 Test Item Value Reference Range Interpretation Comments POC-GLUCOSE METER 151 mg/dL 70-110 H : TESTED A T [facility] 6720 (BEAKER) (test code = [place], 1538) 54236: Local Coordinator/Techni elizabeth ID = [id number] for TEMO DUNBAR POCT-GLUCOSE [id number] 06:22:07 Test Item Value Reference Range Interpretation Comments POC-GLUCOSE METER 92 mg/dL 70-110 : TESTED A T [facility] 6720 (BEAKER) (test code = [place], 1538) 85942: Local Coordinator/Techni elizabeth ID = [id number] for ANASTASIYA HARGROVE BASIC METABOLIC [id number] 03:46:38 Test Item Value Reference Range Interpretation [...] S NOT APPLICABLE FOR DIALYSIS PATIEN TS. Local Coordinator ID - EDDIE [id number] 03:46:38 Test Item Value Reference Range Interpretation Comments MAGNESIUM (BEAKER) (test code = 2.1 mg/dL 1.6-2.6 627) Local Coordinator ID - EDDIE [id number] 03:46:38 Test Item Value Reference Range Interpretation Comments PHOSPHORUS (BEAKER) (test code = 3.3 mg/dL 2.3-4.7 604) Local Coordinator ID - EDDIE MCBC W/PLT COUNT & AUTO [id number] 03:24:38 Test Item Value Reference Range Interpretation [...] PERCENT (BEAKER) (test code = 2801) POCT-GLUCOSE [id number] 21:41:20 Test Item Value Reference Range Interpretation Comments POC-GLUCOSE METER 111 mg/dL 70-110 H : TESTED A T [facility] 6720 (BEAKER) (test code = [facility] [place] [facility], 1538) 12962: Local Coordinator/Techni elizabeth ID = [id number] for ANASTASIYA COLE [id number] 19:21:39 Test Item Value Reference Range Interpretation Comments MAGNESIUM (BEAKER) (test code = 2.4 mg/dL 1.6-2.6 627) Local Coordinator ID - BSPOCT-GLUCOSE [id number] 16:56:41 Test Item Value Reference Range Interpretation Comments POC-GLUCOSE METER 89 mg/dL 70-110 : TESTED A T [facility] 6720 (BEAKER) (test code = [facility] Tahira [facility], 1538) 98491: Local Coordinator/Techni elizabeth ID = [id number] for GALI HAINES MR, BRAIN, WITHOUT [id number] 14:43:00Reason for exam:->StrokeWhat is the patient's sedation requirement?->No Sedation [facility] : 1940 Sex: MFINAL REPORT MR, BRAIN, [...] periventricular and subcortical white matter are a nonspecific finding commonly attributed to chronic small vessel ischemic disease. Sinuses: No evidence of sinusitis. Mastoids are clear. Orbits: Globes are intact. Calvarium \T\ scalp: Unremarkable. 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 WOOD ROOM SUPERVISOR distribution, including involvement of the right midbrain and thalamus.Signed: Jenny Pierson Verified Date/Time: 05/11/2021 14:43:04 POCT-GLUCOSE [id number] 12:46:52 Test Item Value Reference Range Interpretation Comments POC-GLUCOSE METER 100 mg/dL 70-110 : TESTED A T [facility] 6720 ([facility]) (test code = [facility], 153) 64866: Local Coordinator/Techni elizabeth ID = [id number] for GALI POWELL [id number] 11:38:33 Test Item Value Reference Range Interpretation Comments RPR SCREEN ([facility]) (test code = Nonreactive Nonreactive 420) POCT-GLUCOSE [id number] 09:50:10 Test Item Value Reference Range Interpretation Comments POC-GLUCOSE METER 134 mg/dL 70-110 H : TESTED A T [facility] 6720 ([facility]) (test code [facility], = 1538) 57177: Local Coordinator/Techni elizabeth ID = [id number] for Blade navdeep Татьяна POCT-GLUCOSE [id number] 06:37:43 Test Item Value Reference Range Interpretation Comments POC-GLUCOSE METER 99 mg/dL 70-110 : TESTED A T [facility] 6720 ([facility]) (test code = [facility], 153) 08394: Local Coordinator/Techni elizabeth ID = [id number] for Samantha Perrin [id number] 06:30:32 Test Item Value Reference Range Interpretation Comments PARTIAL THROMBOPLASTIN TIME 28.6 seconds 22.5-36.0 ([facility]) (test code = 760) [id number] 06:30:11 Test Item Value Reference Range Interpretation Comments FIBRINOGEN LEVEL (JE) (test 272 mg/dl 225-434 code = 658) PROTHROMBIN [id number] 06:29:34 Test Item Value Reference Range Interpretation Comments PROTIME (JE) 13.7 seconds 11.9-14.2 (test code = 759) INR (JE) (test 1.07 See_Comment [Automat ed message] code = 370) The system Datameer generated this result transmitted ref erence range: <=5.90. The reference range was not used to int erpret this result as normal/abnormal . RECOMMENDED COUMADIN/WARFARIN INR THERAPY RANGESSTANDARD DOSE: 2.0 - 3.0 Includes: PROPHYLAXIS for venous thrombosis, systemic embolization; TREATMENT for venous thrombosis and/or pulmonary embolus.HIGH RISK: Target INR is 2.5-3.5 for patients with mechanical heart valves.CT, BRAIN, WITHOUT [id number] 05:56:00Unlisted Reason for Exam - Click Yes and Enter Reason Below- >YesUnlisted Reason for Exam->New left side drift \T\ decreased sensation [facility] : 1940 Sex: MFINAL REPORT [...] noted. Patchy white matter hypoattenuation redemonstrated. No hy perdense MCA sign. There is brain parenchymal volume loss. No mass, acute intracranial hemorrhage.Cerebellum and brainstem: No acute findings.Ventricles: No acute hydrocephalus.Extra-axial spaces: Unremarkable. Calvarium and skull base: Intact.Paranasal sinuses and mastoid air cells: Imaged chambers are without acute abnormality.Orbital contents: Included portions unremarkable. IMPRESSION:Right occipital lobe cortical hyperdensity compatible with age indeterminate ischemia. MRI brain recommended forfurther characterization. Additional chronic microvascular ischemic changes are present. Signed: Jack Kramer MDReport Verified Date/Time: 05/11/2021 05:56:14 [id number] 05:18:45 Test Item Value Reference Range Interpretation Comments PHOSPHORUS (BEAKER) 3.2 mg/dL 2.3-4.7 Specimen slightly (test code = 604) hemolyzed Local Coordinator ID - JUDY WBASIC METABOLIC [id number] 05:18:45 Test Item Value Reference Range Interpretation [...] S NOT APPLICABLE FOR DIALYSIS PATIEN TS. Local Coordinator ID - JUDY [id number] 05:18:44 Test Item Value Reference Range Interpretation Comments MAGNESIUM (BEAKER) 1.7 mg/dL 1.6-2.6 Specimen slightly (test code = 627) hemolyzed Local Coordinator ID Mic KIM WCBC W/PLT COUNT & AUTO [id number] 05:02:34 Test Item Value Reference Range Interpretation [...] PERCENT (BEAKER) (test code = 2801) POCT-GLUCOSE [id number] 21:31:30 Test Item Value Reference Range Interpretation Comments POC-GLUCOSE METER 107 mg/dL 70-110 : TESTED A T [facility] 6720 (BEAKER) (test code = [facility], 1538) 46539: Local Coordinator/Techni elizabeth ID = [id number] for Yokasta Chao POCT-GLUCOSE [id number] 18:45:17 Test Item Value Reference Range Interpretation Comments POC-GLUCOSE METER 148 mg/dL 70-110 H : TESTED A T [facility] 6720 (BEAKER) (test code = [facility], 1538) 78631: Local Coordinator/Techni elizabeth ID = [id number] for Babs De La Torre RAPID DRUG SCREEN, [id number] 16:48:13 Test Item Value Reference Range Interpretation [...] ng/mLOpiate 300 ng/mLMethadone 300 ng/mLAmphetamine/ 1000 ng/mL MethamphetamineThisassay provides an unconfirmed qualitative test result for the clinical management of patients in emergency situations. Chain of custody not maintained. Some bqjr-wec-wbcdnyl medications, as well as adulterants, may cause inaccurate results. Clinical correlation should be applied. A more comprehensive drug screen or confirmation of a detected drug may be performed upon request.Local Coordinator ID - DBURINALYSIS WITH MICROSCOPIC IF [id number] 15:10:45 Test Item Value Reference Range Interpretation [...] = 463) SOURCE(BEAKER) (test code = 2795) Local Coordinator ID - [auto]Local Coordinator ID - techURINALYSIS [id number] 15:10:39 Test Item Value Reference Range Interpretation Comments RBC UA (BEAKER) (test code = 519) 49 /HPF WBC UA (BEAKER) (test code = 520) 14 /HPF BACTERIA (BEAKER) (test code = 517) Rare CRYSTALS, URINE (BEAKER) (test code None Seen = 1521) Local Coordinator ID - techHEMOGLOBIN [id number] 14:58:17 Test Item Value Reference Range Interpretation Comments HEMOGLOBIN A1C (BEAKER) (test code = 5.4 % 4.3-6.1 368) VITAMIN B12 AND [id number] 14:29:23 Test Item Value Reference Range Interpretation Comments VITAMIN B12 235 pg/mL 213-816 (BEAKER) (test code = 774) FOLATE (BEAKER) 16.00 ng/mL See_Comment [Automated message] (test code = 362) The system which generated this result transmitted ref erence range: >=7.00. The reference range was not used to interpr et this result as normal/abnormal . Local Coordinator ID - RMTSH/FREE T4 IF [id number] 13:12:41 Test Item Value Reference Range Interpretation Comments THYROID STIMULATING HORMONE 1.649 uIU/mL 0.350-4.940 (BEAKER) (test code = 772) Local Coordinator ID - DBHIGH SENSITIVITY TROPONIN [id number] 12:58:22 Test Item Value Reference Range Interpretation Comments HIGH SENSITIVITY 6 pg/ml See_Comment [Automated message] TROPONIN I (test code = The system which [id number]) generated this result transmitted ref erence range: <=35. Th e reference range was not used to interpr et this result as normal/abnormal . Local Coordinator ID - DBThe DIRECTOR OF OPERATIONS STAT High Sensitivity Troponin-I results should be used in conjunctionwith other diagnostic information such as ECG, clinical observations and information, and patient symptoms to aid in the diagnosis of MT.HEPATIC FUNCTION [id number] 12:52:44 Test Item Value Reference Range Interpretation [...] Specimen moderately (test code = 347) hemolyzed Local Coordinator ID - DBLIPID [id number] 12:52:43 Test Item Value Reference Range Interpretation Comments TRIGLYCERIDES (BEAKER) 122 mg/dL Speci men moderately (test code = 540) hemolyzed CHOLESTEROL (BEAKER) 176 mg/dL Specime n moderately (test code = 631) hemolyzed HDL CHOLESTEROL (BEAKER) 50 mg/dL (test code = 976) LDL CHOLESTEROL 102 mg/dL CALCULATED (BEAKER) (test code = 633) Triglyceride Reference Range: Low Risk <150 Borderline 150-199 High Risk 200- 499 Very High Risk >=500Cholesterol Reference Range: Low Risk <200 Borderline 200-239 High Risk >240HDL Cholesterol Reference Range: Low Risk >=60 High Risk <40LDL Cholesterol Reference Range: Optimal <100 Near Optimal 100-129 Borderline 130-159 High 160-189 Very High >=190 Local Coordinator ID - [id number] 12:52:42 Test Item Value Reference Range Interpretation Comments PHOSPHORUS (BEAKER) 3.2 mg/dL 2.3-4.7 Specimen moderately (test code = 604) hemolyzed Local Coordinator ID - DBBASIC METABOLIC [id number] 12:52:42 Test Item Value Reference Range Interpretation [...] S NOT APPLICABLE FOR DIALYSIS PATIEN TS. Local Coordinator ID - [id number] 12:52:41 Test Item Value Reference Range Interpretation Comments MAGNESIUM (BEAKER) 2.0 mg/dL 1.6-2.6 Specimen moderately (test code = 627) hemolyzed Local Coordinator ID - [id number] 12:42:38 Test Item Value Reference Range Interpretation Comments PARTIAL THROMBOPLASTIN TIME 29.1 seconds 22.5-36.0 (BEAKER) (test code = 760) PROTHROMBIN [id number] 12:41:56 Test Item Value Reference Range Interpretation Comments PROTIME (BEAKER) 13.8 seconds 11.9-14.2 (test code = 759) INR (BEAKER) (test 1.08 See_Comment [Automat ed message] code = 370) The system Datameer generated this result transmitted ref erence range: <=5.90. The reference range was not used to int erpret this result as normal/abnormal . RECOMMENDED COUMADIN/WARFARIN INR THERAPY RANGESSTANDARD DOSE: 2.0 - 3.0 Includes: PROPHYLAXIS for venous thrombosis, systemic embolization; TREATMENT for venous thrombosis and/or pulmonary embolus.HIGH RISK: Target INR is 2.5-3.5 for patients with mechanical heart valves.CBC W/PLT COUNT & AUTO [id number] 12:35:19 Test Item Value Reference Range Interpretation [...] 0-1 PERCENT (BEAKER) (test code = 2801) [facility], [facility] [id number] 11:08:00Reason for exam:->Symptoms onset less than 6 hours and NIHSS 6 or greater [facility] 1940 Sex: MFINAL REPORT CT, CAROTID, ANGIO, CT, CEREBRAL PERFUSION ANALYSIS, CT, CTANGIO BRAINBRAIN CT WITHOUT CONTRAST INDICATION: Neuro deficit, acute, stroke suspectedSymptoms onset less than 6 hoursand NIHSS 6 or greater COMPARISON: None TECHNIQUE:Rapid [...] fossa. No significant mass effect on the subjacentparenchyma. No intracranial hemorrhage, midline shift or mass effect. Midline structures are normally developed. Mild chronic microvascular ischemic changes of the periventricular and subcortical whitematter are present. No hydrocephalus. Orbits are within normal limits. No obstructive paranasal sinus disease. CTA BRAIN:Internal carotid arteries: Petrous, cavernous and supraclinoid portions patent. Middle cerebral arteries: Bilateral MCA M1-M2 branches demonstrate normal contrast enhancement.Anterior cerebral arteries: Bilateral TED A1-A2 branches demonstrate normal contrast enhancement.Basilar system: Normal contrast opacification of the vertebrobasilar system.Posterior cerebral arteries: Occlusi on of the right WOOD ROOM SUPERVISOR, presumably chronic as there is no corresponding perfusion deficit. Contralateral left posterior cerebral artery demonstrates normal contrast opacification. Venous opacification: Major dural sinuses unremarkable for bolus timing.Additional findings: None. CT PERFUSION:Technique:Arterial input function: ACAVenous outflow function: TorcularSite of [...] proximal branch occlusion. Occlusion of the right WOOD ROOM SUPERVISOR, presumably chronic as there is no corresponding perfusion deficit. Unremarkable CTA of the neck. Signed: Doreen Hanks MDReport Verified Date/Time: 05/10/2021 11:08:14 Reading Location: [address] Neuro Reading Room CT, CAROTID, [id number] 11:08:00Reason for exam:- >Symptoms onset less than 6 hours and NIHSS 6 or greater [facility] : 1940 Sex: MFINAL REPORT CT, CAROTID, ANGIO, CT, CEREBRAL PERFUSION ANALYSIS, CT, CTANGIO BRAINBRAIN CT WITHOUT CONTRAST INDICATION: Neuro deficit, acute, stroke suspectedSymptoms onset less than 6 hoursand NIHSS 6 or greater COMPARISON: None TECHNIQUE:Rapid [...] fossa. No significant mass effect on the subjacentparenchyma. No intracranial hemorrhage, midline shift or mass effect. Midline structures are normally developed. Mild chronic microvascular ischemic changes of the periventricular and subcortical whitematter are present. No hydrocephalus. Orbits are within normal limits. No obstructive paranasal sinus disease. CTA BRAIN:Internal carotid arteries: Petrous, cavernous and supraclinoid portions patent. Middle cerebral arteries: Bilateral MCA M1-M2 branches demonstrate normal contrast enhancement.Anterior cerebral arteries: Bilateral TED A1-A2 branches demonstrate normal contrast enhancement.Basilar system: Normal contrast opacification of the vertebrobasilar system.Posterior cerebral arteries: Occlusi on of the right WOOD ROOM SUPERVISOR, presumably chronic as there is no corresponding perfusion deficit. Contralateral left posterior cerebral artery demonstrates normal contrast opacification. Venous opacification: Major dural sinuses unremarkable for bolus timing.Additional findings: None. CT PERFUSION:Technique:Arterial input function: ACAVenous outflow function: TorcularSite of [...] proximal branch occlusion. Occlusion of the right WOOD ROOM SUPERVISOR, presumably chronic as there is no corresponding perfusion deficit. Unremarkable CTA of the neck. Signed: Doreen Hanks MDReport Verified Date/Time: 05/10/2021 11:08:14 Reading Location: [facility] C0[facility] Neuro Reading Room [facility], CEREBRAL PERFUSION [id number] 11:08:00Reason for exam:->Symptom onset less than 6 hours and NIHSS 6 or greater [facility] : 1940 Sex: MFINAL REPORT CT, CAROTID, ANGIO, CT, CEREBRAL PERFUSION ANALYSIS, CT, CTANGIO BRAINBRAIN CT WITHOUT CONTRAST INDICATION: Neuro deficit, acute, stroke suspectedSymptoms onset less than 6 hours and NIHSS 6 or greater COMPARISON: None TECHNIQUE:Rapid acquisition spiral images were obtained between the aortic arch and the cranial vertex during intravenous contrast infusion to reconstruct axialimages and angiographic 3D maximum intensity projections (MIP). 3-D volumetric reformatted images were created at a dedicated workstation. Precontrast images of the brain were also obtained. Stenosis evaluation reported in compliance with NASCET criteria. DOSE REDUCTION: Dose modulation, iterative reconstruction, and/or weight-based adjustment of the mA/kV was utilized to reduce the radiation dose toas low as reasonably achievable. FINDINGS:CT BRAIN:NECT BRAIN:Small [...] carotid arteries: Petrous, cavernous and supraclinoid portions patent.Middle cerebral arteries: Bilateral MCA M1-M2 branches demonstrate normal contrast enhancement.Anterior cerebral arteries: Bilateral TED A1-A2 branches demonstrate normal contrast enhancement.Basilar sy stem: Normal contrast opacification of the vertebrobasilar system.Posterior cerebral arteries: Occlusion of the right WOOD ROOM SUPERVISOR, presumably chronic as there is no corresponding perfusion deficit. Contralateral left posterior cerebral artery demonstrates normal contrast opacification. Venous opacification: Major dural sinuses unremarkable for bolus timing.Additional findings: None. CT PERFUSION:Technique:Arterial input function: ACAVenous outflow function: TorcularSite of normal perfusion: right anterior territoryParametric Maps: Region of mismatch within the left temporal lobe with mismatch volume of 8 cc.No proximal branch occlusion. CTA NECK:Common carotid arteries: There is normal contrast opacification of the bilateral common carotid arteries.Cervical internal carotid arteries: Normal contrast opacification of the bilateral cervical internal carotid arteries without significant stenosis by NASCET italo esparza.Vertebral arteries: Normal contrast opacification of the bilateral cervical vertebral arteries.Arch anatomy: Conventional. Nonvascular findings:No acute findings within the neck soft tissues. 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 No significant mass effect on the subjacent parenchyma. No acute intracranial hemorrhage. Region of mismatch within the left temporal lobe with mismatch volume of 8 cc.No proximal branch occlusion. Occlusion of the right WOOD ROOM SUPERVISOR, presumably chronic as there is no corresponding perfusion deficit. Unre markable CTA of the neck. Signed: Doreen Hankseport Verified Date/Time: 05/10/2021 11:08:14 Reading Location: [address] Neuro Reading Room Notes Date/Time Note Provider Source 2023-01-04 Formatting of this note is different from the or iginal. [facility] 11:27:01-00:00 Recent Visits Date Type Provider Dept 08/08/22 Office Visit Noam Smith FNP [facility] 09/15/21 Office Visit Tima Wills MD [facility] Fam Med Showing recent visits within past 540 days with a meds authorizing provider and meeting all other requirements Future Appointments No visits were found meeting these conditions. Showing future appointments within next 150 days with a meds authorizing provider and meeting all other requirements Last refill was CLOPIDOGREL 75 mg tablet 90 tablet 0 09/16/2022 No Sig: TAKE 1 TABLET BY MOUTH EVERY DAY 2022-12-28 Formatting of this note might be differe nt from the original. Ana Luke RN [facility] 10:32:11-00:00 Call made to patient and adv ised him that gave ok to change the frequency of his home monitored reports to every 3 months. Pt advised to keep monitor connected so if any arrhythmias are noted in karoline julien he can be contacted. Pt verbalized understanding and thanked me for the call back. 2022-12-16 Formatting of this note might be differe nt from the original. IM- CLINICAL CARDIAC [facility] 12:52:40-00:00 Please schedule patient to h ave checks every 3 months, instead of monthly. ELECTROPHYSIOLOGY STAFF Thank You, Brayden Colon MD 2022-12-16 [facility] 11:37:09-00:00 Received message [facility] carp[facility] maintenance, Dr. Riojas regarding the frequency of the ILR checks, due to concern of cost. Chart reviewed, pt had ILR p laced at Outside hospital after a stroke. We have been monitoring with [employer] since after request to transfer to [facility] device clinic since cardiology MD is with us. The function of the [employer] REVAi c remote monitor the patient has performs a monthly summary for MD review event if there are not any pt stored or arrhythmia events. Forwarding this question for EP Faculty to advise if we can provide alternative schedule. Awaiting MD to review and advise. ----- Message ----- From: Apryl Riojas MD Sent: 12/09/2022 10:50 AM CDT To: Ana Luke RN Pt is asking if we can check ILR less often. The cost is a concern. Thanks.
[2023-01-29] MEDS ORDERED: NA CHLORIDE 0.9% 500 ML ONE (14:15)
[2023-01-29] MEDS ORDERED: ACETAMINOPHEN 325 MG TABLET ONE (14:34)
--- NOTE | 2023-01-29 14:35 | RAD REPORT ---
EXAM DESCRIPTION: CT - Head Brain Wo Cont - 01/29/2023 2:27 pm CLINICAL HISTORY: DECLINING STATE COMPARISON: Head Brain Wo Cont dated 10/15/2021 TECHNIQUE: All CT scans are performed using dose optimization technique as appropriate and may inclu de automated exposure control or mA/KV adjustment according to patient size. FINDINGS: No intracranial hemorrhage, hydrocephalus or extra-axial fluid collection.No areas of brai n edema or evidence of midline shift. Mild chronic small vessel ischemic changes. The paranasal sinuses and mastoids are clear. The calvarium is intact. IMPRESSION: No acute intracranial abnormality.
[2023-01-29 14:36] LABS: Absolute Lymphocytes (CBC) 1.3 K/uL (0.7-4.9); Hematocrit 36.2 % (39.6-49.0); Lymphocytes % 8.4 % (15.3-44.8); MCV 100.8 fL (80-100); MPV 8.3 fL (7.6-11.3); Platelets 243 thou/uL (152-406); RBC Red Blood Cell Count 3.59 M/uL (4.33-5.43)
[2023-01-29 14:41] LABS: Protime INR 1.09
--- NOTE | 2023-01-29 14:52 | RAD REPORT ---
EXAM DESCRIPTION: RAD - Chest Single View - 01/29/2023 2:43 pm CLINICAL HISTORY: FEVER COMPARISON: Chest Single View dated 05/10/2021 FINDINGS: Lines: None. Lungs: No evidence of edema or pneumonia. Pleural: No significant pleural effusions or pneumothorax. Cardiac: The heart size is within normal limits. Mediastinum: Within normal limits. Bones: No acute fractures. Other: Loop recorder overlies the heart. IMPRESSION: No acute cardiopulmonary disease.
[2023-01-29 14:54] LABS: Albumin 3.2 g/dL (3.4-5.0); Bilirubin Direct 0.2 mg/dL (0-0.2); Bilirubin Indirect, Calculated 0.5 mg/dL (0.2-0.8); Bilirubin Total 0.7 mg/dL (0.2-1.0); Magnesium 2.1 mg/dL (1.6-2.4); Potassium 3.6 mEq/L (3.5-5.1); Protein, Total 6.8 g/dL (6.4-8.2); Troponin High Sensitivity 11.3 pg/mL (<58.9)
[2023-01-29 18:05] LABS: Specific Gravity 1.015 (1.005-1.030); Urine Bacteria None Seen /HPF (<20); Urine Bilirubin NEGATIVE (Negative); Urine Blood Trace (Negative); Urine Clarity Turbid (Clear); Urine Color Light-Yellow (Yellow); Urine Glucose NEGATIVE (Negative); Urine Mucus Slight /HPF (None Seen); Urine Protein TRACE (Negative); Urine RBC <5 /HPF (None Seen); Urine Urobilinogen Normal (Normal); Urine pH 5.5 (5.0-7.0)
--- NOTE | 2023-01-29 18:25 | EDPHYS ---
Physician Documentation [facility] Name: Shahbaz Harper Age: 82 yrs Sex: Male : 1940 Arrival Date: 01/29/2023 Time: 13:36 Bed 3 Private MD: ED Physician Osvaldo Cerrato HPI: 01/29 13:57 This 82 yrs old Male presents to ER via Wheelchair with complaints of Generalized sp3 weakness and fatigue. 13:57 82-year-old male with history of CVA in 2020 currently on aspirin and Plavix, sp3 hypertension, hyperlipidemia presents to the ED with chief complaint 1 to 2 days of generalized weakness and a few near syncope episodes with slow ground-level descents who presents to the ED currently with the above symptoms with family. He denies any focal deficits, changes in speech, numbness or tingling, or significant trauma. He also denies headache, neck pain, chest pain, shortness of breath, abdominal pain, nausea, vomiting, diarrhea, urinary symptoms including frequency and dysuria, rash, joint aches, known sick contacts, travel history, or any other signs or symptoms on ROS at this time. He does state that he feels feverish and he does endorse a cough.. Historical: - Allergies: 13:56 No Known Allergies; nj1 - PMHx: 13:56 Hypertensive disorder; Cerebrovascular accident; Hypercholesterolemia; nj1 - PSHx: 13:56 tumor removal; nj1 - Immunization history:: Client reports receiving the 2nd dose of the Covid vaccine. - Social history:: Smoking status: Patient denies any tobacco usage or history of. ROS: 13:59 Eyes: Negative for injury, pain, redness, and discharge, ENT: Negative for injury, sp3 pain, and discharge, Neck: Negative for injury, pain, and swelling, Cardiovascular: Negative for chest pain, palpitations, and edema, Abdomen/GI: Negative for abdominal pain, nausea, vomiting, diarrhea, and constipation, Back: Negative for injury and pain, MS/Extremity: Negative for injury and deformity, Skin: Negative for injury, rash, and discoloration, Psych: Negative for depression, anxiety, suicide ideation, homicidal ideation, and hallucinations, Allergy/Immunology: Negative for hives, rash, and allergies, Endocrine: Negative for neck swelling, polydipsia, polyuria, polyphagia, and marked weight changes. 13:59 All other systems are negative. Exam: 13:59 Constitutional: This is a well developed, well nourished patient who is awake, alert, sp3 and in no acute distress. Head/Face: Normocephalic, atraumatic. Eyes: Pupils equal round and reactive to light, extra-ocular motions intact. Lids and lashes normal. Conjunctiva and sclera are non-icteric and not injected. Cornea within normal limits. Periorbital areas with no swelling, redness, or edema. ENT: Nares patent. No nasal discharge, no septal abnormalities noted. External auditory canals are clear. Oropharynx with no redness, swelling, or masses, exudates, or evidence of obstruction, uvula midline. Mucous membranes moist. Neck: Trachea midline, no thyromegaly or masses palpated, and no cervical lymphadenopathy. Supple, full range of motion without nuchal rigidity, or vertebral point tenderness. No Meningismus. Chest/axilla: Normal chest wall appearance and motion. Nontender with no deformity. No lesions are appreciated. Cardiovascular: Regular rate and rhythm with a normal S1 and S2. No gallops, murmurs, or rubs. Normal PMI, no JVD. No pulse deficits. Respiratory: Lungs have equal breath sounds bilaterally, clear to auscultation and percussion. No rales, rhonchi or wheezes noted. No increased work of breathing, no retractions or nasal flaring. Abdomen/GI: Soft, non-tender, with normal bowel sounds. No distension or tympany. No guarding or rebound. No evidence of tenderness throughout. Back: No spinal tenderness. No costovertebral tenderness. Full range of motion. Skin: Warm, dry with normal turgor. Normal color with no rashes, no lesions, and no evidence of cellulitis. MS/ Extremity: Pulses equal, no cyanosis. Neurovascular intact. Full, normal range of motion. Neuro: Awake and alert, GCS 15, oriented to person, place, time, and situation. Cranial nerves II-XII grossly intact. Motor strength 5/5 in all extremities. Sensory grossly intact. Cerebellar exam normal. Normal gait. 14:45 ECG was reviewed by the Attending Physician. EKG demonstrates normal sinus rhythm at 75 sp3 bpm with normal intervals, normal QRS, mildly leftward axis and nonspecific diffuse ST/T changes without evidence of acute ischemia. Vital Signs: 13:40 BP 124 / 73; Pulse 87; Resp 18; Temp 100.2; Pulse Ox 96% on R/A; Weight 81.65 kg; nj1 Height 5 ft. 8 in. ; Pain 0/10; 19:21 BP 133 / 81; Pulse 64; Resp 17; Pulse Ox 99% on R/A; kd3 20:02 BP 126 / 75; Pulse 63; Resp 18 S; Pulse Ox 98% on R/A; jw7 13:40 Body Mass Index 27.37 (81.65 kg, 172.72 cm) nj1 13:40 Pain Scale: Adult nj1 MDM: 13:51 Patient medically screened. sp3 13:59 Data reviewed: vital signs, nurses notes, lab test result(s), radiologic studies. ED sp3 course: 82-year-old male with multiple medical problems and CVA history currently on antiplatelet agents who presents with chief complaint generalized weakness and fatigue. Patient does have a temperature of 100.2 low-grade. I am not highly suspicious for acute CVA at this time though we will still check CT scan of the head. We will also obtain laboratory values, urine analysis, chest x-ray, swabs for COVID-19 and influenza along with generalized support and antipyretics. Consider admission if patient has not improved in the meantime we will seek source of possible infection. Final disposition pending work-up and patient course.. 18:24 ED course: Patient's urinalysis demonstrates positive infection. Vitals otherwise sp3 normal and we will give Levaquin 500 mg IV and discharge patient safely home on p.o. prescription. Follow-up with PCP as needed.. 01/29 13:52 Order name: Basic Metabolic Panel; Complete Time: 15:17 sp3 01/29 13:52 Order name: CBC with Diff; Complete Time: 15:17 sp3 01/29 13:52 Order name: Hepatic Function; Complete Time: 15:17 sp3 01/29 13:52 Order name: High Sensitivity Troponin; Complete Time: 15:17 sp3 01/29 13:52 Order name: Magnesium; Complete Time: 15:17 sp3 01/29 13:52 Order name: Protime (+inr); Complete Time: 15:17 sp3 01/29 13:52 Order name: Ptt, Activated; Complete Time: 15:17 sp3 01/29 13:52 Order name: UAM; Complete Time: 18:14 sp3 01/29 13:52 Order name: SARS-COV-2 RT PCR; Complete Time: 16:10 sp3 01/29 13:52 Order name: Flu; Complete Time: 15:17 sp3 01/29 13:52 Order name: Blood Culture Adult (2) sp3 01/29 13:52 Order name: Lactate w/ 2H reflex if indic.; Complete Time: 15:17 sp3 01/29 18:10 Order name: Urine Culture EDMS 01/29 13:52 Order name: Stroke CXR 1 View; Complete Time: 15:17 sp3 01/29 13:57 Order name: CT Head Brain wo Cont; Complete Time: 14:38 sp3 01/29 13:52 Order name: EKG; Complete Time: 13:55 sp3 01/29 13:52 Order name: Cardiac monitoring; Complete Time: 14:19 sp3 01/29 13:52 Order name: EKG - Nurse/Tech; Complete Time: 14:42 01/29 13:52 Order name: IV Saline Lock; Complete Time: 14:28 sp3 01/29 13:52 Order name: Labs collected and sent; Complete Time: 14:28 sp01/29 13:52 Order name: NPO; Complete Time: 14:19 sp3 01/29 13:52 Order name: O2 Per Protocol; Complete Time: 14:19 sp3 01/29 13:52 Order name: O2 Sat Monitoring; Complete Time: 14:19 sp01/29 13:52 Order name: Stroke Swallow Screen; Complete Time: 14:19 sp Administered Medications: 14:20 Drug: NS 0.9% IV 500 ml Route: IV; Rate: bolus; Site: left antecubital; bp 20:14 Follow up: Response: No adverse reaction; IV Status: Completed infusion; IV Intake: jw7 500ml 14:20 Drug: Acetaminophen PO 650 mg Route: PO; bp 18:45 Follow up: Response: No adverse reaction bp 18:30 Drug: levofloxacin IVPB 500 mg Volume: 100 ml; Route: IVPB; Infused Over: 60 mins; bp Site: left antecubital; 20:14 Follow up: Response: No adverse reaction; IV Status: Completed infusion; IV Intake: jw7 100ml Disposition Summary: 01/29/23 18:25 Discharge Ordered Location: Home sp3 Condition: Stable sp3 Diagnosis - Urinary tract infection, fever sp3 Followup: sp3 - With: Private Physician - When: Upon discharge from the Emergency Department - Reason: Continuance of care Discharge Instructions: - Discharge Summary Sheet sp3 - Urinary Tract Infection, Adult sp3 Forms: - Medication Reconciliation Form sp3 - Thank You Letter sp3 - Antibiotic Education sp3 - Prescription Opioid Use sp3 - Patient Portal Instructions sp3 - Leadership Thank You Letter sp3 Prescriptions: - levofloxacin 500 mg Oral Tablet - take 1 tablet by ORAL route once daily for 7 days; 7 tablet; Refills: 0, sp3 Product Selection Permitted Signatures: Dispatcher [employer] Kj Damian, RN RN Osvaldo Ochoa MD MD sp3 Brandi Carballo RN RN nj1 Shanell Moore RN jw7
--- NOTE | 2023-01-29 18:25 | ER ---
Nurse's Notes [facility] Name: Shahbaz Harper Age: 82 yrs Sex: Male : 1940 Arrival Date: 01/29/2023 Time: 13:36 Bed 3 Private MD: Diagnosis: Urinary tract infection, fever Presentation: 01/29 13:40 Chief complaint: Spouse and/or significant other states: concerned he may have had a nj1 mini stroke or a stroke yesterday. States he fell yesterday and again today at around noon. Pt on antiplatelet but not on anticoagulant. LKN yesterday morning per statement. Pt denies pain. 13:40 Coronavirus screen: Vaccine status: Patient reports receiving the 2nd dose of the covid nj1 vaccine. Ebola Screen: Patient denies travel to an Ebola-affected area in the 21 days before illness onset. No acute neurological deficit is noted. Initial Sepsis Screen: Does the patient meet any 2 criteria?. Initial Sepsis Screen: Does the patient meet any 2 criteria? No. Patient's initial sepsis screen is negative. Does the patient have a suspected source of infection? No. Patient's initial sepsis screen is negative. Risk Assessment: Do you want to hurt yourself or someone else? Patient reports no desire to harm self or others. Onset of symptoms was January 28, 2023. 13:40 Method Of Arrival: Wheelchair nj1 13:40 Acuity: OLE 2 nj1 Triage Assessment: 13:45 The onset of the patients symptoms was January 28, 2023 at 12:00. bp 13:45 Neuro: Moves all extremities. in bilateral arm(s) leg(s) Speech is normal, Facial nj1 symmetry appears normal. Historical: - Allergies: 13:56 No Known Allergies; nj1 - PMHx: 13:56 Hypertensive disorder; Cerebrovascular accident; Hypercholesterolemia; nj1 - PSHx: 13:56 tumor removal; nj1 - Immunization history:: Client reports receiving the 2nd dose of the Covid vaccine. - Social history:: Smoking status: Patient denies any tobacco usage or history of. Screenin:21 [facility] ED Fall Risk Assessment (Adult) History of falling in the last 3 months, kd3 including since admission No falls in past 3 months (0 pts) Confusion or Disorientation No (0 pts) Intoxicated or Sedated No (0 pts) Impaired Gait No (0 pts) Mobility Assist Device Used No (0 pt) Altered Elimination No (0 pt) Score/Fall Risk Level 0 - 2 = Low Risk Maintained a safe environment. Abuse screen: Denies threats or abuse. Denies injuries from another. Nutritional screening: No deficits noted. Tuberculosis screening: No symptoms or risk factors identified. Assessment: 19:20 General: Appears in no apparent distress. Behavior is calm, cooperative. Pain: Denies kd3 pain. Neuro: Level of Consciousness is awake, alert, obeys commands, Oriented to person, place, time, situation. Cardiovascular: Patient's skin is warm and dry. Respiratory: Airway is patent Trachea midline Respiratory effort is even, unlabored, Respiratory pattern is regular, symmetrical. 20:00 Reassessment: Patient appears in no apparent distress at this time. Patient and/or jw7 family updated on plan of care and expected duration. Pain level reassessed. Patient is alert, oriented x 3, equal unlabored respirations, skin warm/dry/pink. Patient states feeling better. Vital Signs: 13:40 BP 124 / 73; Pulse 87; Resp 18; Temp 100.2; Pulse Ox 96% on R/A; Weight 81.65 kg; nj1 Height 5 ft. 8 in. ; Pain 0/10; 19:21 BP 133 / 81; Pulse 64; Resp 17; Pulse Ox 99% on R/A; kd3 20:02 BP 126 / 75; Pulse 63; Resp 18 S; Pulse Ox 98% on R/A; jw7 13:40 Body Mass Index 27.37 (81.65 kg, 172.72 cm) nj1 13:40 Pain Scale: Adult [facility] ED Course: 13:38 Patient arrived in ED. im 13:44 Osvaldo Cerrato MD is Attending Physician. sp3 13:44 Kj Burnett, RN is Primary Nurse. bp 13:56 Triage completed. nj1 13:56 Arm band placed on. nj1 14:28 Inserted saline lock: 20 gauge in left antecubital area, using aseptic technique. Blood ds4 collected. 14:29 CT Head Brain wo Cont In Process Unspecified. EDMS 14:39 Flu Sent. ds4 14:39 SARS-COV-2 RT PCR Sent. ds4 14:45 Stroke CXR 1 View In Process Unspecified. EDMS 20:15 No provider procedures requiring assistance completed. IV discontinued, intact, jw7 bleeding controlled, No redness/swelling at site. Pressure dressing applied. 20:16 Patient has correct armband on for positive identification. Provided Education on: jw7 discharge instructions and medications. Administered Medications: 14:20 Drug: NS 0.9% IV 500 ml Route: IV; Rate: bolus; Site: left antecubital; bp 20:14 Follow up: Response: No adverse reaction; IV Status: Completed infusion; IV Intake: jw7 500ml 14:20 Drug: Acetaminophen PO 650 mg Route: PO; bp 18:45 Follow up: Response: No adverse reaction bp 18:30 Drug: levofloxacin IVPB 500 mg Volume: 100 ml; Route: IVPB; Infused Over: 60 mins; bp Site: left antecubital; 20:14 Follow up: Response: No adverse reaction; IV Status: Completed infusion; IV Intake: jw7 100ml Medication: 19:20 VIS not applicable for this client. kd3 Intake: 20:14 IV: 100ml; Total: 100ml. jw7 20:14 IV: 500ml; Total: 600ml. jw7 Outcome: 18:25 Discharge ordered by . sp3 20:15 Discharged to home via wheelchair, with family. jw7 20:15 Condition: stable 20:15 Discharge instructions given to patient, family, Instructed on discharge instructions, follow up and referral plans. medication usage, Demonstrated understanding of instructions, follow-up care, medications, Prescriptions given X 1. 20:16 Patient left the ED. jw7 Signatures: Dispatcher [employer] EDWA Bipin Anthony ds4 Kj Burnett, RN RN bp Osvaldo Cerrato MD MD sp3 Laure Gottlieb RN RN kd3 Shanell Moore RN RN jw7 Brandi Carballo RN RN nj1 Reyna Lino im
[2023-01-29] MEDS ORDERED: Levofloxacin500mg IV 500 MG/100 ML BAG IV ONE (18:58)
[2023-01-29 20:48] VITALS: TEMP 100.2
[2023-01-29 20:51] VITALS: BP 126/75; O2SAT 98
--- NOTE | 2023-01-30 17:58 | EKG ---
Test Date: 2023-01-29 Test Time: 14:38:00 [employer] Analyst: BP MEASUREMENT RESULTS: Intervals: Rate: 75 ND: 172 QRSD: 104 QT: 392 QTc: 437 [place]: P: 53 ND: 172 QRS: -25 T: 54 INTERPRETIVE STATEMENTS: Normal sinus rhythm Normal ECG Compared to ECG 05/10/2021 05:32:20 Sinus arrhythmia no longer present Electronically Signed On 01-30-23 17:56:35 CDT by Guille Nick
== END 2023-01-29 20:16 | disposition home or self-care (01) ==
LOC: ER 13:36
DX: N39.0 Urinary tract infection, site not specified (principal); R53.1 Weakness; I10 Essential (primary) hypertension; Z20.822 Contact with and (suspected) exposure to COVID-19; Z86.73 Personal history of transient ischemic attack (TIA), and cerebral infarction without residual deficits; Z79.01 Long term (current) use of anticoagulants; Z79.82 Long term (current) use of aspirin
CPT/HCPCS: 96365; 96361; 93005; 87040 ×2; 87088; 85025; 81001; 87086; 80048; 36415; 83735; 85610; 80076; 83605; 85730; 84484; 87635; 87804 ×2; 70450; 71045; 99284; 96366; J7040; 87077; 87186